=== PATIENT | male | born 1935 | race Hispanic/Latino ===

== ENCOUNTER 2017-10-08 23:04 | Inpatient (IN) | payer MEDICARE ==
[2017-10-08 23:18] VITALS: BMI 33.9
--- NOTE | 2017-10-08 23:47 | C.PDOC ---
"History Of Present Illness 82 year old male is transferred from [facility] for OR admission. As per [facility] records has PMHx of respiratory failure, subdural hematoma, CVA, Afibm craniotomy. Patient is completely unresponsive currently on a propolol drip. Patient unable to provide any history. Chief Complaint (Nursing): Respiratory Distress History Per: EMS History/Exam Limitations: clinical condition Onset/Duration Of Symptoms: Days Current Symptoms Are (Timing): Still Present Initiating Event: Upper Respiratory Illness Current Respiratory Medications: See Home Med List Reports Recently: Seen In ED ([facility]) Recent travel outside of the [place]: No Additional History Per: Prior Records Past Medical History Reviewed: Historical Data, Nursing Documentation, Vital Signs Vital Signs: Last Vital Signs Temp 95.8 F L 10/09/17 02:29 Pulse 111 H 10/09/17 02:29 Resp 20 10/09/17 02:29 BP 146/80 10/09/17 02:29 Pulse Ox 96 10/09/17 02:29 - Medical History PMH: Alzheimer's Disease, Atrial Fibrillation, Cardia Arrhythmia, Dementia, HTN , Hypercholesterolemia, Pneumonia Denies: Diabetes, Hepatitis, HIV, Chronic Kidney Disease, Seizures, Sexually Transmitted Disease Other Surgeries: craniotomy - [facility] Procedures EXTIRPATION OF MATTER FROM SUBDURAL SPACE, OPEN APPROACH (09/20/17) INSERTION OF ENDOTRACHEAL AIRWAY INTO TRACHEA, VIA OPENING (09/20/17) INSERTION OF FEEDING DEVICE INTO STOMACH, VIA OPENING (09/20/17) RESPIRATORY VENTILATION, GREATER THAN 96 CONSECUTIVE HOURS (09/20/17) TRANSFUSE NONAUT FROZEN PLASMA IN PERIPH VEIN, PERC (09/20/17) Family History: States: Unknown Family Hx - Social History Hx Alcohol Use: No Hx Substance Use: No - Immunization History Hx Tetanus Toxoid Vaccination: No Hx Influenza Vaccination: (unknown) Hx Pneumococcal Vaccination: (unknown) Review Of Systems Review Of Systems: ROS cannot be obtained secondary to pt's inabilty to answer questions. Physical Exam - Physical Exam Appears: Other (completely unresponsive ) Skin: Normal Color, Warm, Dry, Other (hypothermic) Head: Atraumatic, Normacephalic Oral Mucosa: Moist Neck: Supple Chest: Symmetrical Cardiovascular: Rhythm Regular Respiratory: Other (assisted ventilation, intubated) Gastrointestinal/Abdominal: Soft, No Tenderness, No Guarding, No Rebound, Other (GT tube in place) Extremity: Bilateral: Atraumatic, Normal Color And Temperature Pulses: Left Dorsalis Pedis: Normal, Right Dorsalis Pedis: Normal Neurological/Psych: No Response To Commands Gait: Unable To Assess ED Course And Treatment - Laboratory Results Result Diagrams: 10/08/17 23:46 10/08/17 23:46 O2 Sat by Pulse Oximetry: 95 (assisted ventilation) Pulse Ox Interpretation: Normal - Radiology CXR: Interpreted by Me, Viewed By Me CXR Interpretation: Yes: Other (bilateral lower lung field density) - CT Scan/US CT chest Other Rad Studies (CT/US): Read By Radiologist, Radiology Report Reviewed CT/US Interpretation: EXAM: CT Chest Without Intravenous Contrast. CLINICAL HISTORY: 82 years old, male; Pain; Chest pain; Additional info: Pneumonia. TECHNIQUE: Axial computed tomography images of the chest without intravenous contrast. All CT scans at this. facility use at least one of these dose optimization techniques: automated exposure control; mA. and/or kV adjustment per patient size (includes targeted exams where dose is matched to clinical. indication); or iterative reconstruction. 597 images are submitted. Coronal and sagittal reformatted images were created and reviewed. COMPARISON: No relevant prior studies available. FINDINGS: Artifacts: Limited due to motion and misregistration artifacts. Lungs: Bibasilar right middle lobe and lingular nonspecific infiltrates and consolidation are present,. consistent with atelectasis or pneumonia. Pleural space: Small bilateral pleural effusions. No pneumothorax. Heart: Cardiomegaly. Small pericardial effusion. Bones/joints: There is mild vertebral body height loss at L1 and L2 and minimal at T12. No acute. fracture. No dislocation. Soft tissues: Unremarkable. Vasculature: Unremarkable. No thoracic aortic aneurysm. Lymph nodes: Unremarkable. No enlarged lymph nodes. Pancreas: Fatty infiltration of the pancreas. Adrenals: Normal adrenal glands. Kidneys and ureters: Bilateral perinephric scarring may be a sequela of infection, inflammation or. aging. Stomach and bowel: Diverticulosis.Large amount of stool in the colon. Correlation with patient's. clinical history of constipation is recommended. Nonspecific gastric thickening with surrounding. nonspecific infiltration Right-sided pleural calcifications. likely due to under distention. Correlation. with clinical data is recommended if gastritis is suspected. LAUREN ELDER | Preliminary Radiology Report. CONFIDENTIALITY STATEMENT. This report is intended only for the use of the referring physician, and only in accordance with law, If you received this in error, call [phone]. Page 2 of 2. Tubes, lines and devices: The endotracheal tube is above the araseli. The feeding tube is in the. gastric fundus. IMPRESSION: 1. Bibasilar right middle lobe and lingular nonspecific infiltrates and consolidation are present, . consistent with atelectasis or pneumonia. 2. Small bilateral pleural effusions. Thank you for allowing us to participate in the care of your patient. Dictated and Authenticated by: Mervin Beckwith MD. 10/09/2017 2:01 AM Eastern Time ([place] & [place]) CT head Other Rad Studies (CT/US): Read By Radiologist, Radiology Report Reviewed CT/US Interpretation: Addendum created by Mervin Beckwith MD on 10/09/2017 2:14 AM Eastern Time ([place] & [place]). There is interval resolution of bilateral postop extra-axial air. The subdural drains have been. discontinued. Initial Report created on 10/09/2017 2:04 AM Eastern Time ([place] & [place]). EXAM: CT Head Without Intravenous Contrast. CLINICAL HISTORY: 82 years old, male; Pain; Headache and other: R/O bleed; Prior surgery; Patient HX: 6-27-18. TECHNIQUE: Axial computed tomography images of the head/brain without intravenous contrast. All CT scans at. this facility use at least one of these dose optimization techniques: automated exposure control; mA. and/or kV adjustment per patient size (includes targeted exams where dose is matched to clinical. indication); or iterative reconstruction. 408 images are submitted. COMPARISON : No relevant prior studies available. FINDINGS: Brain: Bilateral convexity left more than right chronic subdural hematomas versus hygromas. Cerebral and cerebellar volume loss. Patchy hypodensity is seen in the periventricular and. subcortical white matter. There is no evidence of acute intracranial hemorrhage. Right frontal. encephalomalacia. Scattered multifocal hypodensities representing subacute to chronic ischemic. change. Ventricles: Unremarkable. No ventriculomegaly. Bones/joints: Bilateral craniectomy with osseous hardware and overlying scalp skin jose. Sphenoid sinus disease with hyperostosis. Left posterior ethmoid air cell disease. No acute fracture. Soft tissues: Unremarkable. Sinuses: Unremarkable. No acute sinusitis. Mastoid air cells: Unremarkable. No mastoid effusion. IMPRESSION: LAUREN ELDER | Preliminary Radiology Report. CONFIDENTIALITY STATEMENT. This report is intended only for the use of the referring physician , and only in accordance with law, If you received this in error, call . Page 2 of 2. 1. Bilateral convexity left more than right chronic subdural hematomas versus hygromas. 2. There is no evidence of acute intracranial hemorrhage. Thank you for allowing us to participate in the care of your patient. Dictated and Authenticated by: Mervin Beckwith MD. 2017 2:04 AM Eastern Time ([place] & [place]) Medical Decision Making Medical Decision Making: Plan: * VBG * CT head * CT chest * EKG * LAbs * CXR * Blood culture * Ventilator Dr. Carballo made aware of the patient. Dr. Vanegas [facility] electronics technology department chair was also notified and will see the patient for an evaluation. Disposition Discussed With : Danika Carballo Doctor Will See Patient In The: Hospital Counseled Patient/Family Regarding: Diagnosis - Disposition Disposition: HOSPITALIZED Disposition Time: 01:17 Condition: GUARDED - Clinical Impression Clinical Impression: Respiratory failure - Scribe Statement The provider has reviewed the documentation as recorded by the Scribe Matt Quinn All medical record entries made by the Scribe were at my direction and personally dictated by me. I have reviewed the chart and agree that the record accurately reflects my personal performance of the history, physical exam, medical decision making, and the department course for this patient. I have also personally directed, reviewed, and agree with the discharge instructions and disposition."
[2017-10-08 23:57] LABS: INR 1.1; PROTHROMBIN TIME 12.2 SECONDS (9.7-12.2)
[2017-10-09 00:02] LABS: ALB/GLOB RATIO 0.8 (1.0-2.1); ALBUMIN 2.3 g/dL (3.5-5.0); ALT/SGPT 52 U/L (21-72); AST/SGOT 42 U/L (17-59); BLOOD UREA NITROGEN 66 mg/dL (9-20); CALCIUM 8.4 mg/dl (8.6-10.4); GFR AFRICAN-AMERICAN > 60; GFR NON-AFRICAN AMERICAN > 60
[2017-10-09 00:06] LABS: EOS # 0.1 K/uL (0.0-0.7); EOS % 0.5 % (0.0-4.0); HEMOGLOBIN 8.5 g/dL (12.0-18.0); MONO # 0.5 K/uL (0.0-0.8); RBC 2.67 Mil/uL (4.40-5.90); WHITE BLOOD COUNT 11.4 K/uL (4.8-10.8)
[2017-10-09 00:10] LABS: B-TYPE NATRIURETIC PEPTIDE 6600 pg/mL (0-900); BASO % 0.3 % (0.0-2.0); MEAN CORPUSCULAR HGB CONC 33.6 g/dL (33.0-37.0); MEAN PLATELET VOLUME 8.9 fL (7.2-11.7); MONO % 4.6 % (0.0-10.0); NEUT # 9.8 K/uL (1.8-7.0); NEUT % 85.6 % (50.0-75.0); NRBC % 0.2 % (0.0-2.0); PLATELET COUNT 204 K/uL (130-400); RED CELL DISTRIBUTION WIDTH 15.2 % (11.5-14.5)
[2017-10-09 00:14] LABS: VENOUS BLOOD GAS BASE EXCESS -0.7 mmol/L (0.0-2.0); VENOUS BLOOD GAS PCO2 40 mmHg (40-60); VENOUS BLOOD GAS PO2 34 mm/Hg (30-55); VENOUS BLOOD PH 7.39 (7.32-7.43)
[2017-10-09] MEDS ORDERED: Piperacillin/Tazobact 3.375 GM in Sodium Chloride 100 ML IVPB SCH (01:00)
[2017-10-09 01:10] LABS: BANDS 9 % (0-2); LYMPHOCYTE 12 % (20-40); MONOCYTE 7 % (0-10); MYELOCYTE 4 % (0-0); NEUTROPHIL 68 % (50-75); PLATELET ESTIMATE NORMAL (NORMAL); SMUDGE CELLS PRESENT; TOTAL CELLS COUNTED 100
--- NOTE | 2017-10-09 02:44 | CP.PCM.CON ---
History of Present Illness - History of Present Illness History of Present Illness: 82 year old male is transferred from [facility] for OR admission. h/o Atrial fibrillation,HTN,CVA,hyperlipidemia,DM,subdural hematoma s/p craniotomy evacuation,respiratory failure on ventilator recently transferred to [facility] . Patient unresponsive currently on a propolol drip when transferred to ER. Patient unable to provide any history. h/o recent herpes zosterinfection history from chart Review of Systems - Review of Systems Systems not reviewed;Unavailable: Intubated, Other Review of Systems: unable to get history due to mental status Past Patient History - Infectious Disease Hx of Infectious Diseases: None - Tetanus Immunizations Tetanus Immunization: Unknown - Past Social History Smoking Status: Never Smoked - CARDIAC Hx Atrial Fibrillation: Yes Hx Cardia Arrhythmia: Yes Hx Hypercholesterolemia: Yes Hx Hypertension: Yes - PULMONARY Hx Pneumonia: Yes - NEUROLOGICAL Hx Alzheimer's Disease: Yes Hx Dementia: Yes Hx Seizures: No - HEENT Hx HEENT Problems: No - RENAL Hx Chronic Kidney Disease: No - ENDOCRINE/METABOLIC Hx Diabetes Mellitus Type 1: Yes - HEMATOLOGICAL/ONCOLOGICAL Hx Human Immunodeficiency Virus (HIV): No - INTEGUMENTARY Hx Dermatological Problems: No - MUSCULOSKELETAL/RHEUMATOLOGICAL Hx Falls: Yes - GASTROINTESTINAL Hx Gastrointestinal Disorders: No Other/Comment: pt has oral gastric feeding tube on arrival to ed - GENITOURINARY/GYNECOLOGICAL Hx Sexually Transmitted Disorders: No - PSYCHIATRIC Hx Substance Use: No - SURGICAL HISTORY Hx Surgeries: No Other/Comment: august 2017, bilat craniotomy abd surgery - ANESTHESIA Hx Anesthesia: Yes Hx Anesthesia Reactions: No Hx Malignant Hyperthermia: No Meds Allergies/Adverse Reactions: Allergies Allergy/AdvReac Type Severity Reaction Status Date / Time No Known Allergies Allergy Verified 10/08/17 23:18 - Medications Medications: Current Medications Diltiazem HCl (Cardizem) 30 mg PO Q6 CHARLEEN Furosemide (Lasix) 20 mg PO DAILY CHARLEEN Piperacillin Sod/Tazobactam (Sod 3.375 gm/ Sodium Chloride) 100 mls @ 200 mls/ hr IVPB Q8H CHARLEEN PRN Reason: Protocol Pantoprazole Sodium (Protonix Inj) 40 mg IVP DAILY CHARLEEN Rosuvastatin Calcium (Crestor) 5 mg PO QPM CHARLEEN Physical Exam - Constitutional Appears: No Acute Distress - Head Exam Head Exam: NORMOCEPHALIC Additional comments: jose on scalp bilaterally - Eye Exam Eye Exam: PERRL. absent: Scleral icterus - ENT Exam ENT Exam: Mucous Membranes Dry - Neck Exam Additional comments: healing rash left neck - Respiratory Exam Respiratory Exam: NORMAL BREATHING PATTERN. absent: Respiratory Distress Additional comments: decreased breath sounds in bases - Cardiovascular Exam Cardiovascular Exam: Tachycardia, REGULAR RHYTHM. absent: JVD - GI/Abdominal Exam GI & Abdominal Exam: Normal Bowel Sounds, Soft - Extremities Exam Extremities exam: Positive for: pedal edema Additional comments: edema of all extremities PICC line right arm - Neurological Exam Additional comments: unresponsive to painful stimuli(off diprivan) - Skin Skin Exam: Normal Color, Rash Additional comments: healing rash left face/neck Results - Vital Signs Recent Vital Signs: Last Vital Signs Temp 95.8 F L 10/09/17 02:29 Pulse 111 H 10/09/17 02:29 Resp 20 10/09/17 02:29 BP 146/80 10/09/17 02:29 Pulse Ox 95 10/09/17 02:32 - Labs Result Diagrams: 10/08/17 23:46 10/08/17 23:46 Labs: Laboratory Results - last 24 hr 10/08/17 10/08/17 10/08/17 23:20 23:46 23:46 WBC 11.4 H RBC 2.67 L Hgb 8.5 L Hct 25.4 L MCV 95.0 H MCH 32.0 H MCHC 33.6 RDW 15.2 H Plt Count 204 MPV 8.9 Neut % (Auto) 85.6 H Lymph % (Auto) 9.0 L Bond % (Auto) 4.6 Eos % (Auto) 0.5 Baso % (Auto) 0.3 Neut # (Auto) 9.8 H Lymph # (Auto) 1.0 Bond # (Auto) 0.5 Eos # (Auto) 0.1 Baso # (Auto) 0.0 Neutrophils % (Manual) 68 Band Neutrophils % 9 H Lymphocytes % (Manual) 12 L Monocytes % (Manual) 7 Myelocytes % 4 H Smudge Cells Present Platelet Estimate Normal PT 12.2 INR 1.1 APTT 24 pO2 VBG pH VBG pCO2 VBG HCO3 VBG Total CO2 VBG O2 Sat (Calc) VBG Base Excess VBG Potassium Glucose Lactate FiO2 PEEP Sodium Potassium Chloride Carbon Dioxide Anion Gap BUN Creatinine Est GFR ( Amer) Est GFR (Non-Af Amer) POC Glucose (mg/dL) 332 H Random Glucose Calcium Total Bilirubin AST ALT Alkaline Phosphatase NT-Pro-B Natriuret Pep Total Protein Albumin Globulin Albumin/Globulin Ratio Venous Blood Potassium 10/08/17 10/09/17 23:46 00:00 WBC RBC Hgb Hct MCV MCH MCHC RDW Plt Count MPV Neut % (Auto) Lymph % (Auto) Bond % (Auto) Eos % (Auto) Baso % (Auto) Neut # (Auto) Lymph # (Auto) Bond # (Auto) Eos # (Auto) Baso # (Auto) Neutrophils % (Manual) Band Neutrophils % Lymphocytes % (Manual) Monocytes % (Manual) Myelocytes % Smudge Cells Platelet Estimate PT INR APTT pO2 34 VBG pH 7.39 VBG pCO2 40 VBG HCO3 23.5 VBG Total CO2 25.4 VBG O2 Sat (Calc) 70.0 H VBG Base Excess -0.7 L VBG Potassium 4.3 Glucose 316 H Lactate 1.7 FiO2 50.0 PEEP 5 Sodium 135 138.0 Potassium 4.4 Chloride 106 109.0 H Carbon Dioxide 20 L Anion Gap 14 BUN 66 H Creatinine 1.1 Est GFR ( Amer) > 60 Est GFR (Non-Af Amer) > 60 POC Glucose (mg/dL) Random Glucose 298 H Calcium 8.4 L Total Bilirubin 0.7 AST 42 ALT 52 Alkaline Phosphatase 165 H D NT-Pro-B Natriuret Pep 6600 H Total Protein 5.4 L Albumin 2.3 L Globulin 3.1 Albumin/Globulin Ratio 0.8 L Venous Blood Potassium 4.3 - EKG Data EKG Interpreted by: Myself - Imaging and Cardiology Chest x-ray Status: Image reviewed by me CT scan - head Status: Image reviewed by me, Report reviewed by me Assessment & Plan - Assessment and Plan (Free Text) Assessment: 1.Respiratory failure on vent transferred for OR procedure 2.Hypothermia/Pneumonia antibiotics Vent support follow up cultures 3.anemia f/u H/H 4.h/o Atrial fibrillation/CVA/HTN/Hyperlipidemia continue meds 5.DM-accucheck with coverage
[2017-10-09] MEDS: Piperacillin/Tazobact 3.375 GM in Sodium Chloride 100 ML IVPB SCH ×3 (04:00→20:44)
[2017-10-09] MEDS: (Novolin R) Insulin Human Regular 100 units/ml vial SC SCH ×3 (05:13→18:20)
[2017-10-09 06:26] LABS: ABG ALLEN TEST POS; ARTERIAL BLOOD GAS HCO3 23.4 mmol/L (21-28); ARTERIAL BLOOD GAS HEMOGLOBIN 8.8 g/dL (11.7-17.4); ARTERIAL BLOOD GAS O2 SAT 95.6 % (95-98); ARTERIAL BLOOD GAS PCO2 33 mm/Hg (35-45); ARTERIAL BLOOD GAS PH 7.43 (7.35-7.45); ARTERIAL BLOOD GAS PO2 103 mm/Hg (80-100); ARTERIAL BLOOD GAS TCO2 22.9 mmol/L (22-28)
[2017-10-09 06:41] LABS: BASO % 0.1 % (0.0-2.0); EOS % 0.3 % (0.0-4.0); HEMOGLOBIN 8.3 g/dL (12.0-18.0); LYMPH # 0.7 K/uL (1.0-4.3); LYMPH % 6.8 % (20.0-40.0); MEAN CELL VOLUME 94.4 fL (80.0-94.0); MEAN CORPUSCULAR HEMOGLOBIN 31.2 pg (27.0-31.0); MEAN CORPUSCULAR HGB CONC 33.1 g/dL (33.0-37.0); MEAN PLATELET VOLUME 8.5 fL (7.2-11.7); MONO # 0.5 K/uL (0.0-0.8); MONO % 4.7 % (0.0-10.0); NEUT # 9.5 K/uL (1.8-7.0); NEUT % 88.1 % (50.0-75.0); NRBC % 0.4 % (0.0-2.0); PLATELET COUNT 220 K/uL (130-400); RBC 2.67 Mil/uL (4.40-5.90); RED CELL DISTRIBUTION WIDTH 15.3 % (11.5-14.5); WHITE BLOOD COUNT 10.8 K/uL (4.8-10.8)
--- NOTE | 2017-10-09 07:06 | CP.PCM.CON ---
<Be Brooks - Last Filed: 10/09/17 07:18> History of Present Illness - History of Present Illness History of Present Illness: Surgery: Dr. Loya CC: Respiratory failure HPI: 82M w. 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 Pt is intubated GCS 3T, hx gathered from review of medical records. PMH: See above PSH: craniotomy Meds: MAR reviewed NKDA Social: no ETOH/tobacco/drugs Fhx: unknown Review of Systems - Review of Systems Systems not reviewed;Unavailable: Acuity of Condition Past Patient History - Infectious Disease Hx of Infectious Diseases: None - Tetanus Immunizations Tetanus Immunization: Unknown - Past Medical History & Family History Past Medical History?: Yes - Past Social History Smoking Status: Never Smoked - CARDIAC Hx Atrial Fibrillation: Yes Hx Cardia Arrhythmia: Yes Hx Hypercholesterolemia: Yes Hx Hypertension: Yes - PULMONARY Hx Pneumonia: Yes - NEUROLOGICAL Hx Alzheimer's Disease: Yes Hx Dementia: Yes Hx Seizures: No - HEENT Hx HEENT Problems: No - RENAL Hx Chronic Kidney Disease: No - ENDOCRINE/METABOLIC Hx Diabetes Mellitus Type 1: Yes - HEMATOLOGICAL/ONCOLOGICAL Hx Human Immunodeficiency Virus (HIV): No - INTEGUMENTARY Hx Dermatological Problems: No - MUSCULOSKELETAL/RHEUMATOLOGICAL Hx Falls: Yes - GASTROINTESTINAL Hx Gastrointestinal Disorders: No Other/Comment: pt has oral gastric feeding tube on arrival to ed - GENITOURINARY/GYNECOLOGICAL Hx Sexually Transmitted Disorders: No - PSYCHIATRIC Hx Substance Use: No - SURGICAL HISTORY Hx Surgeries: No Other/Comment: august 2017, bilat craniotomy abd surgery - ANESTHESIA Hx Anesthesia: Yes Hx Anesthesia Reactions: No Hx Malignant Hyperthermia: No Meds Allergies/Adverse Reactions: Allergies Allergy/AdvReac Type Severity Reaction Status Date / Time No Known Allergies Allergy Verified 10/08/17 23:18 - Medications Medications: Current Medications Diltiazem HCl (Cardizem) [address] [facility] Last Admin: 10/09/17 05:12 Dose: 30 mg Furosemide (Lasix) 20 mg PO DAILY [facility] Piperacillin Sod/Tazobactam (Sod 3.375 gm/ Sodium Chloride) 100 mls @ 200 mls/ hr IVPB Q8H [facility] PRN Reason: Protocol Last Admin: 10/09/17 04:00 Dose: 200 mls/hr Insulin Human Regular (Novolin R) 0 unit SC Q6 [facility] PRN Reason: Protocol Last Admin: 10/09/17 05:13 Dose: Not Given Pantoprazole Sodium (Protonix Inj) [address] [facility] Rosuvastatin Calcium (Crestor) [address] [facility] Physical Exam - Constitutional Appears: Chronically Ill - Head Exam Head Exam: ATRAUMATIC, NORMOCEPHALIC - ENT Exam ENT Exam: Mucous Membranes Dry - Respiratory Exam Additional comments: intubated - Cardiovascular Exam Cardiovascular Exam: REGULAR RHYTHM - GI/Abdominal Exam GI & Abdominal Exam: Soft. absent: Distended, Firm, Tenderness - Extremities Exam Extremities exam: Negative for: calf tenderness, pedal edema Results - Vital Signs Recent Vital Signs: Last Vital Signs Temp 97.0 F L 10/09/17 03:04 Pulse 100 H 10/09/17 03:04 Resp 14 10/09/17 03:04 BP 143/89 10/09/17 03:04 Pulse Ox 97 10/09/17 03:04 - Labs Result Diagrams: 10/09/17 06:32 10/09/17 06:32 Labs: Laboratory Results - last 24 hr 10/08/17 10/08/17 10/08/17 23:20 23:46 23:46 WBC 11.4 H RBC 2.67 L Hgb 8.5 L Hct 25.4 L MCV 95.0 H MCH 32.0 H MCHC 33.6 RDW 15.2 H Plt Count 204 MPV 8.9 Neut % (Auto) 85.6 H Lymph % (Auto) 9.0 L Williamson % (Auto) 4.6 Eos % (Auto) 0.5 Baso % (Auto) 0.3 Neut # (Auto) 9.8 H Lymph # (Auto) 1.0 Williamson # (Auto) 0.5 Eos # (Auto) 0.1 Baso # (Auto) 0.0 Neutrophils % (Manual) 68 Band Neutrophils % 9 H Lymphocytes % (Manual) 12 L Monocytes % (Manual) 7 Myelocytes % 4 H Smudge Cells Present Platelet Estimate Normal PT 12.2 INR 1.1 APTT 24 Puncture Site pCO2 pO2 HCO3 ABG pH ABG Total CO2 ABG O2 Saturation ABG Base Excess ABG Hemoglobin ABG Carboxyhemoglobin POC ABG HHb (Measured) ABG Methemoglobin Jose Raul Test VBG pH VBG pCO2 VBG HCO3 VBG Total CO2 VBG O2 Sat (Calc) VBG Base Excess VBG Potassium A-a O2 Difference Respiratory Index Hgb O2 Saturation Glucose Lactate Vent Mode Mechanical Rate FiO2 Tidal Volume PEEP Sodium Potassium Chloride Carbon Dioxide Anion Gap BUN Creatinine Est GFR ( Amer) Est GFR (Non-Af Amer) POC Glucose (mg/dL) 332 H Random Glucose Calcium Total Bilirubin AST ALT Alkaline Phosphatase NT-Pro-B Natriuret Pep Total Protein Albumin Globulin Albumin/Globulin Ratio Venous Blood Potassium 10/08/17 10/09/17 10/09/17 23:46 00:00 05:15 WBC RBC Hgb Hct MCV MCH MCHC RDW Plt Count MPV Neut % (Auto) Lymph % (Auto) Williamson % (Auto) Eos % (Auto) Baso % (Auto) Neut # (Auto) Lymph # (Auto) Williamson # (Auto) Eos # (Auto) Baso # (Auto) Neutrophils % (Manual) Band Neutrophils % Lymphocytes % (Manual) Monocytes % (Manual) Myelocytes % Smudge Cells Platelet Estimate PT INR APTT Puncture Site Lr pCO2 33 L pO2 34 103 H HCO3 23.4 ABG pH 7.43 ABG Total CO2 22.9 ABG O2 Saturation 95.6 ABG Base Excess -2.0 ABG Hemoglobin 8.8 L ABG Carboxyhemoglobin 0 L POC ABG HHb (Measured) 4.4 ABG Methemoglobin 0.2 Jose Raul Test Pos VBG pH 7.39 VBG pCO2 40 VBG HCO3 23.5 VBG Total CO2 25.4 VBG O2 Sat (Calc) 70.0 H VBG Base Excess -0.7 L VBG Potassium 4.3 A-a O2 Difference 212.0 Respiratory Index 2.1 Hgb O2 Saturation 95.3 Glucose 316 H Lactate 1.7 Vent Mode Prvc Mechanical Rate 14 FiO2 50.0 50.0 Tidal Volume 500 PEEP 5 5 Sodium 135 138.0 Potassium 4.4 Chloride 106 109.0 H Carbon Dioxide 20 L Anion Gap 14 BUN 66 H Creatinine 1.1 Est GFR ( Amer) > 60 Est GFR (Non-Af Amer) > 60 POC Glucose (mg/dL) Random Glucose 298 H Calcium 8.4 L Total Bilirubin 0.7 AST 42 ALT 52 Alkaline Phosphatase 165 H D NT-Pro-B Natriuret Pep 6600 H Total Protein 5.4 L Albumin 2.3 L Globulin 3.1 Albumin/Globulin Ratio 0.8 L Venous Blood Potassium 4.3 10/09/17 10/09/17 05:43 06:32 WBC 10.8 RBC 2.67 L Hgb 8.3 L Hct 25.2 L MCV 94.4 H MCH 31.2 H MCHC 33.1 RDW 15.3 H Plt Count 220 MPV 8.5 Neut % (Auto) 88.1 H Lymph % (Auto) 6.8 L Williamson % (Auto) 4.7 Eos % (Auto) 0.3 Baso % (Auto) 0.1 Neut # (Auto) 9.5 H Lymph # (Auto) 0.7 L Williamson # (Auto) 0.5 Eos # (Auto) 0.0 Baso # (Auto) 0.0 Neutrophils % (Manual) Band Neutrophils % Lymphocytes % (Manual) Monocytes % (Manual) Myelocytes % Smudge Cells Platelet Estimate PT INR APTT Puncture Site pCO2 pO2 HCO3 ABG pH ABG Total CO2 ABG O2 Saturation ABG Base Excess ABG Hemoglobin ABG Carboxyhemoglobin POC ABG HHb (Measured) ABG Methemoglobin Jose Raul Test VBG pH VBG pCO2 VBG HCO3 VBG Total CO2 VBG O2 Sat (Calc) VBG Base Excess VBG Potassium A-a O2 Difference Respiratory Index Hgb O2 Saturation Glucose Lactate Vent Mode Mechanical Rate FiO2 Tidal Volume PEEP Sodium Potassium Chloride Carbon Dioxide Anion Gap BUN Creatinine Est GFR ( Amer) Est GFR (Non-Af Amer) POC Glucose (mg/dL) 281 H Random Glucose Calcium Total Bilirubin AST ALT Alkaline Phosphatase NT-Pro-B Natriuret Pep Total Protein Albumin Globulin Albumin/Globulin Ratio Venous Blood Potassium Assessment & Plan - Assessment and Plan (Free Text) Assessment: 82M w. respiratory failure -Perc-trach and PEG when medically optimized, likely thursday -d/w attending [facility] PGY4 <Jamshid Loya B - Last Filed: 10/10/17 23:00> Meds - Medications Medications: Current Medications Diltiazem HCl (Cardizem) [address] [facility] Last Admin: 10/10/17 18:23 Dose: 30 mg Furosemide (Lasix) [address] [facility] Last Admin: 10/10/17 09:40 Dose: 20 mg Piperacillin Sod/Tazobactam (Sod 3.375 gm/ Sodium Chloride) 100 mls @ 200 mls/ hr IVPB Q8H [facility] PRN Reason: Protocol Last Admin: 10/10/17 20:00 Dose: 200 mls/hr Insulin Human Regular (Novolin R) 0 unit SC Q6 [facility] PRN Reason: Protocol Last Admin: 10/10/17 18:23 Dose: 3 u Pantoprazole Sodium (Protonix Inj) [address] [facility] Last Admin: 10/10/17 09:39 Dose: 40 mg Rosuvastatin Calcium (Crestor) 5 mg PO QPM [facility] Last Admin: 10/10/17 18:23 Dose: 5 mg Results - Vital Signs Recent Vital Signs: Last Vital Signs Temp 98.7 F 10/10/17 20:00 Pulse 93 H 10/10/17 22:00 Resp 23 10/10/17 21:00 BP 136/79 10/10/17 22:22 Pulse Ox 98 10/10/17 22:00 - Labs Result Diagrams: 10/10/17 06:06 10/10/17 06:07 Labs: Laboratory Results - last 24 hr 10/09/17 10/09/17 10/10/17 17:50 23:37 05:06 WBC RBC Hgb Hct MCV MCH MCHC RDW Plt Count MPV Neut % (Auto) Lymph % (Auto) Williamson % (Auto) Eos % (Auto) Baso % (Auto) Neut # (Auto) Lymph # (Auto) Williamson # (Auto) Eos # (Auto) Baso # (Auto) Puncture Site pCO2 pO2 HCO3 ABG pH ABG Total CO2 ABG O2 Saturation ABG Base Excess ABG Hemoglobin ABG Carboxyhemoglobin POC ABG HHb (Measured) ABG Methemoglobin Jose Raul Test A-a O2 Difference Respiratory Index Hgb O2 Saturation Vent Mode Mechanical Rate FiO2 Tidal Volume PEEP Sodium Potassium Chloride Carbon Dioxide Anion Gap BUN Creatinine Est GFR ( Amer) Est GFR (Non-Af Amer) POC Glucose (mg/dL) 245 H 298 H 209 H Random Glucose Calcium Phosphorus Magnesium Total Bilirubin AST ALT Alkaline Phosphatase Total Protein Albumin Globulin Albumin/Globulin Ratio 10/10/17 10/10/17 10/10/17 05:29 06:06 06:07 WBC 9.3 RBC 2.60 L Hgb 8.0 L Hct 24.6 L MCV 94.6 H MCH 30.9 MCHC 32.6 L RDW 14.8 H Plt Count 248 MPV 8.5 Neut % (Auto) 80.9 H Lymph % (Auto) 12.7 L Williamson % (Auto) 5.9 Eos % (Auto) 0.2 Baso % (Auto) 0.3 Neut # (Auto) 7.5 H Lymph # (Auto) 1.2 Williamson # (Auto) 0.5 Eos # (Auto) 0.0 Baso # (Auto) 0.0 Puncture Site Rr pCO2 31 L pO2 75 L HCO3 23.8 ABG pH 7.46 H ABG Total CO2 23.0 ABG O2 Saturation 94.4 L ABG Base Excess -1.4 ABG Hemoglobin 8.3 L ABG Carboxyhemoglobin 0 L POC ABG HHb (Measured) 5.6 H ABG Methemoglobin 0.4 Jose Raul Test Pos A-a O2 Difference 243.0 Respiratory Index 3.2 Hgb O2 Saturation 94.0 L Vent Mode Prvc Mechanical Rate 14 FiO2 50.0 Tidal Volume 500 PEEP 5 Sodium 144 Potassium 4.1 Chloride 111 H Carbon Dioxide 23 Anion Gap 14 BUN 63 H Creatinine 1.3 Est GFR ( Amer) > 60 Est GFR (Non-Af Amer) 53 POC Glucose (mg/dL) Random Glucose 217 H Calcium 8.4 L Phosphorus 3.7 Magnesium 2.1 Total Bilirubin 0.8 AST 82 H D ALT 58 Alkaline Phosphatase 102 Total Protein 5.4 L Albumin 2.3 L Globulin 3.2 Albumin/Globulin Ratio 0.7 L 10/10/17 10/10/17 11:50 17:31 WBC RBC Hgb Hct MCV MCH MCHC RDW Plt Count MPV Neut % (Auto) Lymph % (Auto) Williamson % (Auto) Eos % (Auto) Baso % (Auto) Neut # (Auto) Lymph # (Auto) Williamson # (Auto) Eos # (Auto) Baso # (Auto) Puncture Site pCO2 pO2 HCO3 ABG pH ABG Total CO2 ABG O2 Saturation ABG Base Excess ABG Hemoglobin ABG Carboxyhemoglobin POC ABG HHb (Measured) ABG Methemoglobin Jose Raul Test A-a O2 Difference Respiratory Index Hgb O2 Saturation Vent Mode Mechanical Rate FiO2 Tidal Volume PEEP Sodium Potassium Chloride Carbon Dioxide Anion Gap BUN Creatinine Est GFR ( Amer) Est GFR (Non-Af Amer) POC Glucose (mg/dL) 285 H 253 H Random Glucose Calcium Phosphorus Magnesium Total Bilirubin AST ALT Alkaline Phosphatase Total Protein Albumin Globulin Albumin/Globulin Ratio Attending/Attestation - Attestation I have personally seen and examined this patient.: Yes I have fully participated in the care of the patient.: Yes I have reviewed all pertinent clinical information: Yes Notes (Text): Pt was seen and examined at bedside Agree with above note and assessment Pt with ICH s/p Fall, VDRF and Dysphagia Labs and radiology reviewed Plan : CT scan of A/P due to previous Exp Lap Eliquis?? Please check with [facility] Consent EKG, CXR NPO, IVF Plan d.w pt's nurse and PMD in detail. Risk and benefit explained in detail.
[2017-10-09 07:09] LABS: ALB/GLOB RATIO 0.8 (1.0-2.1); ALBUMIN 2.3 g/dL (3.5-5.0); ALT/SGPT 41 U/L (21-72); AST/SGOT 38 U/L (17-59); BLOOD UREA NITROGEN 65 mg/dL (9-20); CALCIUM 8.4 mg/dl (8.6-10.4); GFR AFRICAN-AMERICAN > 60; GFR NON-AFRICAN AMERICAN > 60
--- NOTE | 2017-10-09 08:28 | RAD ---
Date of service: 10/08/2017 HISTORY: intubated COMPARISON: No prior. FINDINGS: The endotracheal tube terminates 3.7 cm proximal to the araseli. The nasogastric tube terminates in the stomach. The right PICC line terminates in the SVC. LUNGS: There is opacification in both lower lobes. PLEURA: Bilateral pleural effusions, no pneumothorax apparent. CARDIOVASCULAR: There is mild cardiomegaly. There is unfolding of the aorta. OSSEOUS STRUCTURES: No significant abnormalities. VISUALIZED UPPER ABDOMEN: Normal. OTHER FINDINGS: None. IMPRESSION: Findings may represent pulmonary edema and pleural effusions versus lower lobe consolidation. Endotracheal tube terminates 3.7 cm proximal to the araseli.
[2017-10-09 08:39] LABS: ANISOCYTOSIS SLIGHT; BANDS 9 % (0-2); HYPOCHROMIC SLIGHT; LYMPHOCYTE 10 % (20-40); METAMYELOCYTE 1 % (0-0); MONOCYTE 7 % (0-10); NEUTROPHIL 73 % (50-75); PLATELET ESTIMATE NORMAL (NORMAL); TOTAL CELLS COUNTED 100
--- NOTE | 2017-10-09 08:55 | CT ---
Date of service: 10/09/2017 PROCEDURE: CT HEAD WITHOUT CONTRAST. HISTORY: r/o bleed COMPARISON: None available. TECHNIQUE: Axial computed tomography images were obtained through the head/brain without intravenous contrast. Radiation dose: Total exam DLP = 1024.93 mGy-cm. This CT exam was performed using one or more of the following dose reduction techniques: Automated exposure control, adjustment of the mA and/or kV according to patient size, and/or use of iterative reconstruction technique. FINDINGS: HEMORRHAGE: There is a 9 mm high attenuation area in the right paramedian inferior frontal lobe. BRAIN: There are bilateral convexity chronic subdural hematomas versus hygromas, left larger than right. There are multifocal infarctions in the right frontal lobe, right basal ganglia, left read radiata and left parieto-occipital lobe. There is also a low-attenuation area in the left cerebellar hemisphere. VENTRICLES: There is mild age-related global parenchymal volume loss and proportionate enlargement of the ventricles and cortical sulci. CALVARIUM: Status post right parietal craniotomy PARANASAL SINUSES: Predominantly clear. MASTOID AIR CELLS: Predominantly clear. OTHER FINDINGS: None. IMPRESSION: 1. 9 mm hemorrhage in the right inferior paramedian frontal lobe. 2. 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 Small infarction in the left cerebellar hemisphere. Critical findings were discussed with Dr. Danika Le on the 10/09/2017 at 8:50 a.m.
--- NOTE | 2017-10-09 09:46 | RAD ---
Date of service: 10/09/2017 PROCEDURE: CHEST RADIOGRAPH, 1 VIEW HISTORY: respiratory failure COMPARISON: 10/08/2017. FINDINGS: The endotracheal tube terminates 3 cm proximal to the araseli. The nasogastric tube terminates in the stomach. The right PICC line terminates in the SVC. LUNGS: There is persistent dense airspace disease in the right lower lobe. There is interval improved aeration in the left lower lobe. PLEURA: No pneumothorax. Small pleural effusions. CARDIOVASCULAR: There is persistent mild cardiomegaly. OSSEOUS STRUCTURES: No significant abnormalities. VISUALIZED UPPER ABDOMEN: Normal. OTHER FINDINGS: None. IMPRESSION: Interval improved aeration in the left lower lobe. Persistent airspace disease in the right lower lobe which may represent pulmonary edema/ pneumonia. Small pleural effusions. Stable position of support line and tubes.
--- NOTE | 2017-10-09 10:25 | CT ---
Date of service: 10/09/2017 PROCEDURE: CT Chest without contrast HISTORY: Pneumonia COMPARISON: None. TECHNIQUE: Contiguous axial images were obtained through the chest without intravenous contrast enhancement. Sagittal and coronal reconstructions were performed. Radiation dose (DLP): 928.57 MGy-cm. This CT exam was performed using one or more of the following dose reduction techniques: Automated exposure control, adjustment of the mA and/or kV according to patient size, and/or use of iterative reconstruction technique. Motion artifact fine soft tissue and bone detail. FINDINGS: LUNGS: Bilateral low consolidation changes. There are curvilinear pleural base calcification seen in the right posterior lower lobe. MEDIASTINUM: lung field in situ PICC line with tip in the SVC. In situ tracheostomy tube, tip of which lies approximately 4 cm above araseli. In situ NGT distal aspect of which is located the stomach. Heart size is within range normal. No significant pericardial effusion. PLEURA: As above. No evidence of pneumothorax BONES: Multilevel degenerative spondylosis of the thoracic spine. Chronic superior endplate compression deformities L1, L2 and to a lesser degree T12 segments UPPER ABDOMEN: Grossly unremarkable. OTHER FINDINGS: None. IMPRESSION: Support lines and tubes as above. Bilateral lower lobe consolidation changes and bilateral effusions.
--- NOTE | 2017-10-09 14:21 | CT ---
Date of service: 10/09/2017 PROCEDURE: CT Abdomen and Pelvis without intravenous contrast HISTORY: evaluate position of colon COMPARISON: Row today CT thorax TECHNIQUE: Unenhanced study. Neither oral nor intravenous contrast administered. Radiation dose: Total exam DLP = 1666.19 mGy-cm. This CT exam was performed using one or more of the following dose reduction techniques: Automated exposure control, adjustment of the mA and/or kV according to patient size, and/or use of iterative reconstruction technique. FINDINGS: LOWER THORAX: Stable lower lobe infiltrates and associated small pleural effusions. LIVER: Unremarkable. No gross lesion or ductal dilatation. GALLBLADDER AND BILE DUCTS: Unremarkable. PANCREAS: Atrophic pancreas without focal or diffuse abnormality. SPLEEN: Unremarkable. ADRENALS: Unremarkable. No mass. KIDNEYS AND URETERS: Unremarkable. No hydronephrosis. No solid mass. VASCULATURE: Unremarkable. No aortic aneurysm. BOWEL: Fecal impaction, constipation. Normal anatomy in orientation of the colon. APPENDIX: Unremarkable. Normal appendix. PERITONEUM: Unremarkable. No free fluid. No free air. LYMPH NODES: Unremarkable. No enlarged lymph nodes. BLADDER: Unremarkable. REPRODUCTIVE: Unremarkable. BONES: No acute fracture. Spinal stenosis lower lumbar region. This is identified at L4-5 and L5-S1. OTHER FINDINGS: Nasogastric tube courses through the esophagus into a decompressed stomach. Mild anasarca. IMPRESSION: Constipation, fecal impaction. No mechanical obstruction. Additional benign and/or incidental findings described above.
--- NOTE | 2017-10-09 17:23 | CP.CCUPN ---
<Janeth Clayton - Last Filed: 10/09/17 17:35> CCU Subjective - Physician Review Subjective (Free Text): 10/09/17 17:16 82 yo M w/ PMHx of A fib, HTN, CVA, HLD, DM, SH s/p craniotomy evac, with acute respiratory failure on vent. Admitted to ICU for monitoring pending trach and PEG ROS unobtainable, pt on vent. Herpes Zoster infection noted 10/09/17 17:31 CCU Objective - Vital Signs / Intake & Output Intake and Output (Last 8hrs): Intake & Output 10/09/17 10/09/17 10/09/17 06:59 14:59 22:59 Intake Total 100 175 Balance 100 175 Weight 211 lb 10.3 oz Intake: Intake, IV Amount 100 100 Right PICC 100 100 Oral 0 Other 75 Other: # Voids Urine, Voided 1 0 # Bowel Movements 1 1 - Physical Exam Physical Exam Limitations: Negative for: Altered Mental Status Head: Positive for: Normocephalic Mouth: Positive for: Dry Respiratory/Chest: Positive for: Clear to Auscultation Cardiovascular: Positive for: Regular Rate and Rhythm, Normal S1, S2. Negative for: Murmurs Abdomen: Positive for: Normal Bowel Sounds. Negative for: Distention Upper Extremity: Negative for: Cyanosis, Edema Lower Extremity: Negative for: Edema Neurological: Negative for: GCS=15 Skin: Positive for: Rashes (herpes zoster infection noted, neck, chest) - Medications Active Medications: Active Medications Generic Name Dose Route Start Last Admin Trade Name Freq PRN Reason Stop Dose Admin Diltiazem HCl 30 mg 10/09/17 00:45 10/09/17 11:38 Cardizem PO 30 mg Q6 CHARLEEN Administration Furosemide 20 mg 10/09/17 10:00 10/09/17 10:04 Lasix PO 20 mg DAILY CHARLEEN Administration Piperacillin Sod/Tazobactam 100 mls @ 200 mls/hr 10/09/17 04:00 10/09/17 11: 38 Sod 3.375 gm/ Sodium Chloride IVPB 200 mls/hr Q8H CHARLEEN Administration Protocol Insulin Human Regular 0 unit 10/09/17 06:00 10/09/17 15:34 Novolin R SC Not Given Q6 CHARLEEN Protocol Pantoprazole Sodium 40 mg 10/09/17 10:00 10/09/17 10:04 Protonix Inj IVP 40 mg DAILY CHARLEEN Administration Rosuvastatin Calcium 5 mg 10/09/17 18:00 Crestor PO QPM CHARLEEN - Patient Studies Lab Studies: Lab Studies 10/09/17 10/09/17 10/09/17 Range/Units 13:13 06:32 06:32 WBC 10.8 (4.8-10.8) K/uL RBC 2.67 L (4.40-5.90) Mil/uL Hgb 8.3 L (12.0-18.0) g/dL Hct 25.2 L (35.0-51.0) % MCV 94.4 H (80.0-94.0) fL MCH 31.2 H (27.0-31.0) pg MCHC 33.1 (33.0-37.0) g/dL RDW 15.3 H (11.5-14.5) % Plt Count 220 (130-400) K/uL MPV 8.5 (7.2-11.7) fL Neut % (Auto) 88.1 H (50.0-75.0) % Lymph % (Auto) 6.8 L (20.0-40.0) % [place] % (Auto) 4.7 (0.0-10.0) % Eos % (Auto) 0.3 (0.0-4.0) % Baso % (Auto) 0.1 (0.0-2.0) % Neut # (Auto) 9.5 H (1.8-7.0) K/uL Lymph # (Auto) 0.7 L (1.0-4.3) K/uL [place] # (Auto) 0.5 (0.0-0.8) K/uL Eos # (Auto) 0.0 (0.0-0.7) K/uL Baso # (Auto) 0.0 (0.0-0.2) K/uL Neutrophils % (Manual) 73 (50-75) % Band Neutrophils % 9 H (0-2) % Lymphocytes % (Manual) 10 L (20-40) % Monocytes % (Manual) 7 (0-10) % Metamyelocytes % 1 H (0-0) % Myelocytes % (0-0) % Smudge Cells Platelet Estimate Normal (NORMAL) Hypochromasia (manual) Slight Anisocytosis (manual) Slight PT (9.7-12.2) SECONDS INR APTT (21-34) SECONDS Puncture Site pCO2 (35-45) mm/Hg pO2 (30-55) mm/Hg HCO3 (21-28) mmol/L ABG pH (7.35-7.45) ABG Total CO2 (22-28) mmol/L ABG O2 Saturation (95-98) % ABG Base Excess (-2.0-3.0) mmol/L ABG Hemoglobin (11.7-17.4) g/dL ABG Carboxyhemoglobin (0.5-1.5) % POC ABG HHb (Measured) (0.0-5.0) % ABG Methemoglobin (0.0-3.0) % Jose Raul Test VBG pH (7.32-7.43) VBG pCO2 (40-60) mmHg VBG HCO3 mmol/L VBG Total CO2 (22-28) mmol/L VBG O2 Sat (Calc) (40-65) % VBG Base Excess (0.0-2.0) mmol/L VBG Potassium (3.6-5.2) mmol/L A-a O2 Difference mm/Hg Respiratory Index Hgb O2 Saturation (95.0-98.0) % Glucose (75-110) mg/dl Lactate (0.7-2.1) mmol/L Vent Mode Mechanical Rate FiO2 % Tidal Volume PEEP Sodium 140 (132-148) mmol/L Potassium 4.6 (3.6-5.2) mmol/L Chloride 108 H (98-107) mmol/L Carbon Dioxide 22 (22-30) mmol/L Anion Gap 14 (10-20) BUN 65 H (9-20) mg/dL Creatinine 1.1 (0.8-1.5) mg/dL Est GFR ( Amer) > 60 Est GFR (Non-Af Amer) > 60 POC Glucose (mg/dL) 233 H (65-110) mg/dL Random Glucose 286 H (75-110) mg/dL Calcium 8.4 L (8.6-10.4) mg/dl Phosphorus 4.0 (2.5-4.5) mg/dL Magnesium 2.1 (1.6-2.3) mg/dL Total Bilirubin 0.7 (0.2-1.3) mg/dL AST 38 (17-59) U/L ALT 41 (21-72) U/L Alkaline Phosphatase 141 H (38-126) U/L NT-Pro-B Natriuret Pep (0-900) pg/mL Total Protein 5.3 L (6.3-8.3) g/dL Albumin 2.3 L (3.5-5.0) g/dL Globulin 3.0 (2.2-3.9) gm/dL Albumin/Globulin Ratio 0.8 L (1.0-2.1) Venous Blood Potassium (3.6-5.2) mmol/L 10/09/17 10/09/17 10/09/17 Range/Units 05:43 05:15 00:00 WBC (4.8-10.8) K/uL RBC (4.40-5.90) Mil/uL Hgb (12.0-18.0) g/dL Hct (35.0-51.0) % MCV (80.0-94.0) fL MCH (27.0-31.0) pg MCHC (33.0-37.0) g/dL RDW (11.5-14.5) % Plt Count (130-400) K/uL MPV (7.2-11.7) fL Neut % (Auto) (50.0-75.0) % Lymph % (Auto) (20.0-40.0) % [place] % (Auto) (0.0-10.0) % Eos % (Auto) (0.0-4.0) % Baso % (Auto) (0.0-2.0) % Neut # (Auto) (1.8-7.0) K/uL Lymph # (Auto) (1.0-4.3) K/uL [place] # (Auto) (0.0-0.8) K/uL Eos # (Auto) (0.0-0.7) K/uL Baso # (Auto) (0.0-0.2) K/uL Neutrophils % (Manual) (50-75) % Band Neutrophils % (0-2) % Lymphocytes % (Manual) (20-40) % Monocytes % (Manual) (0-10) % Metamyelocytes % (0-0) % Myelocytes % (0-0) % Smudge Cells Platelet Estimate (NORMAL) Hypochromasia (manual) Anisocytosis (manual) PT (9.7-12.2) SECONDS INR APTT (21-34) SECONDS Puncture Site Lr pCO2 33 L (35-45) mm/Hg pO2 103 H 34 (30-55) mm/Hg HCO3 23.4 (21-28) mmol/L ABG pH 7.43 (7.35-7.45) ABG Total CO2 22.9 (22-28) mmol/L ABG O2 Saturation 95.6 (95-98) % ABG Base Excess -2.0 (-2.0-3.0) mmol/L ABG Hemoglobin 8.8 L (11.7-17.4) g/dL ABG Carboxyhemoglobin 0 L (0.5-1.5) % POC ABG HHb (Measured) 4.4 (0.0-5.0) % ABG Methemoglobin 0.2 (0.0-3.0) % Jose Raul Test Pos VBG pH 7.39 (7.32-7.43) VBG pCO2 40 (40-60) mmHg VBG HCO3 23.5 mmol/L VBG Total CO2 25.4 (22-28) mmol/L VBG O2 Sat (Calc) 70.0 H (40-65) % VBG Base Excess -0.7 L (0.0-2.0) mmol/L VBG Potassium 4.3 (3.6-5.2) mmol/L A-a O2 Difference 212.0 mm/Hg Respiratory Index 2.1 Hgb O2 Saturation 95.3 (95.0-98.0) % Glucose 316 H (75-110) mg/dl Lactate 1.7 (0.7-2.1) mmol/L Vent Mode Prvc Mechanical Rate 14 FiO2 50.0 50.0 % Tidal Volume 500 PEEP 5 5 Sodium 138.0 (132-148) mmol/L Potassium (3.6-5.2) mmol/L Chloride 109.0 H (98-107) mmol/L Carbon Dioxide (22-30) mmol/L Anion Gap (10-20) BUN (9-20) mg/dL Creatinine (0.8-1.5) mg/dL Est GFR ( Amer) Est GFR (Non-Af Amer) POC Glucose (mg/dL) 281 H (65-110) mg/dL Random Glucose (75-110) mg/dL Calcium (8.6-10.4) mg/dl Phosphorus (2.5-4.5) mg/dL Magnesium (1.6-2.3) mg/dL Total Bilirubin (0.2-1.3) mg/dL AST (17-59) U/L ALT (21-72) U/L Alkaline Phosphatase (38-126) U/L NT-Pro-B Natriuret Pep (0-900) pg/mL Total Protein (6.3-8.3) g/dL Albumin (3.5-5.0) g/dL Globulin (2.2-3.9) gm/dL Albumin/Globulin Ratio (1.0-2.1) Venous Blood Potassium 4.3 (3.6-5.2) mmol/L 10/08/17 10/08/17 10/08/17 Range/Units 23:46 23:46 23:46 WBC 11.4 H (4.8-10.8) K/uL RBC 2.67 L (4.40-5.90) Mil/uL Hgb 8.5 L (12.0-18.0) g/dL Hct 25.4 L (35.0-51.0) % MCV 95.0 H (80.0-94.0) fL MCH 32.0 H (27.0-31.0) pg MCHC 33.6 (33.0-37.0) g/dL RDW 15.2 H (11.5-14.5) % Plt Count 204 (130-400) K/uL MPV 8.9 (7.2-11.7) fL Neut % (Auto) 85.6 H (50.0-75.0) % Lymph % (Auto) 9.0 L (20.0-40.0) % [place] % (Auto) 4.6 (0.0-10.0) % Eos % (Auto) 0.5 (0.0-4.0) % Baso % (Auto) 0.3 (0.0-2.0) % Neut # (Auto) 9.8 H (1.8-7.0) K/uL Lymph # (Auto) 1.0 (1.0-4.3) K/uL [place] # (Auto) 0.5 (0.0-0.8) K/uL Eos # (Auto) 0.1 (0.0-0.7) K/uL Baso # (Auto) 0.0 (0.0-0.2) K/uL Neutrophils % (Manual) 68 (50-75) % Band Neutrophils % 9 H (0-2) % Lymphocytes % (Manual) 12 L (20-40) % Monocytes % (Manual) 7 (0-10) % Metamyelocytes % (0-0) % Myelocytes % 4 H (0-0) % Smudge Cells Present Platelet Estimate Normal (NORMAL) Hypochromasia (manual) Anisocytosis (manual) PT 12.2 (9.7-12.2) SECONDS INR 1.1 APTT 24 (21-34) SECONDS Puncture Site pCO2 (35-45) mm/Hg pO2 (30-55) mm/Hg HCO3 (21-28) mmol/L ABG pH (7.35-7.45) ABG Total CO2 (22-28) mmol/L ABG O2 Saturation (95-98) % ABG Base Excess (-2.0-3.0) mmol/L ABG Hemoglobin (11.7-17.4) g/dL ABG Carboxyhemoglobin (0.5-1.5) % POC ABG HHb (Measured) (0.0-5.0) % ABG Methemoglobin (0.0-3.0) % Jose Raul Test VBG pH (7.32-7.43) VBG pCO2 (40-60) mmHg VBG HCO3 mmol/L VBG Total CO2 (22-28) mmol/L VBG O2 Sat (Calc) (40-65) % VBG Base Excess (0.0-2.0) mmol/L VBG Potassium (3.6-5.2) mmol/L A-a O2 Difference mm/Hg Respiratory Index Hgb O2 Saturation (95.0-98.0) % Glucose (75-110) mg/dl Lactate (0.7-2.1) mmol/L Vent Mode Mechanical Rate FiO2 % Tidal Volume PEEP Sodium 135 (132-148) mmol/L Potassium 4.4 (3.6-5.2) mmol/L Chloride 106 (98-107) mmol/L Carbon Dioxide 20 L (22-30) mmol/L Anion Gap 14 (10-20) BUN 66 H (9-20) mg/dL Creatinine 1.1 (0.8-1.5) mg/dL Est GFR ( Amer) > 60 Est GFR (Non-Af Amer) > 60 POC Glucose (mg/dL) (65-110) mg/dL Random Glucose 298 H (75-110) mg/dL Calcium 8.4 L (8.6-10.4) mg/dl Phosphorus (2.5-4.5) mg/dL Magnesium (1.6-2.3) mg/dL Total Bilirubin 0.7 (0.2-1.3) mg/dL AST 42 (17-59) U/L ALT 52 (21-72) U/L Alkaline Phosphatase 165 H D (38-126) U/L NT-Pro-B Natriuret Pep 6600 H (0-900) pg/mL Total Protein 5.4 L (6.3-8.3) g/dL Albumin 2.3 L (3.5-5.0) g/dL Globulin 3.1 (2.2-3.9) gm/dL Albumin/Globulin Ratio 0.8 L (1.0-2.1) Venous Blood Potassium (3.6-5.2) mmol/L 10/08/17 Range/Units 23:20 WBC (4.8-10.8) K/uL RBC (4.40-5.90) Mil/uL Hgb (12.0-18.0) g/dL Hct (35.0-51.0) % MCV (80.0-94.0) fL MCH (27.0-31.0) pg MCHC (33.0-37.0) g/dL RDW (11.5-14.5) % Plt Count (130-400) K/uL MPV (7.2-11.7) fL Neut % (Auto) (50.0-75.0) % Lymph % (Auto) (20.0-40.0) % [place] % (Auto) (0.0-10.0) % Eos % (Auto) (0.0-4.0) % Baso % (Auto) (0.0-2.0) % Neut # (Auto) (1.8-7.0) K/uL Lymph # (Auto) (1.0-4.3) K/uL [place] # (Auto) (0.0-0.8) K/uL Eos # (Auto) (0.0-0.7) K/uL Baso # (Auto) (0.0-0.2) K/uL Neutrophils % (Manual) (50-75) % Band Neutrophils % (0-2) % Lymphocytes % (Manual) (20-40) % Monocytes % (Manual) (0-10) % Metamyelocytes % (0-0) % Myelocytes % (0-0) % Smudge Cells Platelet Estimate (NORMAL) Hypochromasia (manual) Anisocytosis (manual) PT (9.7-12.2) SECONDS INR APTT (21-34) SECONDS Puncture Site pCO2 (35-45) mm/Hg pO2 (30-55) mm/Hg HCO3 (21-28) mmol/L ABG pH (7.35-7.45) ABG Total CO2 (22-28) mmol/L ABG O2 Saturation (95-98) % ABG Base Excess (-2.0-3.0) mmol/L ABG Hemoglobin (11.7-17.4) g/dL ABG Carboxyhemoglobin (0.5-1.5) % POC ABG HHb (Measured) (0.0-5.0) % ABG Methemoglobin (0.0-3.0) % Jose Raul Test VBG pH (7.32-7.43) VBG pCO2 (40-60) mmHg VBG HCO3 mmol/L VBG Total CO2 (22-28) mmol/L VBG O2 Sat (Calc) (40-65) % VBG Base Excess (0.0-2.0) mmol/L VBG Potassium (3.6-5.2) mmol/L A-a O2 Difference mm/Hg Respiratory Index Hgb O2 Saturation (95.0-98.0) % Glucose (75-110) mg/dl Lactate (0.7-2.1) mmol/L Vent Mode Mechanical Rate FiO2 % Tidal Volume PEEP Sodium (132-148) mmol/L Potassium (3.6-5.2) mmol/L Chloride (98-107) mmol/L Carbon Dioxide (22-30) mmol/L Anion Gap (10-20) BUN (9-20) mg/dL Creatinine (0.8-1.5) mg/dL Est GFR ( Amer) Est GFR (Non-Af Amer) POC Glucose (mg/dL) 332 H (65-110) mg/dL Random Glucose (75-110) mg/dL Calcium (8.6-10.4) mg/dl Phosphorus (2.5-4.5) mg/dL Magnesium (1.6-2.3) mg/dL Total Bilirubin (0.2-1.3) mg/dL AST (17-59) U/L ALT (21-72) U/L Alkaline Phosphatase (38-126) U/L NT-Pro-B Natriuret Pep (0-900) pg/mL Total Protein (6.3-8.3) g/dL Albumin (3.5-5.0) g/dL Globulin (2.2-3.9) gm/dL Albumin/Globulin Ratio (1.0-2.1) Venous Blood Potassium (3.6-5.2) mmol/L Laboratory Results - last 24 hr 10/08/17 10/08/17 10/08/17 23:20 23:46 23:46 WBC 11.4 H RBC 2.67 L Hgb 8.5 L Hct 25.4 L MCV 95.0 H MCH 32.0 H MCHC 33.6 RDW 15.2 H Plt Count 204 MPV 8.9 Neut % (Auto) 85.6 H Lymph % (Auto) 9.0 L [place] % (Auto) 4.6 Eos % (Auto) 0.5 Baso % (Auto) 0.3 Neut # (Auto) 9.8 H Lymph # (Auto) 1.0 [place] # (Auto) 0.5 Eos # (Auto) 0.1 Baso # (Auto) 0.0 Neutrophils % (Manual) 68 Band Neutrophils % 9 H Lymphocytes % (Manual) 12 L Monocytes % (Manual) 7 Metamyelocytes % Myelocytes % 4 H Smudge Cells Present Platelet Estimate Normal Hypochromasia (manual) Anisocytosis (manual) PT 12.2 INR 1.1 APTT 24 Puncture Site pCO2 pO2 HCO3 ABG pH ABG Total CO2 ABG O2 Saturation ABG Base Excess ABG Hemoglobin ABG Carboxyhemoglobin POC ABG HHb (Measured) ABG Methemoglobin Jose Raul Test VBG pH VBG pCO2 VBG HCO3 VBG Total CO2 VBG O2 Sat (Calc) VBG Base Excess VBG Potassium A-a O2 Difference Respiratory Index Hgb O2 Saturation Glucose Lactate Vent Mode Mechanical Rate FiO2 Tidal Volume PEEP Sodium Potassium Chloride Carbon Dioxide Anion Gap BUN Creatinine Est GFR ( Amer) Est GFR (Non-Af Amer) POC Glucose (mg/dL) 332 H Random Glucose Calcium Phosphorus Magnesium Total Bilirubin AST ALT Alkaline Phosphatase NT-Pro-B Natriuret Pep Total Protein Albumin Globulin Albumin/Globulin Ratio Venous Blood Potassium 10/08/17 10/09/17 10/09/17 23:46 00:00 05:15 WBC RBC Hgb Hct MCV MCH MCHC RDW Plt Count MPV Neut % (Auto) Lymph % (Auto) [place] % (Auto) Eos % (Auto) Baso % (Auto) Neut # (Auto) Lymph # (Auto) [place] # (Auto) Eos # (Auto) Baso # (Auto) Neutrophils % (Manual) Band Neutrophils % Lymphocytes % (Manual) Monocytes % (Manual) Metamyelocytes % Myelocytes % Smudge Cells Platelet Estimate Hypochromasia (manual) Anisocytosis (manual) PT INR APTT Puncture Site Lr pCO2 33 L pO2 34 103 H HCO3 23.4 ABG pH 7.43 ABG Total CO2 22.9 ABG O2 Saturation 95.6 ABG Base Excess -2.0 ABG Hemoglobin 8.8 L ABG Carboxyhemoglobin 0 L POC ABG HHb (Measured) 4.4 ABG Methemoglobin 0.2 Jose Raul Test Pos VBG pH 7.39 VBG pCO2 40 VBG HCO3 23.5 VBG Total CO2 25.4 VBG O2 Sat (Calc) 70.0 H VBG Base Excess -0.7 L VBG Potassium 4.3 A-a O2 Difference 212.0 Respiratory Index 2.1 Hgb O2 Saturation 95.3 Glucose 316 H Lactate 1.7 Vent Mode Prvc Mechanical Rate 14 FiO2 50.0 50.0 Tidal Volume 500 PEEP 5 5 Sodium 135 138.0 Potassium 4.4 Chloride 106 109.0 H Carbon Dioxide 20 L Anion Gap 14 BUN 66 H Creatinine 1.1 Est GFR ( Amer) > 60 Est GFR (Non-Af Amer) > 60 POC Glucose (mg/dL) Random Glucose 298 H Calcium 8.4 L Phosphorus Magnesium Total Bilirubin 0.7 AST 42 ALT 52 Alkaline Phosphatase 165 H D NT-Pro-B Natriuret Pep 6600 H Total Protein 5.4 L Albumin 2.3 L Globulin 3.1 Albumin/Globulin Ratio 0.8 L Venous Blood Potassium 4.3 10/09/17 10/09/17 10/09/17 05:43 06:32 06:32 WBC 10.8 RBC 2.67 L Hgb 8.3 L Hct 25.2 L MCV 94.4 H MCH 31.2 H MCHC 33.1 RDW 15.3 H Plt Count 220 MPV 8.5 Neut % (Auto) 88.1 H Lymph % (Auto) 6.8 L [place] % (Auto) 4.7 Eos % (Auto) 0.3 Baso % (Auto) 0.1 Neut # (Auto) 9.5 H Lymph # (Auto) 0.7 L [place] # (Auto) 0.5 Eos # (Auto) 0.0 Baso # (Auto) 0.0 Neutrophils % (Manual) 73 Band Neutrophils % 9 H Lymphocytes % (Manual) 10 L Monocytes % (Manual) 7 Metamyelocytes % 1 H Myelocytes % Smudge Cells Platelet Estimate Normal Hypochromasia (manual) Slight Anisocytosis (manual) Slight PT INR APTT Puncture Site pCO2 pO2 HCO3 ABG pH ABG Total CO2 ABG O2 Saturation ABG Base Excess ABG Hemoglobin ABG Carboxyhemoglobin POC ABG HHb (Measured) ABG Methemoglobin Jose Raul Test VBG pH VBG pCO2 VBG HCO3 VBG Total CO2 VBG O2 Sat (Calc) VBG Base Excess VBG Potassium A-a O2 Difference Respiratory Index Hgb O2 Saturation Glucose Lactate Vent Mode Mechanical Rate FiO2 Tidal Volume PEEP Sodium 140 Potassium 4.6 Chloride 108 H Carbon Dioxide 22 Anion Gap 14 BUN 65 H Creatinine 1.1 Est GFR ( Amer) > 60 Est GFR (Non-Af Amer) > 60 POC Glucose (mg/dL) 281 H Random Glucose 286 H Calcium 8.4 L Phosphorus 4.0 Magnesium 2.1 Total Bilirubin 0.7 AST 38 ALT 41 Alkaline Phosphatase 141 H NT-Pro-B Natriuret Pep Total Protein 5.3 L Albumin 2.3 L Globulin 3.0 Albumin/Globulin Ratio 0.8 L Venous Blood Potassium 10/09/17 13:13 WBC RBC Hgb Hct MCV MCH MCHC RDW Plt Count MPV Neut % (Auto) Lymph % (Auto) [place] % (Auto) Eos % (Auto) Baso % (Auto) Neut # (Auto) Lymph # (Auto) [place] # (Auto) Eos # (Auto) Baso # (Auto) Neutrophils % (Manual) Band Neutrophils % Lymphocytes % (Manual) Monocytes % (Manual) Metamyelocytes % Myelocytes % Smudge Cells Platelet Estimate Hypochromasia (manual) Anisocytosis (manual) PT INR APTT Puncture Site pCO2 pO2 HCO3 ABG pH ABG Total CO2 ABG O2 Saturation ABG Base Excess ABG Hemoglobin ABG Carboxyhemoglobin POC ABG HHb (Measured) ABG Methemoglobin Jose Raul Test VBG pH VBG pCO2 VBG HCO3 VBG Total CO2 VBG O2 Sat (Calc) VBG Base Excess VBG Potassium A-a O2 Difference Respiratory Index Hgb O2 Saturation Glucose Lactate Vent Mode Mechanical Rate FiO2 Tidal Volume PEEP Sodium Potassium Chloride Carbon Dioxide Anion Gap BUN Creatinine Est GFR ( Amer) Est GFR (Non-Af Amer) POC Glucose (mg/dL) 233 H Random Glucose Calcium Phosphorus Magnesium Total Bilirubin AST ALT Alkaline Phosphatase NT-Pro-B Natriuret Pep Total Protein Albumin Globulin Albumin/Globulin Ratio Venous Blood Potassium EKG/Cardiology Studies: Cardiology / EKG Studies 10/08/17 23:37 EKG [ELECTROCARDIOGRAM] Stat Comment: Mode Of Transportation: STRETCHER Reason For Exam: atrial fib Isolation: Contact Droplet Fingerstick Blood Sugar Results: 233 Review of Systems - Review of Systems Systems not reviewed;Unavailable: Intubated Critical Care Progress Note - Nutrition Nutrition: Nutrition Category Date Time Status NPO Diet [DIET] Diets 10/09/17 Breakfast Active Assessment/Plan - Assessment and Plan (Free Text) Assessment: 82 yo male admitted for trach and PEG 1. Trach and PEG -medically optimize pt for sx, likely Thursday -resume tube feeds Glucerna, NPO Thursday midnight -Sx consult Dr. Loya 2. A fib -Cardio consult Dr. Dawkins -f/u echo 3. HTN -cardizem 30mg PO -lasix 20mg q6 4. HLD -rosuvastatin 5mg qpm 4. Leukocytosis -WBC 11.4 on admission -Zosyn 3.375 q8 - - Date & Time Date: 10/09/17 Time: 17:43 <Zuleika Arias - Last Filed: 10/09/17 22:11> CCU Objective - Vital Signs / Intake & Output Intake and Output (Last 8hrs): Intake & Output 10/09/17 10/09/17 10/09/17 06:59 14:59 22:59 Intake Total 100 175 160 Output Total 800 Balance 100 175 -640 Weight 211 lb 10.3 oz Intake: Intake, IV Amount 100 100 Right PICC 100 100 Oral 0 Tube Feeding 110 Other 75 50 Output: Urine 800 Urine, Voided 800 Other: # Voids Urine, Voided 1 0 # Bowel Movements 1 1 1 - Medications Active Medications: Active Medications Generic Name Dose Route Start Last Admin Trade Name Freq PRN Reason Stop Dose Admin Diltiazem HCl 30 mg 10/09/17 00:45 10/09/17 17:37 Cardizem PO 30 mg Q6 CHARLEEN Administration Furosemide 20 mg 10/09/17 10:00 10/09/17 10:04 Lasix PO 20 mg DAILY CHARLEEN Administration Piperacillin Sod/Tazobactam 100 mls @ 200 mls/hr 10/09/17 04:00 10/09/17 20: 44 Sod 3.375 gm/ Sodium Chloride IVPB 200 mls/hr Q8H CHARLEEN Administration Protocol Insulin Human Regular 0 unit 10/09/17 06:00 10/09/17 18:20 Novolin R SC 2 u Q6 CHARLEEN Administration Protocol Pantoprazole Sodium 40 mg 10/09/17 10:00 10/09/17 10:04 Protonix Inj IVP 40 mg DAILY CHARLEEN Administration Rosuvastatin Calcium 5 mg 10/09/17 18:00 10/09/17 17:37 Crestor PO 5 mg QPM CHARLEEN Administration - Patient Studies Lab Studies: Lab Studies 10/09/17 10/09/17 10/09/17 Range/Units 13:13 06:32 06:32 WBC 10.8 (4.8-10.8) K/uL RBC 2.67 L (4.40-5.90) Mil/uL Hgb 8.3 L (12.0-18.0) g/dL Hct 25.2 L (35.0-51.0) % MCV 94.4 H (80.0-94.0) fL MCH 31.2 H (27.0-31.0) pg MCHC 33.1 (33.0-37.0) g/dL RDW 15.3 H (11.5-14.5) % Plt Count 220 (130-400) K/uL MPV 8.5 (7.2-11.7) fL Neut % (Auto) 88.1 H (50.0-75.0) % Lymph % (Auto) 6.8 L (20.0-40.0) % [place] % (Auto) 4.7 (0.0-10.0) % Eos % (Auto) 0.3 (0.0-4.0) % Baso % (Auto) 0.1 (0.0-2.0) % Neut # (Auto) 9.5 H (1.8-7.0) K/uL Lymph # (Auto) 0.7 L (1.0-4.3) K/uL [place] # (Auto) 0.5 (0.0-0.8) K/uL Eos # (Auto) 0.0 (0.0-0.7) K/uL Baso # (Auto) 0.0 (0.0-0.2) K/uL Neutrophils % (Manual) 73 (50-75) % Band Neutrophils % 9 H (0-2) % Lymphocytes % (Manual) 10 L (20-40) % Monocytes % (Manual) 7 (0-10) % Metamyelocytes % 1 H (0-0) % Myelocytes % (0-0) % Smudge Cells Platelet Estimate Normal (NORMAL) Hypochromasia (manual) Slight Anisocytosis (manual) Slight PT (9.7-12.2) SECONDS INR APTT (21-34) SECONDS Puncture Site pCO2 (35-45) mm/Hg pO2 (30-55) mm/Hg HCO3 (21-28) mmol/L ABG pH (7.35-7.45) ABG Total CO2 (22-28) mmol/L ABG O2 Saturation (95-98) % ABG Base Excess (-2.0-3.0) mmol/L ABG Hemoglobin (11.7-17.4) g/dL ABG Carboxyhemoglobin (0.5-1.5) % POC ABG HHb (Measured) (0.0-5.0) % ABG Methemoglobin (0.0-3.0) % Jose Raul Test VBG pH (7.32-7.43) VBG pCO2 (40-60) mmHg VBG HCO3 mmol/L VBG Total CO2 (22-28) mmol/L VBG O2 Sat (Calc) (40-65) % VBG Base Excess (0.0-2.0) mmol/L VBG Potassium (3.6-5.2) mmol/L A-a O2 Difference mm/Hg Respiratory Index Hgb O2 Saturation (95.0-98.0) % Glucose (75-110) mg/dl Lactate (0.7-2.1) mmol/L Vent Mode Mechanical Rate FiO2 % Tidal Volume PEEP Sodium 140 (132-148) mmol/L Potassium 4.6 (3.6-5.2) mmol/L Chloride 108 H (98-107) mmol/L Carbon Dioxide 22 (22-30) mmol/L Anion Gap 14 (10-20) BUN 65 H (9-20) mg/dL Creatinine 1.1 (0.8-1.5) mg/dL Est GFR ( Amer) > 60 Est GFR (Non-Af Amer) > 60 POC Glucose (mg/dL) 233 H (65-110) mg/dL Random Glucose 286 H (75-110) mg/dL Calcium 8.4 L (8.6-10.4) mg/dl Phosphorus 4.0 (2.5-4.5) mg/dL Magnesium 2.1 (1.6-2.3) mg/dL Total Bilirubin 0.7 (0.2-1.3) mg/dL AST 38 (17-59) U/L ALT 41 (21-72) U/L Alkaline Phosphatase 141 H (38-126) U/L NT-Pro-B Natriuret Pep (0-900) pg/mL Total Protein 5.3 L (6.3-8.3) g/dL Albumin 2.3 L (3.5-5.0) g/dL Globulin 3.0 (2.2-3.9) gm/dL Albumin/Globulin Ratio 0.8 L (1.0-2.1) Venous Blood Potassium (3.6-5.2) mmol/L 10/09/17 10/09/17 10/09/17 Range/Units 05:43 05:15 00:00 WBC (4.8-10.8) K/uL RBC (4.40-5.90) Mil/uL Hgb (12.0-18.0) g/dL Hct (35.0-51.0) % MCV (80.0-94.0) fL MCH (27.0-31.0) pg MCHC (33.0-37.0) g/dL RDW (11.5-14.5) % Plt Count (130-400) K/uL MPV (7.2-11.7) fL Neut % (Auto) (50.0-75.0) % Lymph % (Auto) (20.0-40.0) % [place] % (Auto) (0.0-10.0) % Eos % (Auto) (0.0-4.0) % Baso % (Auto) (0.0-2.0) % Neut # (Auto) (1.8-7.0) K/uL Lymph # (Auto) (1.0-4.3) K/uL [place] # (Auto) (0.0-0.8) K/uL Eos # (Auto) (0.0-0.7) K/uL Baso # (Auto) (0.0-0.2) K/uL Neutrophils % (Manual) (50-75) % Band Neutrophils % (0-2) % Lymphocytes % (Manual) (20-40) % Monocytes % (Manual) (0-10) % Metamyelocytes % (0-0) % Myelocytes % (0-0) % Smudge Cells Platelet Estimate (NORMAL) Hypochromasia (manual) Anisocytosis (manual) PT (9.7-12.2) SECONDS INR APTT (21-34) SECONDS Puncture Site Lr pCO2 33 L (35-45) mm/Hg pO2 103 H 34 (30-55) mm/Hg HCO3 23.4 (21-28) mmol/L ABG pH 7.43 (7.35-7.45) ABG Total CO2 22.9 (22-28) mmol/L ABG O2 Saturation 95.6 (95-98) % ABG Base Excess -2.0 (-2.0-3.0) mmol/L ABG Hemoglobin 8.8 L (11.7-17.4) g/dL ABG Carboxyhemoglobin 0 L (0.5-1.5) % POC ABG HHb (Measured) 4.4 (0.0-5.0) % ABG Methemoglobin 0.2 (0.0-3.0) % Jose Raul Test Pos VBG pH 7.39 (7.32-7.43) VBG pCO2 40 (40-60) mmHg VBG HCO3 23.5 mmol/L VBG Total CO2 25.4 (22-28) mmol/L VBG O2 Sat (Calc) 70.0 H (40-65) % VBG Base Excess -0.7 L (0.0-2.0) mmol/L VBG Potassium 4.3 (3.6-5.2) mmol/L A-a O2 Difference 212.0 mm/Hg Respiratory Index 2.1 Hgb O2 Saturation 95.3 (95.0-98.0) % Glucose 316 H (75-110) mg/dl Lactate 1.7 (0.7-2.1) mmol/L Vent Mode Prvc Mechanical Rate 14 FiO2 50.0 50.0 % Tidal Volume 500 PEEP 5 5 Sodium 138.0 (132-148) mmol/L Potassium (3.6-5.2) mmol/L Chloride 109.0 H (98-107) mmol/L Carbon Dioxide (22-30) mmol/L Anion Gap (10-20) BUN (9-20) mg/dL Creatinine (0.8-1.5) mg/dL Est GFR ( Amer) Est GFR (Non-Af Amer) POC Glucose (mg/dL) 281 H (65-110) mg/dL Random Glucose (75-110) mg/dL Calcium (8.6-10.4) mg/dl Phosphorus (2.5-4.5) mg/dL Magnesium (1.6-2.3) mg/dL Total Bilirubin (0.2-1.3) mg/dL AST (17-59) U/L ALT (21-72) U/L Alkaline Phosphatase (38-126) U/L NT-Pro-B Natriuret Pep (0-900) pg/mL Total Protein (6.3-8.3) g/dL Albumin (3.5-5.0) g/dL Globulin (2.2-3.9) gm/dL Albumin/Globulin Ratio (1.0-2.1) Venous Blood Potassium 4.3 (3.6-5.2) mmol/L 10/08/17 10/08/17 10/08/17 Range/Units 23:46 23:46 23:46 WBC 11.4 H (4.8-10.8) K/uL RBC 2.67 L (4.40-5.90) Mil/uL Hgb 8.5 L (12.0-18.0) g/dL Hct 25.4 L (35.0-51.0) % MCV 95.0 H (80.0-94.0) fL MCH 32.0 H (27.0-31.0) pg MCHC 33.6 (33.0-37.0) g/dL RDW 15.2 H (11.5-14.5) % Plt Count 204 (130-400) K/uL MPV 8.9 (7.2-11.7) fL Neut % (Auto) 85.6 H (50.0-75.0) % Lymph % (Auto) 9.0 L (20.0-40.0) % [place] % (Auto) 4.6 (0.0-10.0) % Eos % (Auto) 0.5 (0.0-4.0) % Baso % (Auto) 0.3 (0.0-2.0) % Neut # (Auto) 9.8 H (1.8-7.0) K/uL Lymph # (Auto) 1.0 (1.0-4.3) K/uL [place] # (Auto) 0.5 (0.0-0.8) K/uL Eos # (Auto) 0.1 (0.0-0.7) K/uL Baso # (Auto) 0.0 (0.0-0.2) K/uL Neutrophils % (Manual) 68 (50-75) % Band Neutrophils % 9 H (0-2) % Lymphocytes % (Manual) 12 L (20-40) % Monocytes % (Manual) 7 (0-10) % Metamyelocytes % (0-0) % Myelocytes % 4 H (0-0) % Smudge Cells Present Platelet Estimate Normal (NORMAL) Hypochromasia (manual) Anisocytosis (manual) PT 12.2 (9.7-12.2) SECONDS INR 1.1 APTT 24 (21-34) SECONDS Puncture Site pCO2 (35-45) mm/Hg pO2 (30-55) mm/Hg HCO3 (21-28) mmol/L ABG pH (7.35-7.45) ABG Total CO2 (22-28) mmol/L ABG O2 Saturation (95-98) % ABG Base Excess (-2.0-3.0) mmol/L ABG Hemoglobin (11.7-17.4) g/dL ABG Carboxyhemoglobin (0.5-1.5) % POC ABG HHb (Measured) (0.0-5.0) % ABG Methemoglobin (0.0-3.0) % Jose Raul Test VBG pH (7.32-7.43) VBG pCO2 (40-60) mmHg VBG HCO3 mmol/L VBG Total CO2 (22-28) mmol/L VBG O2 Sat (Calc) (40-65) % VBG Base Excess (0.0-2.0) mmol/L VBG Potassium (3.6-5.2) mmol/L A-a O2 Difference mm/Hg Respiratory Index Hgb O2 Saturation (95.0-98.0) % Glucose (75-110) mg/dl Lactate (0.7-2.1) mmol/L Vent Mode Mechanical Rate FiO2 % Tidal Volume PEEP Sodium 135 (132-148) mmol/L Potassium 4.4 (3.6-5.2) mmol/L Chloride 106 (98-107) mmol/L Carbon Dioxide 20 L (22-30) mmol/L Anion Gap 14 (10-20) BUN 66 H (9-20) mg/dL Creatinine 1.1 (0.8-1.5) mg/dL Est GFR ( Amer) > 60 Est GFR (Non-Af Amer) > 60 POC Glucose (mg/dL) (65-110) mg/dL Random Glucose 298 H (75-110) mg/dL Calcium 8.4 L (8.6-10.4) mg/dl Phosphorus (2.5-4.5) mg/dL Magnesium (1.6-2.3) mg/dL Total Bilirubin 0.7 (0.2-1.3) mg/dL AST 42 (17-59) U/L ALT 52 (21-72) U/L Alkaline Phosphatase 165 H D (38-126) U/L NT-Pro-B Natriuret Pep 6600 H (0-900) pg/mL Total Protein 5.4 L (6.3-8.3) g/dL Albumin 2.3 L (3.5-5.0) g/dL Globulin 3.1 (2.2-3.9) gm/dL Albumin/Globulin Ratio 0.8 L (1.0-2.1) Venous Blood Potassium (3.6-5.2) mmol/L 10/08/17 Range/Units 23:20 WBC (4.8-10.8) K/uL RBC (4.40-5.90) Mil/uL Hgb (12.0-18.0) g/dL Hct (35.0-51.0) % MCV (80.0-94.0) fL MCH (27.0-31.0) pg MCHC (33.0-37.0) g/dL RDW (11.5-14.5) % Plt Count (130-400) K/uL MPV (7.2-11.7) fL Neut % (Auto) (50.0-75.0) % Lymph % (Auto) (20.0-40.0) % [place] % (Auto) (0.0-10.0) % Eos % (Auto) (0.0-4.0) % Baso % (Auto) (0.0-2.0) % Neut # (Auto) (1.8-7.0) K/uL Lymph # (Auto) (1.0-4.3) K/uL [place] # (Auto) (0.0-0.8) K/uL Eos # (Auto) (0.0-0.7) K/uL Baso # (Auto) (0.0-0.2) K/uL Neutrophils % (Manual) (50-75) % Band Neutrophils % (0-2) % Lymphocytes % (Manual) (20-40) % Monocytes % (Manual) (0-10) % Metamyelocytes % (0-0) % Myelocytes % (0-0) % Smudge Cells Platelet Estimate (NORMAL) Hypochromasia (manual) Anisocytosis (manual) PT (9.7-12.2) SECONDS INR APTT (21-34) SECONDS Puncture Site pCO2 (35-45) mm/Hg pO2 (30-55) mm/Hg HCO3 (21-28) mmol/L ABG pH (7.35-7.45) ABG Total CO2 (22-28) mmol/L ABG O2 Saturation (95-98) % ABG Base Excess (-2.0-3.0) mmol/L ABG Hemoglobin (11.7-17.4) g/dL ABG Carboxyhemoglobin (0.5-1.5) % POC ABG HHb (Measured) (0.0-5.0) % ABG Methemoglobin (0.0-3.0) % Jose Raul Test VBG pH (7.32-7.43) VBG pCO2 (40-60) mmHg VBG HCO3 mmol/L VBG Total CO2 (22-28) mmol/L VBG O2 Sat (Calc) (40-65) % VBG Base Excess (0.0-2.0) mmol/L VBG Potassium (3.6-5.2) mmol/L A-a O2 Difference mm/Hg Respiratory Index Hgb O2 Saturation (95.0-98.0) % Glucose (75-110) mg/dl Lactate (0.7-2.1) mmol/L Vent Mode Mechanical Rate FiO2 % Tidal Volume PEEP Sodium (132-148) mmol/L Potassium (3.6-5.2) mmol/L Chloride (98-107) mmol/L Carbon Dioxide (22-30) mmol/L Anion Gap (10-20) BUN (9-20) mg/dL Creatinine (0.8-1.5) mg/dL Est GFR ( Amer) Est GFR (Non-Af Amer) POC Glucose (mg/dL) 332 H (65-110) mg/dL Random Glucose (75-110) mg/dL Calcium (8.6-10.4) mg/dl Phosphorus (2.5-4.5) mg/dL Magnesium (1.6-2.3) mg/dL Total Bilirubin (0.2-1.3) mg/dL AST (17-59) U/L ALT (21-72) U/L Alkaline Phosphatase (38-126) U/L NT-Pro-B Natriuret Pep (0-900) pg/mL Total Protein (6.3-8.3) g/dL Albumin (3.5-5.0) g/dL Globulin (2.2-3.9) gm/dL Albumin/Globulin Ratio (1.0-2.1) Venous Blood Potassium (3.6-5.2) mmol/L Laboratory Results - last 24 hr 10/08/17 10/08/17 10/08/17 23:20 23:46 23:46 WBC 11.4 H RBC 2.67 L Hgb 8.5 L Hct 25.4 L MCV 95.0 H MCH 32.0 H MCHC 33.6 RDW 15.2 H Plt Count 204 MPV 8.9 Neut % (Auto) 85.6 H Lymph % (Auto) 9.0 L [place] % (Auto) 4.6 Eos % (Auto) 0.5 Baso % (Auto) 0.3 Neut # (Auto) 9.8 H Lymph # (Auto) 1.0 [place] # (Auto) 0.5 Eos # (Auto) 0.1 Baso # (Auto) 0.0 Neutrophils % (Manual) 68 Band Neutrophils % 9 H Lymphocytes % (Manual) 12 L Monocytes % (Manual) 7 Metamyelocytes % Myelocytes % 4 H Smudge Cells Present Platelet Estimate Normal Hypochromasia (manual) Anisocytosis (manual) PT 12.2 INR 1.1 APTT 24 Puncture Site pCO2 pO2 HCO3 ABG pH ABG Total CO2 ABG O2 Saturation ABG Base Excess ABG Hemoglobin ABG Carboxyhemoglobin POC ABG HHb (Measured) ABG Methemoglobin Jose Raul Test VBG pH VBG pCO2 VBG HCO3 VBG Total CO2 VBG O2 Sat (Calc) VBG Base Excess VBG Potassium A-a O2 Difference Respiratory Index Hgb O2 Saturation Glucose Lactate Vent Mode Mechanical Rate FiO2 Tidal Volume PEEP Sodium Potassium Chloride Carbon Dioxide Anion Gap BUN Creatinine Est GFR ( Amer) Est GFR (Non-Af Amer) POC Glucose (mg/dL) 332 H Random Glucose Calcium Phosphorus Magnesium Total Bilirubin AST ALT Alkaline Phosphatase NT-Pro-B Natriuret Pep Total Protein Albumin Globulin Albumin/Globulin Ratio Venous Blood Potassium 10/08/17 10/09/17 10/09/17 23:46 00:00 05:15 WBC RBC Hgb Hct MCV MCH MCHC RDW Plt Count MPV Neut % (Auto) Lymph % (Auto) [place] % (Auto) Eos % (Auto) Baso % (Auto) Neut # (Auto) Lymph # (Auto) [place] # (Auto) Eos # (Auto) Baso # (Auto) Neutrophils % (Manual) Band Neutrophils % Lymphocytes % (Manual) Monocytes % (Manual) Metamyelocytes % Myelocytes % Smudge Cells Platelet Estimate Hypochromasia (manual) Anisocytosis (manual) PT INR APTT Puncture Site Lr pCO2 33 L pO2 34 103 H HCO3 23.4 ABG pH 7.43 ABG Total CO2 22.9 ABG O2 Saturation 95.6 ABG Base Excess -2.0 ABG Hemoglobin 8.8 L ABG Carboxyhemoglobin 0 L POC ABG HHb (Measured) 4.4 ABG Methemoglobin 0.2 Jose Raul Test Pos VBG pH 7.39 VBG pCO2 40 VBG HCO3 23.5 VBG Total CO2 25.4 VBG O2 Sat (Calc) 70.0 H VBG Base Excess -0.7 L VBG Potassium 4.3 A-a O2 Difference 212.0 Respiratory Index 2.1 Hgb O2 Saturation 95.3 Glucose 316 H Lactate 1.7 Vent Mode Prvc Mechanical Rate 14 FiO2 50.0 50.0 Tidal Volume 500 PEEP 5 5 Sodium 135 138.0 Potassium 4.4 Chloride 106 109.0 H Carbon Dioxide 20 L Anion Gap 14 BUN 66 H Creatinine 1.1 Est GFR ( Amer) > 60 Est GFR (Non-Af Amer) > 60 POC Glucose (mg/dL) Random Glucose 298 H Calcium 8.4 L Phosphorus Magnesium Total Bilirubin 0.7 AST 42 ALT 52 Alkaline Phosphatase 165 H D NT-Pro-B Natriuret Pep 6600 H Total Protein 5.4 L Albumin 2.3 L Globulin 3.1 Albumin/Globulin Ratio 0.8 L Venous Blood Potassium 4.3 10/09/17 10/09/17 10/09/17 05:43 06:32 06:32 WBC 10.8 RBC 2.67 L Hgb 8.3 L Hct 25.2 L MCV 94.4 H MCH 31.2 H MCHC 33.1 RDW 15.3 H Plt Count 220 MPV 8.5 Neut % (Auto) 88.1 H Lymph % (Auto) 6.8 L [place] % (Auto) 4.7 Eos % (Auto) 0.3 Baso % (Auto) 0.1 Neut # (Auto) 9.5 H Lymph # (Auto) 0.7 L [place] # (Auto) 0.5 Eos # (Auto) 0.0 Baso # (Auto) 0.0 Neutrophils % (Manual) 73 Band Neutrophils % 9 H Lymphocytes % (Manual) 10 L Monocytes % (Manual) 7 Metamyelocytes % 1 H Myelocytes % Smudge Cells Platelet Estimate Normal Hypochromasia (manual) Slight Anisocytosis (manual) Slight PT INR APTT Puncture Site pCO2 pO2 HCO3 ABG pH ABG Total CO2 ABG O2 Saturation ABG Base Excess ABG Hemoglobin ABG Carboxyhemoglobin POC ABG HHb (Measured) ABG Methemoglobin Jose Raul Test VBG pH VBG pCO2 VBG HCO3 VBG Total CO2 VBG O2 Sat (Calc) VBG Base Excess VBG Potassium A-a O2 Difference Respiratory Index Hgb O2 Saturation Glucose Lactate Vent Mode Mechanical Rate FiO2 Tidal Volume PEEP Sodium 140 Potassium 4.6 Chloride 108 H Carbon Dioxide 22 Anion Gap 14 BUN 65 H Creatinine 1.1 Est GFR ( Amer) > 60 Est GFR (Non-Af Amer) > 60 POC Glucose (mg/dL) 281 H Random Glucose 286 H Calcium 8.4 L Phosphorus 4.0 Magnesium 2.1 Total Bilirubin 0.7 AST 38 ALT 41 Alkaline Phosphatase 141 H NT-Pro-B Natriuret Pep Total Protein 5.3 L Albumin 2.3 L Globulin 3.0 Albumin/Globulin Ratio 0.8 L Venous Blood Potassium 10/09/17 13:13 WBC RBC Hgb Hct MCV MCH MCHC RDW Plt Count MPV Neut % (Auto) Lymph % (Auto) [place] % (Auto) Eos % (Auto) Baso % (Auto) Neut # (Auto) Lymph # (Auto) [place] # (Auto) Eos # (Auto) Baso # (Auto) Neutrophils % (Manual) Band Neutrophils % Lymphocytes % (Manual) Monocytes % (Manual) Metamyelocytes % Myelocytes % Smudge Cells Platelet Estimate Hypochromasia (manual) Anisocytosis (manual) PT INR APTT Puncture Site pCO2 pO2 HCO3 ABG pH ABG Total CO2 ABG O2 Saturation ABG Base Excess ABG Hemoglobin ABG Carboxyhemoglobin POC ABG HHb (Measured) ABG Methemoglobin Jose Raul Test VBG pH VBG pCO2 VBG HCO3 VBG Total CO2 VBG O2 Sat (Calc) VBG Base Excess VBG Potassium A-a O2 Difference Respiratory Index Hgb O2 Saturation Glucose Lactate Vent Mode Mechanical Rate FiO2 Tidal Volume PEEP Sodium Potassium Chloride Carbon Dioxide Anion Gap BUN Creatinine Est GFR ( Amer) Est GFR (Non-Af Amer) POC Glucose (mg/dL) 233 H Random Glucose Calcium Phosphorus Magnesium Total Bilirubin AST ALT Alkaline Phosphatase NT-Pro-B Natriuret Pep Total Protein Albumin Globulin Albumin/Globulin Ratio Venous Blood Potassium EKG/Cardiology Studies: Cardiology / EKG Studies 10/08/17 23:37 EKG [ELECTROCARDIOGRAM] Stat Comment: Mode Of Transportation: STRETCHER Reason For Exam: atrial fib Isolation: Contact Droplet Critical Care Progress Note - Nutrition Nutrition: Nutrition Category Date Time Status NPO Diet [DIET] Diets 10/09/17 Breakfast Active Assessment/Plan - Assessment and Plan (Free Text) Assessment: Above resident note reveiwed and verified. Patient remains hemodynamically stable Herpex zoster lesions are dry and crusted -Patient will benefit from trach and peg
[2017-10-10] MEDS: (Novolin R) Insulin Human Regular 100 units/ml vial SC SCH ×4 (00:01→18:23)
[2017-10-10] MEDS: Piperacillin/Tazobact 3.375 GM in Sodium Chloride 100 ML IVPB SCH ×3 (04:17→20:00)
--- NOTE | 2017-10-10 04:56 | CON ---
DATE: 10/09/2017 REASON FOR CONSULTATION: Preoperative clearance for gastrostomy and tracheostomy tube placement. HISTORY OF PRESENT ILLNESS: The patient is an 82-year-old male who has history of chronic atrial fibrillation, on anticoagulation therapy, sustained a fall with bilateral subdural hematoma. The patient underwent bilateral craniotomy with evacuation of subdural hematoma according to an operative report dated 09/20/2017, i.e., 3 weeks ago. The patient was transferred to [facility]; however, he was readmitted yesterday to the ICU with a diagnosis of respiratory distress. The patient apparently was sent to [facility] with endotracheal tube, and the patient is being evaluated for possible tracheostomy as well as gastrostomy feeding tube placement. MEDICATIONS: Current medications are Cardizem 30 mg every 6 hours via nasogastric tube, Crestor 5 mg daily, Lasix 20 mg daily via nasogastric tube, Zosyn 3.375 gm intravenously every 8 hours, Protonix 40 mg intravenously daily. PAST MEDICAL HISTORY: Chronic atrial fibrillation, recent fall, and bilateral subdural hematoma, status post bilateral craniotomy 3 weeks ago. PHYSICAL EXAMINATION: GENERAL: The patient is an elderly male who is poorly responsive on ventilator. VITAL SIGNS: Blood pressure 149/67, heart rate 98, respirations 25, temperature 98.8. HEENT: Craniotomy scars were noted. NECK: No JVD. CHEST: Absent breath sounds over the bases. HEART: S1, S2 regular. ABDOMEN: Diminished bowel sounds. EXTREMITIES: 1+ pitting edema. LABORATORY DATA: Today's SMA-7: Sodium 140, potassium 4.6, chloride 108, CO2 of 22, glucose 186, BUN 65, creatinine 1.1. ProBNP is 6600. Magnesium level is within normal limit at 2.1. INR is 1.1, PTT 24. Hemoglobin and hematocrit today 8.3 and 25.2. White count and platelet count are within normal limit. Abdomen and pelvis CT scan without p.o. or IV contrast done today revealed constipation, fecal impaction, no mechanical obstruction. Chest CT scan without contrast, support lines and tubes in place, bilateral lower lobe consolidation and bilateral effusion. Head CT scan without contrast, 9 mm hemorrhage in the right inferior paramedian frontal lobe. Multifocal subacute/chronic infarcts, bilateral mid cerebral artery and left mid cerebral artery, posterior cerebral artery territories. Small infarcts in the left cerebellar hemisphere. Echocardiographic study performed in 06/2017 revealed normal left ventricular size, wall thickness with borderline ejection fraction, moderate aortic insufficiency, and mild to moderate mitral insufficiency with moderate pulmonary hypertension. EKG revealed atrial fibrillation at the rate 101, PVCs versus aberrancy, low voltage QRS. ASSESSMENT: 1. Chronic atrial fibrillation. 2. History of recent fall and bilateral craniotomy for bilateral subdural hematoma. 3. A 9 mm right frontal lobe hemorrhage with multifocal subacute/chronic bilateral mid cerebral artery and posterior cerebral artery territories. A small infarct in the left cerebellar hemisphere. 4. Respiratory failure. 5. Anemia. 6. Prerenal azotemia. RECOMMENDATIONS: Continue Cardizem 30 mg every 6 hours, Crestor 5 mg daily, IV Zosyn at 3.375 gm every 8 hours. Obtain a repeat bedside echocardiographic study. Marquis Dawkins MD
[2017-10-10 05:50] LABS: ABG ALLEN TEST POS; ARTERIAL BLOOD GAS HCO3 23.8 mmol/L (21-28); ARTERIAL BLOOD GAS HEMOGLOBIN 8.3 g/dL (11.7-17.4); ARTERIAL BLOOD GAS O2 SAT 94.4 % (95-98); ARTERIAL BLOOD GAS PCO2 31 mm/Hg (35-45); ARTERIAL BLOOD GAS PH 7.46 (7.35-7.45); ARTERIAL BLOOD GAS PO2 75 mm/Hg (80-100)
[2017-10-10 06:31] LABS: BASO % 0.3 % (0.0-2.0); EOS % 0.2 % (0.0-4.0); LYMPH # 1.2 K/uL (1.0-4.3); LYMPH % 12.7 % (20.0-40.0); MEAN CELL VOLUME 94.6 fL (80.0-94.0); MEAN CORPUSCULAR HEMOGLOBIN 30.9 pg (27.0-31.0); MEAN CORPUSCULAR HGB CONC 32.6 g/dL (33.0-37.0); MEAN PLATELET VOLUME 8.5 fL (7.2-11.7); MONO # 0.5 K/uL (0.0-0.8); MONO % 5.9 % (0.0-10.0); NEUT # 7.5 K/uL (1.8-7.0); NEUT % 80.9 % (50.0-75.0); NRBC % 1.6 % (0.0-2.0); RBC 2.6 Mil/uL (4.40-5.90); RED CELL DISTRIBUTION WIDTH 14.8 % (11.5-14.5); WHITE BLOOD COUNT 9.3 K/uL (4.8-10.8)
[2017-10-10 06:37] LABS: ALB/GLOB RATIO 0.7 (1.0-2.1); ALBUMIN 2.3 g/dL (3.5-5.0); ALT/SGPT 58 U/L (21-72); AST/SGOT 82 U/L (17-59); BLOOD UREA NITROGEN 63 mg/dL (9-20); CALCIUM 8.4 mg/dl (8.6-10.4); GFR AFRICAN-AMERICAN > 60; GFR NON-AFRICAN AMERICAN 53
--- NOTE | 2017-10-10 07:18 | CP.PCM.PN ---
<Conrado Grady - Last Filed: 10/10/17 07:16> Subjective - Date & Time of Evaluation Date of Evaluation: 10/10/17 Time of Evaluation: 07:16 - Subjective Subjective: General Surgery Progress Note for Dr. Loya 82M seen and evaluated this AM. No acute events overnight. Pt is intubated. Vent settings FiO2 55%, RR 14, TV 500. Objective - Vital Signs/Intake and Output Vital Signs (last 24 hours): Temp Pulse Resp BP Pulse Ox 99.9 F H 92 H 20 129/69 98 10/10/17 00:00 10/10/17 06:00 10/10/17 06:00 10/10/17 04:25 10/10/17 06:00 Intake and Output: 10/10/17 10/10/17 06:59 18:59 Intake Total 765 Output Total 900 Balance -135 - Medications Medications: Current Medications Diltiazem HCl (Cardizem) 30 mg PO Q6 [facility] Last Admin: 10/10/17 06:17 Dose: 30 mg Furosemide (Lasix) 20 mg PO DAILY [facility] Last Admin: 10/09/17 10:04 Dose: 20 mg Piperacillin Sod/Tazobactam (Sod 3.375 gm/ Sodium Chloride) 100 mls @ 200 mls/ hr IVPB Q8H [facility] PRN Reason: Protocol Last Admin: 10/10/17 04:17 Dose: 200 mls/hr Insulin Human Regular (Novolin R) 0 unit SC Q6 [facility] PRN Reason: Protocol Last Admin: 10/10/17 06:17 Dose: 2 u Pantoprazole Sodium (Protonix Inj) 40 mg IVP DAILY [facility] Last Admin: 10/09/17 10:04 Dose: 40 mg Rosuvastatin Calcium (Crestor) 5 mg PO QPM [facility] Last Admin: 10/09/17 17:37 Dose: 5 mg - Labs Labs: 10/10/17 06:06 10/10/17 06:07 PT 12.2 SECONDS (9.7-12.2) 10/08/17 23:46 INR 1.1 10/08/17 23:46 APTT 24 SECONDS (21-34) 10/08/17 23:46 - Constitutional Appears: Well, Non-toxic, No Acute Distress - Head Exam Head Exam: ATRAUMATIC, NORMAL INSPECTION, NORMOCEPHALIC - Eye Exam Eye Exam: EOMI, Normal appearance - Respiratory Exam Additional comments: Intubated - Cardiovascular Exam Cardiovascular Exam: REGULAR RHYTHM, +S1, +S2. absent: Murmur - GI/Abdominal Exam GI & Abdominal Exam: Soft, Hypoactive Bowel Sounds. absent: Tenderness Assessment and Plan - Assessment and Plan (Free Text) Assessment: 82M w/ respiratory failure Plan: Trach and PEG when medically optimized, likely thursday further recs per Dr. Vincenzo Grady PGY1 <Jamshid Loya - Last Filed: 10/10/17 23:11> Objective - Vital Signs/Intake and Output Vital Signs (last 24 hours): Temp Pulse Resp BP Pulse Ox 98.7 F 101 H 25 H 143/71 97 10/10/17 20:00 10/10/17 23:00 10/10/17 23:00 10/10/17 22:58 10/10/17 23:00 Intake and Output: 10/10/17 10/11/17 18:59 06:59 Intake Total 880 375 Output Total 800 Balance 80 375 - Medications Medications: Current Medications Diltiazem HCl (Cardizem) 30 mg PO Q6 [facility] Last Admin: 10/10/17 18:23 Dose: 30 mg Furosemide (Lasix) 20 mg PO DAILY [facility] Last Admin: 10/10/17 09:40 Dose: 20 mg Piperacillin Sod/Tazobactam (Sod 3.375 gm/ Sodium Chloride) 100 mls @ 200 mls/ hr IVPB Q8H [facility] PRN Reason: Protocol Last Admin: 10/10/17 20:00 Dose: 200 mls/hr Insulin Human Regular (Novolin R) 0 unit SC Q6 [facility] PRN Reason: Protocol Last Admin: 10/10/17 18:23 Dose: 3 u Pantoprazole Sodium (Protonix Inj) 40 mg IVP DAILY [facility] Last Admin: 10/10/17 09:39 Dose: 40 mg Rosuvastatin Calcium (Crestor) 5 mg PO QPM [facility] Last Admin: 10/10/17 18:23 Dose: 5 mg - Labs Labs: 10/10/17 06:06 10/10/17 06:07 PT 12.2 SECONDS (9.7-12.2) 10/08/17 23:46 INR 1.1 10/08/17 23:46 APTT 24 SECONDS (21-34) 10/08/17 23:46 Attending/Attestation - Attestation I have personally seen and examined this patient.: Yes I have fully participated in the care of the patient.: Yes I have reviewed all pertinent clinical information, including history, physical exam and plan: Yes Notes (Text): Pt was seen and examined at bedside Agree with above note and assessment CT scan of A/P reviewed Spoke to Dr. Carballo, Pt was never on Eliquis OR for Trach and PEG on thursday Consent from family Plan d.w pt in detail. Risk and benefit explained in detail.
--- NOTE | 2017-10-10 09:43 | RAD ---
Chest x-ray single frontal view History: Intubated. Comparison: 10/09/2017 Findings: Lines and tubes in stable position. Moderate right and small to moderate left pleural effusion. Upper lobe granulomatous changes. Moderate venous congestion. Confluent airspace opacities in the mid to lower lung zones bilaterally. Enlarged ectatic aorta. Cardiomegaly. Degenerative changes in the spine and shoulders. Impression: Lines and tubes in stable position. Moderate right and small to moderate left pleural effusion. Upper lobe granulomatous changes. Moderate venous congestion. Confluent airspace opacities in the mid to lower lung zones bilaterally. Enlarged ectatic aorta. Cardiomegaly. Degenerative changes in the spine and shoulders.
--- NOTE | 2017-10-10 22:04 | PN ---
DATE: 10/10/2017 SUBJECTIVE: The patient is unresponsive, on a ventilator. Frequent ventricular ectopy is noted as well as ventricular bigeminy. No reported hypotension. PHYSICAL EXAMINATION: VITAL SIGNS: Blood pressure 140/80, heart rate 101, temperature 99, respirations 22. HEENT: Pale conjunctivae. CHEST: Absent breath sounds over the bases. HEART: S1, S2 irregular. ABDOMEN: Positive bowel sounds. EXTREMITIES: 1+ pitting edema. LABORATORY DATA: SMA-7: Sodium 144, potassium 4.1, chloride 111, CO2 of 23, glucose 117, BUN 63, creatinine 1.3. Today's hemoglobin and hematocrit 8 and 24.6. White count and platelet count are within normal limits. Gram positive bacteremia. ASSESSMENT: 1. Chronic atrial fibrillation. 2. History of recent fall and bilateral craniotomy for bilateral subdural hematoma last month. 3. A 9-mm right frontal lobe hemorrhage with multifocal subacute/chronic bilateral ischemic infarcts. 4. Respiratory failure. 5. Anemia. 6. Prerenal azotemia. 7. Uncontrolled diabetes mellitus. 8. Positive bacteremia. RECOMMENDATIONS: Continue Cardizem 30 mg every 6 hours, Crestor 5 mg once a day, Lasix 20 mg p.o. once a day, Zosyn at 3.375 gm intravenously every 8 hours, Protonix 40 mg intravenously daily. I will review the echocardiographic study performed today. Marquis Dawkins MD
--- NOTE | 2017-10-10 22:25 | CP.CCUPN ---
CCU Subjective - Physician Review Events Since Last Encounter (Free Text): 10/10/17 22:24 Patient on ventilator. No response. Had a CAT scan. Awaiting for tracheostomy. Feeding tube pending. Overall prognosis is poor CCU Objective - Vital Signs / Intake & Output Vital Signs (Last 4 hours): Vital Signs Temp Pulse Resp BP Pulse Ox 10/10/17 21:00 101 H 23 98 10/10/17 20:58 101 H 22 130/77 98 10/10/17 20:00 98.7 F 97 H 21 139/89 98 10/10/17 19:59 94 H 26 H 130/79 98 10/10/17 19:00 104 H 22 99 10/10/17 18:58 102 H 24 139/89 98 Intake and Output (Last 8hrs): Intake & Output 10/10/17 10/10/17 10/10/17 06:59 14:59 22:59 Intake Total 500 560 585 Output Total 900 800 Balance -400 560 -215 Weight 210 lb 12.191 oz Intake: Intake, IV Amount 100 100 Right PICC 100 100 Oral 180 Tube Feeding 220 440 385 Other 120 100 Output: Urine 900 800 Urine, Voided 900 800 Other: # Bowel Movements 1 1 - Physical Exam Head: Positive for: Normocephalic Mouth: Positive for: Dry Respiratory/Chest: Positive for: Clear to Auscultation Cardiovascular: Positive for: Regular Rate and Rhythm, Normal S1, S2. Negative for: Murmurs Abdomen: Positive for: Normal Bowel Sounds. Negative for: Distention Upper Extremity: Negative for: Cyanosis, Edema Lower Extremity: Negative for: Edema Neurological: Negative for: GCS=15 Skin: Positive for: Rashes (herpes zoster infection noted, neck, chest) - Medications Active Medications: Active Medications Generic Name Dose Route Start Last Admin Trade Name Freq PRN Reason Stop Dose Admin Diltiazem HCl 30 mg 10/09/17 00:45 10/10/17 18:23 Cardizem PO 30 mg Q6 CHARELEN Administration Furosemide 20 mg 10/09/17 10:00 10/10/17 09:40 Lasix PO 20 mg DAILY CHARLEEN Administration Piperacillin Sod/Tazobactam 100 mls @ 200 mls/hr 10/09/17 04:00 10/10/17 20: 00 Sod 3.375 gm/ Sodium Chloride IVPB 200 mls/hr Q8H CHARLEEN Administration Protocol Insulin Human Regular 0 unit 10/09/17 06:00 10/10/17 18:23 Novolin R SC 3 u Q6 CHARLEEN Administration Protocol Pantoprazole Sodium 40 mg 10/09/17 10:00 10/10/17 09:39 Protonix Inj IVP 40 mg DAILY CHARLEEN Administration Rosuvastatin Calcium 5 mg 10/09/17 18:00 10/10/17 18:23 Crestor PO 5 mg QPM CHARLEEN Administration - Patient Studies Lab Studies: Microbiology Studies 10/08/17 23:45 S.aureus & Coag-Neg Staph PNA FISH - Final Blood-Thru Central Line Blood Culture - Preliminary Gram Positive Cocci Gram Stain - Final 10/09/17 06:57 MRSA Culture (Admit) - Final Naris MRSA NOT DETECTED 10/08/17 15:40 Blood Culture - Preliminary Blood-Thru Central Line Gram Positive Cocci Gram Stain - Final Lab Studies 10/10/17 10/10/17 10/10/17 Range/Units 17:31 11:50 06:07 WBC (4.8-10.8) K/uL RBC (4.40-5.90) Mil/uL Hgb (12.0-18.0) g/dL Hct (35.0-51.0) % MCV (80.0-94.0) fL MCH (27.0-31.0) pg MCHC (33.0-37.0) g/dL RDW (11.5-14.5) % Plt Count (130-400) K/uL MPV (7.2-11.7) fL Neut % (Auto) (50.0-75.0) % Lymph % (Auto) (20.0-40.0) % [place] % (Auto) (0.0-10.0) % Eos % (Auto) (0.0-4.0) % Baso % (Auto) (0.0-2.0) % Neut # (Auto) (1.8-7.0) K/uL Lymph # (Auto) (1.0-4.3) K/uL [place] # (Auto) (0.0-0.8) K/uL Eos # (Auto) (0.0-0.7) K/uL Baso # (Auto) (0.0-0.2) K/uL Puncture Site pCO2 (35-45) mm/Hg pO2 (80-100) mm/Hg HCO3 (21-28) mmol/L ABG pH (7.35-7.45) ABG Total CO2 (22-28) mmol/L ABG O2 Saturation (95-98) % ABG Base Excess (-2.0-3.0) mmol/L ABG Hemoglobin (11.7-17.4) g/dL ABG Carboxyhemoglobin (0.5-1.5) % POC ABG HHb (Measured) (0.0-5.0) % ABG Methemoglobin (0.0-3.0) % Jose Raul Test A-a O2 Difference mm/Hg Respiratory Index Hgb O2 Saturation (95.0-98.0) % Vent Mode Mechanical Rate FiO2 % Tidal Volume PEEP Sodium 144 (132-148) mmol/L Potassium 4.1 (3.6-5.2) mmol/L Chloride 111 H (98-107) mmol/L Carbon Dioxide 23 (22-30) mmol/L Anion Gap 14 (10-20) BUN 63 H (9-20) mg/dL Creatinine 1.3 (0.8-1.5) mg/dL Est GFR ( Amer) > 60 Est GFR (Non-Af Amer) 53 POC Glucose (mg/dL) 253 H 285 H (65-110) mg/dL Random Glucose 217 H (75-110) mg/dL Calcium 8.4 L (8.6-10.4) mg/dl Phosphorus 3.7 (2.5-4.5) mg/dL Magnesium 2.1 (1.6-2.3) mg/dL Total Bilirubin 0.8 (0.2-1.3) mg/dL AST 82 H D (17-59) U/L ALT 58 (21-72) U/L Alkaline Phosphatase 102 (38-126) U/L Total Protein 5.4 L (6.3-8.3) g/dL Albumin 2.3 L (3.5-5.0) g/dL Globulin 3.2 (2.2-3.9) gm/dL Albumin/Globulin Ratio 0.7 L (1.0-2.1) 10/10/17 10/10/17 10/10/17 Range/Units 06:06 05:29 05:06 WBC 9.3 (4.8-10.8) K/uL RBC 2.60 L (4.40-5.90) Mil/uL Hgb 8.0 L (12.0-18.0) g/dL Hct 24.6 L (35.0-51.0) % MCV 94.6 H (80.0-94.0) fL MCH 30.9 (27.0-31.0) pg MCHC 32.6 L (33.0-37.0) g/dL RDW 14.8 H (11.5-14.5) % Plt Count 248 (130-400) K/uL MPV 8.5 (7.2-11.7) fL Neut % (Auto) 80.9 H (50.0-75.0) % Lymph % (Auto) 12.7 L (20.0-40.0) % [place] % (Auto) 5.9 (0.0-10.0) % Eos % (Auto) 0.2 (0.0-4.0) % Baso % (Auto) 0.3 (0.0-2.0) % Neut # (Auto) 7.5 H (1.8-7.0) K/uL Lymph # (Auto) 1.2 (1.0-4.3) K/uL [place] # (Auto) 0.5 (0.0-0.8) K/uL Eos # (Auto) 0.0 (0.0-0.7) K/uL Baso # (Auto) 0.0 (0.0-0.2) K/uL Puncture Site Rr pCO2 31 L (35-45) mm/Hg pO2 75 L (80-100) mm/Hg HCO3 23.8 (21-28) mmol/L ABG pH 7.46 H (7.35-7.45) ABG Total CO2 23.0 (22-28) mmol/L ABG O2 Saturation 94.4 L (95-98) % ABG Base Excess -1.4 (-2.0-3.0) mmol/L ABG Hemoglobin 8.3 L (11.7-17.4) g/dL ABG Carboxyhemoglobin 0 L (0.5-1.5) % POC ABG HHb (Measured) 5.6 H (0.0-5.0) % ABG Methemoglobin 0.4 (0.0-3.0) % Jose Raul Test Pos A-a O2 Difference 243.0 mm/Hg Respiratory Index 3.2 Hgb O2 Saturation 94.0 L (95.0-98.0) % Vent Mode Prvc Mechanical Rate 14 FiO2 50.0 % Tidal Volume 500 PEEP 5 Sodium (132-148) mmol/L Potassium (3.6-5.2) mmol/L Chloride (98-107) mmol/L Carbon Dioxide (22-30) mmol/L Anion Gap (10-20) BUN (9-20) mg/dL Creatinine (0.8-1.5) mg/dL Est GFR ( Amer) Est GFR (Non-Af Amer) POC Glucose (mg/dL) 209 H (65-110) mg/dL Random Glucose (75-110) mg/dL Calcium (8.6-10.4) mg/dl Phosphorus (2.5-4.5) mg/dL Magnesium (1.6-2.3) mg/dL Total Bilirubin (0.2-1.3) mg/dL AST (17-59) U/L ALT (21-72) U/L Alkaline Phosphatase (38-126) U/L Total Protein (6.3-8.3) g/dL Albumin (3.5-5.0) g/dL Globulin (2.2-3.9) gm/dL Albumin/Globulin Ratio (1.0-2.1) 10/09/17 10/09/17 Range/Units 23:37 17:50 WBC (4.8-10.8) K/uL RBC (4.40-5.90) Mil/uL Hgb (12.0-18.0) g/dL Hct (35.0-51.0) % MCV (80.0-94.0) fL MCH (27.0-31.0) pg MCHC (33.0-37.0) g/dL RDW (11.5-14.5) % Plt Count (130-400) K/uL MPV (7.2-11.7) fL Neut % (Auto) (50.0-75.0) % Lymph % (Auto) (20.0-40.0) % [place] % (Auto) (0.0-10.0) % Eos % (Auto) (0.0-4.0) % Baso % (Auto) (0.0-2.0) % Neut # (Auto) (1.8-7.0) K/uL Lymph # (Auto) (1.0-4.3) K/uL [place] # (Auto) (0.0-0.8) K/uL Eos # (Auto) (0.0-0.7) K/uL Baso # (Auto) (0.0-0.2) K/uL Puncture Site pCO2 (35-45) mm/Hg pO2 (80-100) mm/Hg HCO3 (21-28) mmol/L ABG pH (7.35-7.45) ABG Total CO2 (22-28) mmol/L ABG O2 Saturation (95-98) % ABG Base Excess (-2.0-3.0) mmol/L ABG Hemoglobin (11.7-17.4) g/dL ABG Carboxyhemoglobin (0.5-1.5) % POC ABG HHb (Measured) (0.0-5.0) % ABG Methemoglobin (0.0-3.0) % Jose Raul Test A-a O2 Difference mm/Hg Respiratory Index Hgb O2 Saturation (95.0-98.0) % Vent Mode Mechanical Rate FiO2 % Tidal Volume PEEP Sodium (132-148) mmol/L Potassium (3.6-5.2) mmol/L Chloride (98-107) mmol/L Carbon Dioxide (22-30) mmol/L Anion Gap (10-20) BUN (9-20) mg/dL Creatinine (0.8-1.5) mg/dL Est GFR ( Amer) Est GFR (Non-Af Amer) POC Glucose (mg/dL) 298 H 245 H (65-110) mg/dL Random Glucose (75-110) mg/dL Calcium (8.6-10.4) mg/dl Phosphorus (2.5-4.5) mg/dL Magnesium (1.6-2.3) mg/dL Total Bilirubin (0.2-1.3) mg/dL AST (17-59) U/L ALT (21-72) U/L Alkaline Phosphatase (38-126) U/L Total Protein (6.3-8.3) g/dL Albumin (3.5-5.0) g/dL Globulin (2.2-3.9) gm/dL Albumin/Globulin Ratio (1.0-2.1) Laboratory Results - last 24 hr 10/09/17 10/09/17 10/10/17 17:50 23:37 05:06 WBC RBC Hgb Hct MCV MCH MCHC RDW Plt Count MPV Neut % (Auto) Lymph % (Auto) [place] % (Auto) Eos % (Auto) Baso % (Auto) Neut # (Auto) Lymph # (Auto) [place] # (Auto) Eos # (Auto) Baso # (Auto) Puncture Site pCO2 pO2 HCO3 ABG pH ABG Total CO2 ABG O2 Saturation ABG Base Excess ABG Hemoglobin ABG Carboxyhemoglobin POC ABG HHb (Measured) ABG Methemoglobin Jose Raul Test A-a O2 Difference Respiratory Index Hgb O2 Saturation Vent Mode Mechanical Rate FiO2 Tidal Volume PEEP Sodium Potassium Chloride Carbon Dioxide Anion Gap BUN Creatinine Est GFR ( Amer) Est GFR (Non-Af Amer) POC Glucose (mg/dL) 245 H 298 H 209 H Random Glucose Calcium Phosphorus Magnesium Total Bilirubin AST ALT Alkaline Phosphatase Total Protein Albumin Globulin Albumin/Globulin Ratio 10/10/17 10/10/17 10/10/17 05:29 06:06 06:07 WBC 9.3 RBC 2.60 L Hgb 8.0 L Hct 24.6 L MCV 94.6 H MCH 30.9 MCHC 32.6 L RDW 14.8 H Plt Count 248 MPV 8.5 Neut % (Auto) 80.9 H Lymph % (Auto) 12.7 L [place] % (Auto) 5.9 Eos % (Auto) 0.2 Baso % (Auto) 0.3 Neut # (Auto) 7.5 H Lymph # (Auto) 1.2 [place] # (Auto) 0.5 Eos # (Auto) 0.0 Baso # (Auto) 0.0 Puncture Site Rr pCO2 31 L pO2 75 L HCO3 23.8 ABG pH 7.46 H ABG Total CO2 23.0 ABG O2 Saturation 94.4 L ABG Base Excess -1.4 ABG Hemoglobin 8.3 L ABG Carboxyhemoglobin 0 L POC ABG HHb (Measured) 5.6 H ABG Methemoglobin 0.4 Jose Raul Test Pos A-a O2 Difference 243.0 Respiratory Index 3.2 Hgb O2 Saturation 94.0 L Vent Mode Prvc Mechanical Rate 14 FiO2 50.0 Tidal Volume 500 PEEP 5 Sodium 144 Potassium 4.1 Chloride 111 H Carbon Dioxide 23 Anion Gap 14 BUN 63 H Creatinine 1.3 Est GFR ( Amer) > 60 Est GFR (Non-Af Amer) 53 POC Glucose (mg/dL) Random Glucose 217 H Calcium 8.4 L Phosphorus 3.7 Magnesium 2.1 Total Bilirubin 0.8 AST 82 H D ALT 58 Alkaline Phosphatase 102 Total Protein 5.4 L Albumin 2.3 L Globulin 3.2 Albumin/Globulin Ratio 0.7 L 10/10/17 10/10/17 11:50 17:31 WBC RBC Hgb Hct MCV MCH MCHC RDW Plt Count MPV Neut % (Auto) Lymph % (Auto) [place] % (Auto) Eos % (Auto) Baso % (Auto) Neut # (Auto) Lymph # (Auto) [place] # (Auto) Eos # (Auto) Baso # (Auto) Puncture Site pCO2 pO2 HCO3 ABG pH ABG Total CO2 ABG O2 Saturation ABG Base Excess ABG Hemoglobin ABG Carboxyhemoglobin POC ABG HHb (Measured) ABG Methemoglobin Jose Raul Test A-a O2 Difference Respiratory Index Hgb O2 Saturation Vent Mode Mechanical Rate FiO2 Tidal Volume PEEP Sodium Potassium Chloride Carbon Dioxide Anion Gap BUN Creatinine Est GFR ( Amer) Est GFR (Non-Af Amer) POC Glucose (mg/dL) 285 H 253 H Random Glucose Calcium Phosphorus Magnesium Total Bilirubin AST ALT Alkaline Phosphatase Total Protein Albumin Globulin Albumin/Globulin Ratio Fingerstick Blood Sugar Results: 253 Critical Care Progress Note - Nutrition Nutrition: Nutrition Category Date Time Status NPO Diet [DIET] Diets 10/09/17 Breakfast Active
[2017-10-11] MEDS: (Novolin R) Insulin Human Regular 100 units/ml vial SC SCH ×4 (00:02→17:27)
[2017-10-11] MEDS: Piperacillin/Tazobact 3.375 GM in Sodium Chloride 100 ML IVPB SCH ×3 (04:00→19:35)
[2017-10-11 05:59] LABS: HEMOGLOBIN 8.3 g/dL (12.0-18.0); MEAN CELL VOLUME 96.3 fL (80.0-94.0); MEAN CORPUSCULAR HEMOGLOBIN 31.9 pg (27.0-31.0); MEAN CORPUSCULAR HGB CONC 33.2 g/dL (33.0-37.0); MEAN PLATELET VOLUME 8.4 fL (7.2-11.7); RBC 2.59 Mil/uL (4.40-5.90); RED CELL DISTRIBUTION WIDTH 15.1 % (11.5-14.5); WHITE BLOOD COUNT 9.3 K/uL (4.8-10.8)
[2017-10-11 06:24] LABS: ALB/GLOB RATIO 0.7 (1.0-2.1); ALBUMIN 2.3 g/dL (3.5-5.0); ALT/SGPT 75 U/L (21-72); AST/SGOT 78 U/L (17-59); BLOOD UREA NITROGEN 61 mg/dL (9-20); GFR AFRICAN-AMERICAN > 60; GFR NON-AFRICAN AMERICAN 53
--- NOTE | 2017-10-11 08:23 | RAD ---
Chest x-ray single frontal view History: Intubated. Comparison: 10/10/2017 Findings: Lines and tubes in stable position. Persistent prominent consolidative opacification in the mid to lower lung zones bilaterally. Biapical pleural thickening with upper lobe granulomatous changes. Enlarged ectatic aorta. Cardiomegaly. Degenerative changes in the spine and shoulders. Suggestion of inferior subluxation of the left humeral head. Impression: Lines and tubes in stable position. Persistent prominent consolidative opacification in the mid to lower lung zones bilaterally. Biapical pleural thickening with upper lobe granulomatous changes. Enlarged ectatic aorta. Cardiomegaly. Degenerative changes in the spine and shoulders. Suggestion of inferior subluxation of the left humeral head.
--- NOTE | 2017-10-11 09:39 | CP.PCM.PN ---
Subjective - Date & Time of Evaluation Date of Evaluation: 10/11/17 Time of Evaluation: 06:30 - Subjective Subjective: General Surgery Progress Note for Dr. Loya 82M seen and evaluated this AM. Remains intubated. Vent settings FiO2 50%, RR 14, TV 500. On tube feeds. Objective - Vital Signs/Intake and Output Vital Signs (last 24 hours): Temp Pulse Resp BP Pulse Ox 99.1 F 100 H 19 144/84 99 10/11/17 04:00 10/11/17 08:01 10/11/17 08:01 10/11/17 09:28 10/11/17 08:01 Intake and Output: 10/11/17 10/11/17 06:59 18:59 Intake Total 1020 110 Output Total 900 Balance 120 110 - Medications Medications: Current Medications Diltiazem HCl (Cardizem) 30 mg PO Q6 [facility] Last Admin: 10/11/17 05:30 Dose: 30 mg Furosemide (Lasix) 20 mg PO DAILY [facility] Last Admin: 10/11/17 09:28 Dose: 20 mg Piperacillin Sod/Tazobactam (Sod 3.375 gm/ Sodium Chloride) 100 mls @ 200 mls/ hr IVPB Q8H CHARLEEN PRN Reason: Protocol Last Admin: 10/11/17 04:00 Dose: 200 mls/hr Levetiracetam 500 mg/ Dextrose 105 mls @ 420 mls/hr IVPB Q12H CHARLEEN Last Admin: 10/11/17 00:01 Dose: 420 mls/hr Insulin Human Regular (Novolin R) 0 unit SC Q6 CHARLEEN PRN Reason: Protocol Last Admin: 10/11/17 06:00 Dose: 4 u Pantoprazole Sodium (Protonix Inj) 40 mg IVP DAILY [facility] Last Admin: 10/11/17 09:27 Dose: 40 mg Rosuvastatin Calcium (Crestor) 5 mg PO QPM CHARLEEN Last Admin: 10/10/17 18:23 Dose: 5 mg - Labs Labs: 10/11/17 05:53 10/11/17 05:54 PT 12.2 SECONDS (9.7-12.2) 10/08/17 23:46 INR 1.1 10/08/17 23:46 APTT 24 SECONDS (21-34) 10/08/17 23:46 - Constitutional Appears: No Acute Distress, Chronically Ill - Eye Exam Eye Exam: Normal appearance - ENT Exam ENT Exam: Mucous Membranes Moist - Respiratory Exam Respiratory Exam: NORMAL BREATHING PATTERN - GI/Abdominal Exam GI & Abdominal Exam: Soft - Skin Skin Exam: Dry, Intact, Warm Assessment and Plan - Assessment and Plan (Free Text) Assessment: 82M with resp failure Plan: Plan for OR Thursday AM for trach/peg Hold tube feeds past midnight Further recs per Dr. Vincenzo Diaz PGY3
--- NOTE | 2017-10-11 18:54 | CP.CCUPN ---
CCU Objective - Vital Signs / Intake & Output Vital Signs (Last 4 hours): Vital Signs Temp Pulse Resp BP Pulse Ox 10/11/17 18:01 98 H 26 H 124/68 97 10/11/17 18:00 112 H 26 H 97 10/11/17 17:01 105 H 25 H 131/72 10/11/17 17:00 110 H 27 H 10/11/17 16:01 107 H 25 H 132/82 99 10/11/17 16:00 99.6 F 100 H 15 98 10/11/17 15:19 103 H 25 H 121/69 100 10/11/17 15:18 102 H 25 H 99 10/11/17 15:00 97 H 44 H 99 Intake and Output (Last 8hrs): Intake & Output 10/11/17 10/11/17 10/11/17 06:59 14:59 22:59 Intake Total 700 540 320 Output Total 900 1400 Balance -200 540 -1080 Weight 209 lb 0.09 oz Intake: Intake, IV Amount 200 Right PICC 200 Tube Feeding 440 440 220 Other 60 100 100 Output: Urine 900 1400 Urine, Voided 900 1400 Other: # Bowel Movements 1 1 1 - Physical Exam Head: Positive for: Normocephalic Mouth: Positive for: Dry Respiratory/Chest: Positive for: Clear to Auscultation Cardiovascular: Positive for: Regular Rate and Rhythm, Normal S1, S2. Negative for: Murmurs Abdomen: Positive for: Normal Bowel Sounds. Negative for: Distention Upper Extremity: Negative for: Cyanosis, Edema Lower Extremity: Negative for: Edema Neurological: Negative for: GCS=15 Skin: Positive for: Rashes (herpes zoster infection noted, neck, chest) - Medications Active Medications: Active Medications Generic Name Dose Route Start Last Admin Trade Name Freq PRN Reason Stop Dose Admin Diltiazem HCl 30 mg 10/09/17 00:45 10/11/17 17:27 Cardizem PO 30 mg Q6 CHARLEEN Administration Furosemide 20 mg 10/09/17 10:00 10/11/17 09:28 Lasix PO 20 mg DAILY CHARLEEN Administration Piperacillin Sod/Tazobactam 100 mls @ 200 mls/hr 10/09/17 04:00 10/11/17 11: 44 Sod 3.375 gm/ Sodium Chloride IVPB 200 mls/hr Q8H CHARLEEN Administration Protocol Levetiracetam 500 mg/ Dextrose 105 mls @ 420 mls/hr 10/10/17 23:30 10/11/17 11:43 IVPB 420 mls/hr Q12H CHARLEEN Administration Insulin Human Regular 0 unit 10/09/17 06:00 10/11/17 17:27 Novolin R SC 3 u Q6 CHARLEEN Administration Protocol Pantoprazole Sodium 40 mg 10/09/17 10:00 10/11/17 09:27 Protonix Inj IVP 40 mg DAILY CHARLEEN Administration Rosuvastatin Calcium 5 mg 10/09/17 18:00 10/11/17 17:27 Crestor PO 5 mg QPM CHARLEEN Administration - Patient Studies Lab Studies: Microbiology Studies 10/08/17 23:45 S.aureus & Coag-Neg Staph PNA FISH - Final Blood-Thru Central Line Blood Culture - Preliminary Staphylococcus Aureus Gram Stain - Final 10/08/17 15:40 Blood Culture - Preliminary Blood-Thru Central Line Staphylococcus Aureus Gram Stain - Final Lab Studies 10/11/17 10/11/17 10/11/17 Range/Units 17:19 11:34 05:54 WBC (4.8-10.8) K/uL RBC (4.40-5.90) Mil/uL Hgb (12.0-18.0) g/dL Hct (35.0-51.0) % MCV (80.0-94.0) fL MCH (27.0-31.0) pg MCHC (33.0-37.0) g/dL RDW (11.5-14.5) % Plt Count (130-400) K/uL MPV (7.2-11.7) fL Sodium 147 (132-148) mmol/L Potassium 4.2 (3.6-5.2) mmol/L Chloride 113 H (98-107) mmol/L Carbon Dioxide 23 (22-30) mmol/L Anion Gap 15 (10-20) BUN 61 H (9-20) mg/dL Creatinine 1.3 (0.8-1.5) mg/dL Est GFR ( Amer) > 60 Est GFR (Non-Af Amer) 53 POC Glucose (mg/dL) 289 H 291 H (65-110) mg/dL Random Glucose 284 H (75-110) mg/dL Calcium 8.0 L (8.6-10.4) mg/dl Phosphorus 4.0 (2.5-4.5) mg/dL Magnesium 2.0 (1.6-2.3) mg/dL Total Bilirubin 0.8 (0.2-1.3) mg/dL AST 78 H (17-59) U/L ALT 75 H D (21-72) U/L Alkaline Phosphatase 132 H D (38-126) U/L Total Protein 5.5 L (6.3-8.3) g/dL Albumin 2.3 L (3.5-5.0) g/dL Globulin 3.2 (2.2-3.9) gm/dL Albumin/Globulin Ratio 0.7 L (1.0-2.1) 10/11/17 10/11/17 10/10/17 Range/Units 05:53 05:39 23:47 WBC 9.3 (4.8-10.8) K/uL RBC 2.59 L (4.40-5.90) Mil/uL Hgb 8.3 L (12.0-18.0) g/dL Hct 25.0 L (35.0-51.0) % MCV 96.3 H (80.0-94.0) fL MCH 31.9 H (27.0-31.0) pg MCHC 33.2 (33.0-37.0) g/dL RDW 15.1 H (11.5-14.5) % Plt Count 230 (130-400) K/uL MPV 8.4 (7.2-11.7) fL Sodium (132-148) mmol/L Potassium (3.6-5.2) mmol/L Chloride (98-107) mmol/L Carbon Dioxide (22-30) mmol/L Anion Gap (10-20) BUN (9-20) mg/dL Creatinine (0.8-1.5) mg/dL Est GFR ( Amer) Est GFR (Non-Af Amer) POC Glucose (mg/dL) 300 H 292 H (65-110) mg/dL Random Glucose (75-110) mg/dL Calcium (8.6-10.4) mg/dl Phosphorus (2.5-4.5) mg/dL Magnesium (1.6-2.3) mg/dL Total Bilirubin (0.2-1.3) mg/dL AST (17-59) U/L ALT (21-72) U/L Alkaline Phosphatase (38-126) U/L Total Protein (6.3-8.3) g/dL Albumin (3.5-5.0) g/dL Globulin (2.2-3.9) gm/dL Albumin/Globulin Ratio (1.0-2.1) Laboratory Results - last 24 hr 10/10/17 10/11/17 10/11/17 23:47 05:39 05:53 WBC 9.3 RBC 2.59 L Hgb 8.3 L Hct 25.0 L MCV 96.3 H MCH 31.9 H MCHC 33.2 RDW 15.1 H Plt Count 230 MPV 8.4 Sodium Potassium Chloride Carbon Dioxide Anion Gap BUN Creatinine Est GFR ( Amer) Est GFR (Non-Af Amer) POC Glucose (mg/dL) 292 H 300 H Random Glucose Calcium Phosphorus Magnesium Total Bilirubin AST ALT Alkaline Phosphatase Total Protein Albumin Globulin Albumin/Globulin Ratio 10/11/17 10/11/17 10/11/17 05:54 11:34 17:19 WBC RBC Hgb Hct MCV MCH MCHC RDW Plt Count MPV Sodium 147 Potassium 4.2 Chloride 113 H Carbon Dioxide 23 Anion Gap 15 BUN 61 H Creatinine 1.3 Est GFR ( Amer) > 60 Est GFR (Non-Af Amer) 53 POC Glucose (mg/dL) 291 H 289 H Random Glucose 284 H Calcium 8.0 L Phosphorus 4.0 Magnesium 2.0 Total Bilirubin 0.8 AST 78 H ALT 75 H D Alkaline Phosphatase 132 H D Total Protein 5.5 L Albumin 2.3 L Globulin 3.2 Albumin/Globulin Ratio 0.7 L Fingerstick Blood Sugar Results: 289 Critical Care Progress Note - Nutrition Nutrition: Nutrition Category Date Time Status NPO Diet [DIET] Diets 10/09/17 Breakfast Active NPO Diet [DIET] Diets 10/12/17 Breakfast Active
--- NOTE | 2017-10-11 20:51 | CARD ---
APPROVED REPORT Date of service: 10/10/2017 EXAM: Two-dimensional and M-mode echocardiogram with Doppler and color Doppler. Other Information Quality : FairRhythm : NSR INDICATION CVA/TIA Atrial Fibrillation Pre-Op limited study,PT ON VENT RISK FACTORS Hypertension Hyperlipidemia Mitral Valve MV E [id number]/sMV A Vpmzbzem26.4cm/sE/A ratio2.5 TDI E/Lateral E'0.0E/Medial E'0.0 Tricuspid Valve TR Peak [id number] Peak [id number] LEFT VENTRICLE The left ventricle is normal size. There is normal left ventricular wall thickness. Left ventricle systolic function is normal. The Ejection Fraction is 65-70%. There is normal LV segmental wall motion. The left ventricular diastolic function is normal. No left ventricle thrombus noted on this study. RIGHT VENTRICLE The right ventricle is mildly dilated. There is normal right ventricular wall thickness. The right ventricular systolic function is normal. ATRIA The left atrium is mildly dilated. The right atrium is mildly dilated. The interatrial septum is intact with no evidence for an atrial septal defect. AORTIC VALVE The aortic valve is calcified but opens well. There is mild to moderate aortic regurgitation. There is no aortic valvular stenosis. There is no aortic valvular vegetation. MITRAL VALVE The mitral valve is normal in structure. There is no evidence of mitral valve prolapse. There is no mitral valve stenosis. Mitral regurgitation is mild to moderate. TRICUSPID VALVE The tricuspid valve is normal in structure. There is mild tricuspid regurgitation. Right ventricular systolic pressure is estimated at 40-50 mmHg. There is mild-moderate pulmonary hypertension. PULMONIC VALVE The pulmonic valve is not well visualized. GREAT VESSELS The aortic root is normal in size. PERICARDIAL EFFUSION There is no significant pericardial effusion. <Conclusion> Left ventricle systolic function is normal. The Ejection Fraction is 65-70%. There is mild to moderate aortic regurgitation. Mitral regurgitation is mild to moderate. There is mild tricuspid regurgitation. There is mild-moderate pulmonary hypertension. The pulmonic valve is not well visualized.
--- NOTE | 2017-10-11 21:27 | PN ---
DATE: 10/11/2017 SUBJECTIVE: The patient is not responsive on the ventilator. PHYSICAL EXAMINATION: VITAL SIGNS: Blood pressure 121/69, heart rate 102, respirations 25, temperature 99. HEENT: Bilateral craniotomy scars are noted. CHEST: Minimal rhonchi. HEART: S1, S2 regular. ABDOMEN: Soft. EXTREMITIES: 1+ pitting edema. LABORATORY DATA: SMA-7: Sodium 146, potassium 4.2, chloride 115, CO2 of 23, glucose 284, BUN 61, creatinine 1.3. Hemoglobin and hematocrit 8.3 and 25, white count and platelet count are within normal limit. ASSESSMENT: 1. Bilateral subdural hematoma, status bilateral craniotomy. 2. Chronic atrial fibrillation. 3. A 9-mm right frontal lobe hemorrhage with multiple subacute chronic bilateral ischemic infarcts. 4. Respiratory failure. 5. Prerenal azotemia. 6. Staphylococcus aureus bacteremia. RECOMMENDATIONS: Continue Cardizem 30 mg every 6 hours, Crestor 5 mg once daily, Lasix 20 mg once a day via nasogastric tube, IV Zosyn 3.375 every 8 hours. Awaiting official echo report; however, the patient is a very poor candidate for any intervention even if this is minor. Marquis Dawkins MD
[2017-10-12] MEDS: Lactated Ringer's 1,000 ML IV SCH ×2 (00:20→11:10)
[2017-10-12] MEDS: (Novolin R) Insulin Human Regular 100 units/ml vial SC SCH ×4 (00:20→18:10)
[2017-10-12] MEDS: Piperacillin/Tazobact 3.375 GM in Sodium Chloride 100 ML IVPB SCH (04:00)
[2017-10-12 04:39] LABS: ABG ALLEN TEST POS; ARTERIAL BLOOD GAS HCO3 24.4 mmol/L (21-28); ARTERIAL BLOOD GAS O2 SAT 95.6 % (95-98); ARTERIAL BLOOD GAS PCO2 35 mm/Hg (35-45); ARTERIAL BLOOD GAS PH 7.43 (7.35-7.45); ARTERIAL BLOOD GAS PO2 92 mm/Hg (80-100); ARTERIAL BLOOD GAS TCO2 24.3 mmol/L (22-28)
[2017-10-12 06:38] LABS: BASO % 0.2 % (0.0-2.0); EOS % 0.3 % (0.0-4.0); HEMOGLOBIN 8.4 g/dL (12.0-18.0); LYMPH # 0.7 K/uL (1.0-4.3); LYMPH % 6.8 % (20.0-40.0); MEAN CELL VOLUME 97.1 fL (80.0-94.0); MEAN PLATELET VOLUME 8.3 fL (7.2-11.7); MONO # 0.4 K/uL (0.0-0.8); MONO % 3.7 % (0.0-10.0); NRBC % 0.6 % (0.0-2.0); PLATELET COUNT 231 K/uL (130-400); RBC 2.62 Mil/uL (4.40-5.90); RED CELL DISTRIBUTION WIDTH 15.2 % (11.5-14.5); WHITE BLOOD COUNT 10.1 K/uL (4.8-10.8)
[2017-10-12 06:45] LABS: ALB/GLOB RATIO 0.7 (1.0-2.1); ALBUMIN 2.4 g/dL (3.5-5.0); ALT/SGPT 78 U/L (21-72); AST/SGOT 65 U/L (17-59); BLOOD UREA NITROGEN 59 mg/dL (9-20); GFR AFRICAN-AMERICAN > 60; GFR NON-AFRICAN AMERICAN 53
[2017-10-12 07:05] LABS: INR 1.3; PROTHROMBIN TIME 14.6 SECONDS (9.7-12.2)
[2017-10-12] MEDS ORDERED: Bupivacaine 0.25% 20 ML INJ IJ ONE (07:35)
[2017-10-12] MEDS ORDERED: Lidocaine/Epinephrine 1% 1:100000 10 ML IJ ONE (07:36)
[2017-10-12] MEDS ORDERED: ceFAZolin IV 2 gm in Dextrose 2 GM/50 ML BAG IVPB ONE (07:52)
[2017-10-12 08:30] LABS: BANDS 4 % (0-2); LYMPHOCYTE 8 % (20-40); METAMYELOCYTE 1 % (0-0); MONOCYTE 2 % (0-10); MYELOCYTE 1 % (0-0); NEUTROPHIL 84 % (50-75); PLATELET ESTIMATE NORMAL (NORMAL); TOTAL CELLS COUNTED 100
[2017-10-12 08:31] LABS: ANISOCYTOSIS SLIGHT
--- NOTE | 2017-10-12 09:25 | PCM.SURG1 ---
Surgeon's Initial Post Op Note - Surgeon's Notes Surgeon: Vincenzo Autoclave Operator: Cecilia PGY4, Katie PGY2, Charisse RIZVI Type of Anesthesia: General Endo, Local Pre-Operative Diagnosis: Respiratory failure Operative Findings: Normal neck and Upper GI anatomy Post-Operative Diagnosis: same Operation Performed: Percutaneous tracheostomy and PEG Specimen/Specimens Removed: none Estimated Blood Loss: EBL {In ML}: 10 Blood Products Given: N/A Drains Used: Ostomy Device (PEG) Post-Op Condition: Poor Date of Surgery/Procedure: 10/12/17 Time of Surgery/Procedure: 09:25
[2017-10-12] MEDS ORDERED: Vancomycin 1 gm/NS 200 ml 1 GM/200 ML BAG IVPB ONE (11:30)
--- NOTE | 2017-10-12 12:52 | RAD ---
Date of service: 10/12/2017 PROCEDURE: CHEST RADIOGRAPH, 1 VIEW HISTORY: vent COMPARISON: Chest radiograph dated 10/11/2017. FINDINGS: LUNGS: Pulmonary vascular congestion. Bibasilar atelectasis. PLEURA: Right larger than left small bilateral pleural effusions. No appreciable pneumothorax. CARDIOVASCULAR: Atherosclerotic aortic calcifications. Cardiomediastinal silhouette stably enlarged. OSSEOUS STRUCTURES: Stable inferior subluxation of the left humeral head. Unchanged. VISUALIZED UPPER ABDOMEN: Normal. OTHER FINDINGS: Endotracheal and enteric tubes, unchanged. Right upper extremity PICC, unchanged. IMPRESSION: Stable tubes and lines. No significant change in pulmonary vascular congestion, small bilateral pleural effusions and bibasilar atelectasis/ consolidative changes.
--- NOTE | 2017-10-12 12:58 | RAD ---
Date of service: 10/12/2017 HISTORY: s/p trach COMPARISON: 10/12/2017 at 7:06 a.m. FINDINGS: LUNGS: No definite infiltrate. PLEURA: Small bilateral pleural effusion, unchanged. No pneumothorax. CARDIOVASCULAR: Normal heart size. Tracheostomy replaces and endotracheal tube. Nasogastric tube removed. Right PICC catheter unchanged. OSSEOUS STRUCTURES: No significant abnormalities. VISUALIZED UPPER ABDOMEN: Normal. OTHER FINDINGS: None. IMPRESSION: Small bilateral pleural effusion. Endotracheal tube replaced by tracheostomy. Nasogastric tube removed.
--- NOTE | 2017-10-12 16:02 | PCM.PROC ---
Procedures Attestation:: I certify that I have explained the specified Operation(s) or Procedure(s), risks, benefits and reasonable alternatives to the Patient and/or other person responsible. The opportunity was given to ask questions and all questions answered - Central Line Placement Right Internal Jugular Triple Lumen Catheter Aseptic technique was employed throughout the procedure: Hand Hygiene done prior to procedure, Full sterile barriers (mask, hair cover, sterile gown, sterile gloves), Full body sterile drape, Chloraprep Antiseptic: 30 second prep for IJ or SC sites Pt. Placed on Pulse Ox Monitor: Yes Central Line Prep: Chlorhexidine-Alcohol Combination Local Anesthesia Used: Lidocaine 1% Ultrasound Used for Placement: Yes Central Line Lumen Inserted: triple Central Line Length: 16 cm Post Procedure: Sutured in Place, Good Blood Return, All Ports Aspirated, Flushed, Capped, Sterile Dressing Applied Secured by: Suture Post procedure dressing: Chlorhexidine disc (Biopatch) Post Procedure X-Ray: Yes Patient Tolerated Procedure: Well, No Complications Immediate Complications: None
--- NOTE | 2017-10-12 16:54 | RAD ---
Date of service: 10/12/2017 HISTORY: central line COMPARISON: Chest radiograph performed approximately 5 hours prior. FINDINGS: LUNGS: Pulmonary vascular congestion. Bibasilar atelectasis. PLEURA: Bilateral pleural effusions, not significantly changed. No pneumothorax apparent. CARDIOVASCULAR: Atherosclerotic aortic calcifications. Cardiomediastinal silhouette unchanged. OSSEOUS STRUCTURES: Unchanged. VISUALIZED UPPER ABDOMEN: Normal. OTHER FINDINGS: Tracheostomy, unchanged. Right upper extremity PICC removed. New right-sided catheter with catheter tip in unclear location IMPRESSION: Removal of right upper extremity PICC. New right-sided catheter with tip in an unclear location. The tip appears to traverse more medially than the expected region of the superior vena cava. No appreciable pneumothorax. No significant change in pulmonary vascular congestion or bilateral pleural effusions.
--- NOTE | 2017-10-12 18:35 | CP.CCUPN ---
CCU Subjective - Physician Review Subjective (Free Text): 10/09/17 17:16 82 yo M w/ PMHx of A fib, HTN, CVA, HLD, DM, SH s/p craniotomy evac, with acute respiratory failure on vent. Admitted to ICU for monitoring pending trach and PEG. Pt trached and Peg(10/12), R IJ(10/12) ROS unobtainable, pt on vent. Herpes Zoster infection noted 10/12/17 18:33 CCU Objective - Vital Signs / Intake & Output Vital Signs (Last 4 hours): Vital Signs Temp Pulse Resp BP Pulse Ox 10/12/17 17:01 120 H 25 H 140/89 98 10/12/17 17:00 110 H 25 H 98 10/12/17 16:32 102 H 16 156/91 H 97 10/12/17 16:01 108 H 25 H 99 10/12/17 16:00 98.7 F 119 H 24 10/12/17 15:01 106 H 18 143/85 10/12/17 15:00 111 H 24 Intake and Output (Last 8hrs): Intake & Output 10/12/17 10/12/17 10/12/17 06:59 14:59 22:59 Intake Total 705 175 0 Output Total 600 Balance 105 175 0 Weight 196 lb 3.382 oz Intake: IV 100 Intake, IV Amount 550 75 Right Distal Port PICC 550 75 Oral 100 0 0 Tube Feeding 55 Output: Urine 600 Condom 600 Other: # Bowel Movements 1 - Physical Exam Physical Exam Limitations: Positive for: Altered Mental Status Head: Positive for: Normocephalic, Other (jose noted on right) Mouth: Positive for: Dry Neck: Positive for: Other (vesicles left) Respiratory/Chest: Positive for: Clear to Auscultation, Other (vent). Negative for: Respiratory Distress, Tachypneic Cardiovascular: Positive for: Regular Rate and Rhythm, Normal S1, S2. Negative for: Murmurs Abdomen: Positive for: Normal Bowel Sounds, Other (PEG). Negative for: Distention Upper Extremity: Negative for: Cyanosis, Edema Lower Extremity: Negative for: Edema Neurological: Negative for: GCS=15 Skin: Positive for: Rashes (herpes zoster infection noted, neck, chest) - Medications Active Medications: Active Medications Generic Name Dose Route Start Last Admin Trade Name Freq PRN Reason Stop Dose Admin Diltiazem HCl 30 mg 10/09/17 00:45 10/12/17 18:09 Cardizem PO 30 mg Q6 CHALREEN Administration Furosemide 20 mg 10/09/17 10:00 10/12/17 10:00 Lasix PO Not Given DAILY CHARLEEN Levetiracetam 500 mg/ Dextrose 105 mls @ 420 mls/hr 10/10/17 23:30 10/12/17 10:35 IVPB 420 mls/hr Q12H CHARLEEN Administration Lactated Ringer's 1,000 mls @ 75 mls/hr 10/11/17 23:45 10/12/17 11:10 Lactated Ringer's IV 75 mls/hr .[id number] CHARLEEN Administration Insulin Human Regular 0 unit 10/09/17 06:00 10/12/17 18:10 Novolin R SC 3 u Q6 CHARLEEN Administration Protocol Pantoprazole Sodium 40 mg 10/09/17 10:00 10/12/17 10:00 Protonix Inj IVP 40 mg DAILY CHARLEEN Administration Rosuvastatin Calcium 5 mg 10/09/17 18:00 10/12/17 18:09 Crestor PO 5 mg QPM CHARLEEN Administration - Patient Studies Lab Studies: Microbiology Studies 10/08/17 23:45 S.aureus & Coag-Neg Staph PNA FISH - Final Blood-Thru Central Line Blood Culture - Final Staphylococcus Aureus Gram Stain - Final 10/08/17 15:40 Blood Culture - Final Blood-Thru Central Line Staphylococcus Aureus Gram Stain - Final Lab Studies 10/12/17 10/12/17 10/12/17 Range/Units 11:46 06:24 06:24 WBC (4.8-10.8) K/uL RBC (4.40-5.90) Mil/uL Hgb (12.0-18.0) g/dL Hct (35.0-51.0) % MCV (80.0-94.0) fL MCH (27.0-31.0) pg MCHC (33.0-37.0) g/dL RDW (11.5-14.5) % Plt Count (130-400) K/uL MPV (7.2-11.7) fL Neut % (Auto) (50.0-75.0) % Lymph % (Auto) (20.0-40.0) % Cecil % (Auto) (0.0-10.0) % Eos % (Auto) (0.0-4.0) % Baso % (Auto) (0.0-2.0) % Neut # (Auto) (1.8-7.0) K/uL Lymph # (Auto) (1.0-4.3) K/uL Cecil # (Auto) (0.0-0.8) K/uL Eos # (Auto) (0.0-0.7) K/uL Baso # (Auto) (0.0-0.2) K/uL Neutrophils % (Manual) (50-75) % Band Neutrophils % (0-2) % Lymphocytes % (Manual) (20-40) % Monocytes % (Manual) (0-10) % Metamyelocytes % (0-0) % Myelocytes % (0-0) % Platelet Estimate (NORMAL) Basophilic Stippling Anisocytosis (manual) PT 14.6 H (9.7-12.2) SECONDS INR 1.3 APTT 31 (21-34) SECONDS Puncture Site pCO2 (35-45) mm/Hg pO2 (80-100) mm/Hg HCO3 (21-28) mmol/L ABG pH (7.35-7.45) ABG Total CO2 (22-28) mmol/L ABG O2 Saturation (95-98) % ABG Base Excess (-2.0-3.0) mmol/L ABG Hemoglobin (11.7-17.4) g/dL ABG Carboxyhemoglobin (0.5-1.5) % POC ABG HHb (Measured) (0.0-5.0) % ABG Methemoglobin (0.0-3.0) % Jose Raul Test A-a O2 Difference mm/Hg Respiratory Index Hgb O2 Saturation (95.0-98.0) % Vent Mode Mechanical Rate FiO2 % Tidal Volume PEEP Sodium 148 (132-148) mmol/L Potassium 4.1 (3.6-5.2) mmol/L Chloride 113 H (98-107) mmol/L Carbon Dioxide 27 (22-30) mmol/L Anion Gap 13 (10-20) BUN 59 H (9-20) mg/dL Creatinine 1.3 (0.8-1.5) mg/dL Est GFR ( Amer) > 60 Est GFR (Non-Af Amer) 53 POC Glucose (mg/dL) 274 H (65-110) mg/dL Random Glucose 266 H (75-110) mg/dL Calcium 8.0 L (8.6-10.4) mg/dl Phosphorus 4.1 (2.5-4.5) mg/dL Magnesium 2.0 (1.6-2.3) mg/dL Total Bilirubin 0.9 (0.2-1.3) mg/dL AST 65 H (17-59) U/L ALT 78 H (21-72) U/L Alkaline Phosphatase 113 (38-126) U/L Total Protein 5.7 L (6.3-8.3) g/dL Albumin 2.4 L (3.5-5.0) g/dL Globulin 3.3 (2.2-3.9) gm/dL Albumin/Globulin Ratio 0.7 L (1.0-2.1) 10/12/17 10/12/17 10/12/17 Range/Units 06:24 05:16 04:25 WBC 10.1 (4.8-10.8) K/uL RBC 2.62 L (4.40-5.90) Mil/uL Hgb 8.4 L (12.0-18.0) g/dL Hct 25.4 L (35.0-51.0) % MCV 97.1 H (80.0-94.0) fL MCH 32.0 H (27.0-31.0) pg MCHC 33.0 (33.0-37.0) g/dL RDW 15.2 H (11.5-14.5) % Plt Count 231 (130-400) K/uL MPV 8.3 (7.2-11.7) fL Neut % (Auto) 89.0 H (50.0-75.0) % Lymph % (Auto) 6.8 L (20.0-40.0) % Cecil % (Auto) 3.7 (0.0-10.0) % Eos % (Auto) 0.3 (0.0-4.0) % Baso % (Auto) 0.2 (0.0-2.0) % Neut # (Auto) 9.0 H (1.8-7.0) K/uL Lymph # (Auto) 0.7 L (1.0-4.3) K/uL Cecil # (Auto) 0.4 (0.0-0.8) K/uL Eos # (Auto) 0.0 (0.0-0.7) K/uL Baso # (Auto) 0.0 (0.0-0.2) K/uL Neutrophils % (Manual) 84 H (50-75) % Band Neutrophils % 4 H (0-2) % Lymphocytes % (Manual) 8 L (20-40) % Monocytes % (Manual) 2 (0-10) % Metamyelocytes % 1 H (0-0) % Myelocytes % 1 H (0-0) % Platelet Estimate Normal (NORMAL) Basophilic Stippling Slight Anisocytosis (manual) Slight PT (9.7-12.2) SECONDS INR APTT (21-34) SECONDS Puncture Site Rr pCO2 35 (35-45) mm/Hg pO2 92 (80-100) mm/Hg HCO3 24.4 (21-28) mmol/L ABG pH 7.43 (7.35-7.45) ABG Total CO2 24.3 (22-28) mmol/L ABG O2 Saturation 95.6 (95-98) % ABG Base Excess -0.6 (-2.0-3.0) mmol/L ABG Hemoglobin 14.0 (11.7-17.4) g/dL ABG Carboxyhemoglobin 0 L (0.5-1.5) % POC ABG HHb (Measured) 4.4 (0.0-5.0) % ABG Methemoglobin 0.2 (0.0-3.0) % Jose Raul Test Pos A-a O2 Difference 221.0 mm/Hg Respiratory Index 2.4 Hgb O2 Saturation 95.4 (95.0-98.0) % Vent Mode Prvc Mechanical Rate 14 FiO2 50.0 % Tidal Volume 500 PEEP 5 Sodium (132-148) mmol/L Potassium (3.6-5.2) mmol/L Chloride (98-107) mmol/L Carbon Dioxide (22-30) mmol/L Anion Gap (10-20) BUN (9-20) mg/dL Creatinine (0.8-1.5) mg/dL Est GFR ( Amer) Est GFR (Non-Af Amer) POC Glucose (mg/dL) 297 H (65-110) mg/dL Random Glucose (75-110) mg/dL Calcium (8.6-10.4) mg/dl Phosphorus (2.5-4.5) mg/dL Magnesium (1.6-2.3) mg/dL Total Bilirubin (0.2-1.3) mg/dL AST (17-59) U/L ALT (21-72) U/L Alkaline Phosphatase (38-126) U/L Total Protein (6.3-8.3) g/dL Albumin (3.5-5.0) g/dL Globulin (2.2-3.9) gm/dL Albumin/Globulin Ratio (1.0-2.1) 10/11/17 Range/Units 23:54 WBC (4.8-10.8) K/uL RBC (4.40-5.90) Mil/uL Hgb (12.0-18.0) g/dL Hct (35.0-51.0) % MCV (80.0-94.0) fL MCH (27.0-31.0) pg MCHC (33.0-37.0) g/dL RDW (11.5-14.5) % Plt Count (130-400) K/uL MPV (7.2-11.7) fL Neut % (Auto) (50.0-75.0) % Lymph % (Auto) (20.0-40.0) % Cecil % (Auto) (0.0-10.0) % Eos % (Auto) (0.0-4.0) % Baso % (Auto) (0.0-2.0) % Neut # (Auto) (1.8-7.0) K/uL Lymph # (Auto) (1.0-4.3) K/uL Cecil # (Auto) (0.0-0.8) K/uL Eos # (Auto) (0.0-0.7) K/uL Baso # (Auto) (0.0-0.2) K/uL Neutrophils % (Manual) (50-75) % Band Neutrophils % (0-2) % Lymphocytes % (Manual) (20-40) % Monocytes % (Manual) (0-10) % Metamyelocytes % (0-0) % Myelocytes % (0-0) % Platelet Estimate (NORMAL) Basophilic Stippling Anisocytosis (manual) PT (9.7-12.2) SECONDS INR APTT (21-34) SECONDS Puncture Site pCO2 (35-45) mm/Hg pO2 (80-100) mm/Hg HCO3 (21-28) mmol/L ABG pH (7.35-7.45) ABG Total CO2 (22-28) mmol/L ABG O2 Saturation (95-98) % ABG Base Excess (-2.0-3.0) mmol/L ABG Hemoglobin (11.7-17.4) g/dL ABG Carboxyhemoglobin (0.5-1.5) % POC ABG HHb (Measured) (0.0-5.0) % ABG Methemoglobin (0.0-3.0) % Jose Raul Test A-a O2 Difference mm/Hg Respiratory Index Hgb O2 Saturation (95.0-98.0) % Vent Mode Mechanical Rate FiO2 % Tidal Volume PEEP Sodium (132-148) mmol/L Potassium (3.6-5.2) mmol/L Chloride (98-107) mmol/L Carbon Dioxide (22-30) mmol/L Anion Gap (10-20) BUN (9-20) mg/dL Creatinine (0.8-1.5) mg/dL Est GFR ( Amer) Est GFR (Non-Af Amer) POC Glucose (mg/dL) 330 H (65-110) mg/dL Random Glucose (75-110) mg/dL Calcium (8.6-10.4) mg/dl Phosphorus (2.5-4.5) mg/dL Magnesium (1.6-2.3) mg/dL Total Bilirubin (0.2-1.3) mg/dL AST (17-59) U/L ALT (21-72) U/L Alkaline Phosphatase (38-126) U/L Total Protein (6.3-8.3) g/dL Albumin (3.5-5.0) g/dL Globulin (2.2-3.9) gm/dL Albumin/Globulin Ratio (1.0-2.1) Laboratory Results - last 24 hr 10/11/17 10/12/17 10/12/17 23:54 04:25 05:16 WBC RBC Hgb Hct MCV MCH MCHC RDW Plt Count MPV Neut % (Auto) Lymph % (Auto) Cecil % (Auto) Eos % (Auto) Baso % (Auto) Neut # (Auto) Lymph # (Auto) Cecil # (Auto) Eos # (Auto) Baso # (Auto) Neutrophils % (Manual) Band Neutrophils % Lymphocytes % (Manual) Monocytes % (Manual) Metamyelocytes % Myelocytes % Platelet Estimate Basophilic Stippling Anisocytosis (manual) PT INR APTT Puncture Site Rr pCO2 35 pO2 92 HCO3 24.4 ABG pH 7.43 ABG Total CO2 24.3 ABG O2 Saturation 95.6 ABG Base Excess -0.6 ABG Hemoglobin 14.0 ABG Carboxyhemoglobin 0 L POC ABG HHb (Measured) 4.4 ABG Methemoglobin 0.2 Jose Raul Test Pos A-a O2 Difference 221.0 Respiratory Index 2.4 Hgb O2 Saturation 95.4 Vent Mode Prvc Mechanical Rate 14 FiO2 50.0 Tidal Volume 500 PEEP 5 Sodium Potassium Chloride Carbon Dioxide Anion Gap BUN Creatinine Est GFR ( Amer) Est GFR (Non-Af Amer) POC Glucose (mg/dL) 330 H 297 H Random Glucose Calcium Phosphorus Magnesium Total Bilirubin AST ALT Alkaline Phosphatase Total Protein Albumin Globulin Albumin/Globulin Ratio 10/12/17 10/12/17 10/12/17 06:24 06:24 06:24 WBC 10.1 RBC 2.62 L Hgb 8.4 L Hct 25.4 L MCV 97.1 H MCH 32.0 H MCHC 33.0 RDW 15.2 H Plt Count 231 MPV 8.3 Neut % (Auto) 89.0 H Lymph % (Auto) 6.8 L Cecil % (Auto) 3.7 Eos % (Auto) 0.3 Baso % (Auto) 0.2 Neut # (Auto) 9.0 H Lymph # (Auto) 0.7 L Cecil # (Auto) 0.4 Eos # (Auto) 0.0 Baso # (Auto) 0.0 Neutrophils % (Manual) 84 H Band Neutrophils % 4 H Lymphocytes % (Manual) 8 L Monocytes % (Manual) 2 Metamyelocytes % 1 H Myelocytes % 1 H Platelet Estimate Normal Basophilic Stippling Slight Anisocytosis (manual) Slight PT 14.6 H INR 1.3 APTT 31 Puncture Site pCO2 pO2 HCO3 ABG pH ABG Total CO2 ABG O2 Saturation ABG Base Excess ABG Hemoglobin ABG Carboxyhemoglobin POC ABG HHb (Measured) ABG Methemoglobin Jose Raul Test A-a O2 Difference Respiratory Index Hgb O2 Saturation Vent Mode Mechanical Rate FiO2 Tidal Volume PEEP Sodium 148 Potassium 4.1 Chloride 113 H Carbon Dioxide 27 Anion Gap 13 BUN 59 H Creatinine 1.3 Est GFR ( Amer) > 60 Est GFR (Non-Af Amer) 53 POC Glucose (mg/dL) Random Glucose 266 H Calcium 8.0 L Phosphorus 4.1 Magnesium 2.0 Total Bilirubin 0.9 AST 65 H ALT 78 H Alkaline Phosphatase 113 Total Protein 5.7 L Albumin 2.4 L Globulin 3.3 Albumin/Globulin Ratio 0.7 L 10/12/17 11:46 WBC RBC Hgb Hct MCV MCH MCHC RDW Plt Count MPV Neut % (Auto) Lymph % (Auto) Cecil % (Auto) Eos % (Auto) Baso % (Auto) Neut # (Auto) Lymph # (Auto) Cecil # (Auto) Eos # (Auto) Baso # (Auto) Neutrophils % (Manual) Band Neutrophils % Lymphocytes % (Manual) Monocytes % (Manual) Metamyelocytes % Myelocytes % Platelet Estimate Basophilic Stippling Anisocytosis (manual) PT INR APTT Puncture Site pCO2 pO2 HCO3 ABG pH ABG Total CO2 ABG O2 Saturation ABG Base Excess ABG Hemoglobin ABG Carboxyhemoglobin POC ABG HHb (Measured) ABG Methemoglobin Jose Raul Test A-a O2 Difference Respiratory Index Hgb O2 Saturation Vent Mode Mechanical Rate FiO2 Tidal Volume PEEP Sodium Potassium Chloride Carbon Dioxide Anion Gap BUN Creatinine Est GFR ( Amer) Est GFR (Non-Af Amer) POC Glucose (mg/dL) 274 H Random Glucose Calcium Phosphorus Magnesium Total Bilirubin AST ALT Alkaline Phosphatase Total Protein Albumin Globulin Albumin/Globulin Ratio Fingerstick Blood Sugar Results: 279 Review of Systems - Review of Systems Systems not reviewed;Unavailable: Altered Mental Status Critical Care Progress Note - Nutrition Nutrition: Nutrition Category Date Time Status NPO Diet [DIET] Diets 10/12/17 Breakfast Active Assessment/Plan - Assessment and Plan (Free Text) Assessment: 82 yo male admitted for trach and PEG 1. Trach and PEG(10/12) -Sx consult Dr. Vincenzo -resume feeds, glucerna goal 55/hr 2. A fib -Cardio consult Dr. Dawkins -echo WNL 3. HTN -cardizem 30mg PO q6 -lasix 20mg 4. HLD -rosuvastatin 5mg qpm 4. Leukocytosis -WBC 11.4 on admission -ID consult Dr. Wells Ppx -Protonix 40 -no AC due to SH - Date & Time Date: 10/12/17 Time: 18:44
[2017-10-12] MEDS ORDERED: Acetaminophen 650mg/20.3ml solution UD PO PRN (21:18)
--- NOTE | 2017-10-12 21:20 | OP ---
PROCEDURE DATE: 10/12/2017 PREOPERATIVE DIAGNOSES: 1. Ventilator dependent respiratory failure. 2. Intracranial hemorrhage, status post fall. 3. Dysphagia. 4. Unable to wean from the ventilator. POSTOPERATIVE DIAGNOSES: 1. Ventilator dependent respiratory failure. 2. Intracranial hemorrhage, status post fall. 3. Dysphagia. 4. Unable to wean from the ventilator. PROCEDURES DONE: 1. Percutaneous tracheostomy. 2. Bronchoscopy with suctioning. 3. Esophagogastroduodenoscopy. 4. Percutaneous gastrostomy tube placement. SURGEON: Jamshid Loya MD ASSISTANTS: Be Brooks DO; HAYLEY Keys; and Humberto Wilson DO, PGY-1 resident. ANESTHESIA: General endotracheal tube anesthesia. ESTIMATED BLOOD LOSS: Around 10 mL. DRAIN: None. PATHOLOGY: None. COMPLICATIONS: None. INTRAOPERATIVE FINDINGS: 1. The patient had moderate amount of secretion that was suctioned out from the upper respiratory tract as well as from the right mainstem bronchus, and left side appeared to be cleared without any secretions. 2. EGD was done and there was very good transillumination test as well as dimpling test during the procedure. DESCRIPTION OF PROCEDURE: On intraoperative steps, this is an 82-year-old male who was diagnosed with ventilator dependent respiratory failure and dysphagia due to intracranial hemorrhage and status post craniotomy. The patient's family was consented for the percutaneous tracheostomy and PEG placement. The patient was brought to the OR, placed supine on the operating room table. After induction of the anesthesia, the neck and the upper abdomen were prepped and draped in the usual sterile fashion. The first bronchoscopy was done by me, and suctioning of the mainstem bronchus as well as the right bronchus was done. In the left side, there was not much secretion. After that under bronchoscopy guideline, the anterior wall of the trachea was punctured. The dilator was placed and with the peritoneal dilatation technique using the Blue Rhino kit, the #8 tracheostomy tube was placed, and it was connected to the ventilator machine. There was good end tidal CO2. After that, the balloon was inflated, and the tracheostomy tube was secured to the skin. It was to the neck. Now, the EGD was done by me. After entering the stomach, the air was inflated, and the transillumination test was done. There was a really nice transillumination as well as dimpling test in the left upper quadrant just below the costal margin. Needle was placed. The guidewire was snared from the stomach up to the mouth, and the tube was connected to the guidewire. The tube was pulled back into the stomach. The guidewire was taken out through the left upper quadrant incision site. Again, the EGD was done to reconfirm. There was good transillumination test through the bowel. The tube was at 2 cm from the skin level. Now, the tube was secured to the skin with stitches. Dry sterile dressing was applied. The stomach was suctioned out. There was no apparent complication. The patient was extubated in the OR. The count of instruments and gauze was correct. There was no apparent complication. The patient was sent to the ICU for further care. Jamshid Loya MD
--- NOTE | 2017-10-12 21:41 | PN ---
DATE: 10/12/2017 FOLLOWUP SUBJECTIVE: The patient underwent tracheostomy and gastrostomy feeding tube insertion. No reported ventricular arrhythmia. He is hemodynamically stable and atrial fibrillation on the monitor. PHYSICAL EXAMINATION: VITAL SIGNS: Blood pressure 146/92, heart rate 102, temperature 98.5, respirations 24. HEENT: Bilateral craniotomy scars. CHEST: Diminished breath sounds bilaterally. HEART: S1 and S2 regular. ABDOMEN: Positive bowel sounds. EXTREMITIES: 1+ pitting edema. LABORATORY DATA: SMA-7: Sodium 148, potassium 4.1, chloride 115, CO2 of 27, glucose 266, BUN 59, creatinine 1.3. Hemoglobin and hematocrit 8.4 and 25.4, white count and platelet count are within normal limit. Echocardiogram study report revealed ejection fraction in the range of 65% to 70%. [id number] aortic insufficiency. ASSESSMENT: 1. Chronic atrial fibrillation. 2. Status post bilateral craniotomy for bilateral subdural hematoma. 3. Staphylococcus aureus bacteremia. RECOMMENDATIONS: Continue current Crestor and IV Protonix as well as IV levetiracetam 5 mg every 12 hours. Marquis Dawkins MD
[2017-10-13] MEDS: (Novolin R) Insulin Human Regular 100 units/ml vial SC SCH ×4 (00:20→18:49)
[2017-10-13] MEDS: Lactated Ringer's 1,000 ML IV SCH ×2 (02:08→18:50)
[2017-10-13 05:26] LABS: ABG ALLEN TEST POS; ARTERIAL BLOOD GAS HCO3 25.9 mmol/L (21-28); ARTERIAL BLOOD GAS HEMOGLOBIN 8.9 g/dL (11.7-17.4); ARTERIAL BLOOD GAS O2 SAT 95.6 % (95-98); ARTERIAL BLOOD GAS PCO2 33 mm/Hg (35-45); ARTERIAL BLOOD GAS PH 7.48 (7.35-7.45); ARTERIAL BLOOD GAS PO2 83 mm/Hg (80-100); ARTERIAL BLOOD GAS TCO2 25.6 mmol/L (22-28)
[2017-10-13 06:41] LABS: ALB/GLOB RATIO 0.7 (1.0-2.1); ALBUMIN 2.3 g/dL (3.5-5.0); ALT/SGPT 55 U/L (21-72); AST/SGOT 48 U/L (17-59); BLOOD UREA NITROGEN 51 mg/dL (9-20); CALCIUM 7.9 mg/dl (8.6-10.4); GFR AFRICAN-AMERICAN > 60; GFR NON-AFRICAN AMERICAN > 60
--- NOTE | 2017-10-13 06:46 | CP.PCM.PN ---
Subjective - Date & Time of Evaluation Date of Evaluation: 10/13/17 Time of Evaluation: 06:30 - Subjective Subjective: General Surgery Note for Dr. Loya Patient seen and examined at bedside. No acute event overnight. Patient is s/p Percutaneous tracheostomy and PEG placement POD#1. He is intubated and on mechanical ventillation PRVC (500, 5, 14, 40%). Patient does not respond to verbal, tactile or noxious stimuli. ROS unobtainable. ICU started tube feeds yesterday. Objective - Vital Signs/Intake and Output Vital Signs (last 24 hours): Temp Pulse Resp BP Pulse Ox 98.8 F 100 H 18 146/85 97 10/13/17 04:00 10/13/17 05:00 10/13/17 05:00 10/13/17 05:17 10/13/17 05:00 Intake and Output: 10/12/17 10/13/17 18:59 06:59 Intake Total 175 1540 Output Total 600 Balance 175 940 - Medications Medications: Current Medications Acetaminophen (Tylenol 650mg/20.3ml Solution Ud) 650 mg PO Q6 PRN PRN Reason: fever 100.4F and above Last Admin: 10/12/17 21:54 Dose: 650 mg Diltiazem HCl (Cardizem) 30 mg PO Q6 CHARLEEN Last Admin: 10/13/17 05:33 Dose: 30 mg Furosemide (Lasix) 20 mg PO DAILY CHARLEEN Last Admin: 10/12/17 10:00 Dose: Not Given Levetiracetam 500 mg/ Dextrose 105 mls @ 420 mls/hr IVPB Q12H CHARLEEN Last Admin: 10/12/17 22:48 Dose: 420 mls/hr Lactated Ringer's (Lactated Ringer's) 1,000 mls @ 75 mls/hr IV .[id number] CHARLEEN Last Admin: 10/13/17 02:08 Dose: 75 mls/hr Nafcillin Sodium 2 gm/ Sodium (Chloride) 250 mls @ 250 mls/hr IVPB Q6H CHARLEEN PRN Reason: Protocol Last Admin: 10/13/17 03:20 Dose: 250 mls/hr Insulin Human Regular (Novolin R) 0 unit SC Q6 CHARLEEN PRN Reason: Protocol Last Admin: 10/13/17 06:10 Dose: 3 u Pantoprazole Sodium (Protonix Inj) 40 mg IVP DAILY [facility] Last Admin: 10/12/17 10:00 Dose: 40 mg Rosuvastatin Calcium (Crestor) 5 mg PO QPM CHARLEEN Last Admin: 10/12/17 18:09 Dose: 5 mg - Labs Labs: 10/12/17 06:24 10/13/17 06:16 PT 14.6 SECONDS (9.7-12.2) H 10/12/17 06:24 INR 1.3 10/12/17 06:24 APTT 31 SECONDS (21-34) 10/12/17 06:24 - Constitutional Appears: No Acute Distress - Head Exam Head Exam: NORMOCEPHALIC Additional comments: laceration with Gering bilaterally - Eye Exam Pupil Exam: PERRL - ENT Exam ENT Exam: Mucous Membranes Moist Additional comments: ET tube in place - Neck Exam Additional comments: s/p tracheostomy right IJ TLC - Respiratory Exam Additional comments: intubeated and on mechanical ventilation - Cardiovascular Exam Cardiovascular Exam: Tachycardia, REGULAR RHYTHM - GI/Abdominal Exam GI & Abdominal Exam: Soft, Normal Bowel Sounds. absent: Distended, Firm, Guarding, Rebound Additional comments: PEG tube with tube feeds - Exam Additional comments: ren catheter - Extremities Exam Extremities Exam: Normal Capillary Refill - Neurological Exam Neurological Exam: Altered Additional comments: GCS 3T - Psychiatric Exam Psychiatric exam: Flat Affect - Skin Skin Exam: Dry, Warm Assessment and Plan - Assessment and Plan (Free Text) Assessment: 82M s/p Percutaneous tracheostomy and PEG placement POD#1 Plan: -May start tube feeds today -Tracheostomy suture removal POD#14 -Wean off vent -Check Residuals -Further recommendations as per Vincenzo Newman PGY2
[2017-10-13 07:07] LABS: BASO % 0.3 % (0.0-2.0); EOS % 0.3 % (0.0-4.0); HEMOGLOBIN 8.3 g/dL (12.0-18.0); LYMPH # 0.8 K/uL (1.0-4.3); LYMPH % 7.7 % (20.0-40.0); MEAN CELL VOLUME 96.3 fL (80.0-94.0); MEAN CORPUSCULAR HEMOGLOBIN 31.3 pg (27.0-31.0); MEAN CORPUSCULAR HGB CONC 32.5 g/dL (33.0-37.0); MEAN PLATELET VOLUME 8.6 fL (7.2-11.7); MONO # 0.4 K/uL (0.0-0.8); MONO % 3.9 % (0.0-10.0); NEUT # 9.3 K/uL (1.8-7.0); NEUT % 87.8 % (50.0-75.0); NRBC % 0.2 % (0.0-2.0); PLATELET COUNT 208 K/uL (130-400); RBC 2.64 Mil/uL (4.40-5.90); RED CELL DISTRIBUTION WIDTH 15.2 % (11.5-14.5); WHITE BLOOD COUNT 10.6 K/uL (4.8-10.8)
--- NOTE | 2017-10-13 07:13 | CARD ---
APPROVED REPORT Date of service: 10/09/2017 EKG Measurement Heart [id number] <Conclusion> Atrial fibrillation with rapid ventricular response with premature ventricular or aberrantly conducted complexes Low voltage QRS Nonspecific T wave abnormality Abnormal ECG
[2017-10-13 08:27] LABS: BANDS 1 % (0-2); LYMPHOCYTE 9 % (20-40); MONOCYTE 7 % (0-10); NEUTROPHIL 83 % (50-75); TOTAL CELLS COUNTED 100
[2017-10-13 08:28] LABS: ANISOCYTOSIS SLIGHT; PLATELET ESTIMATE NORMAL (NORMAL)
--- NOTE | 2017-10-13 10:44 | RAD ---
Date of service: 10/13/2017 HISTORY: trach COMPARISON: Outside 10/12/2017 FINDINGS: LUNGS: Shallow lung volumes as before. Bilateral pleural effusions with inferred compressive atelectatic changes. Concomitant infiltrates at both lung bases are also compatible with this appearance. Tracheostomy tube in place. PLEURA: Lateral pleural effusions that on the right appears to be layering more than before. Otherwise bilateral pleural effusions are believe similar. CARDIOVASCULAR: Mild cardiomegaly-similar. Central pulmonary venous congestion- possibly slightly decreased in the left lung. No change in the right Right internal jugular vein catheter tip in superior vena cava- as before. OSSEOUS STRUCTURES: Thoracic spondylosis. Bilateral shoulder arthrosis. VISUALIZED UPPER ABDOMEN: Normal. OTHER FINDINGS: None. IMPRESSION: Pulmonary venous congestion with bilateral pleural effusions. Pulmonary venous congestion the left lung appears less than before. Other changes/finding as above.
--- NOTE | 2017-10-13 12:54 | CP.PCM.CON ---
History of Present Illness - History of Present Illness History of Present Illness: dictated Past Patient History - Infectious Disease Hx of Infectious Diseases: None - Tetanus Immunizations Tetanus Immunization: Unknown - Past Medical History & Family History Past Medical History?: Yes - Past Social History Smoking Status: Never Smoked - CARDIAC Hx Atrial Fibrillation: Yes Hx Cardia Arrhythmia: Yes Hx Hypercholesterolemia: Yes Hx Hypertension: Yes - PULMONARY Hx Pneumonia: Yes - NEUROLOGICAL Hx Alzheimer's Disease: Yes Hx Dementia: Yes Hx Seizures: No - HEENT Hx HEENT Problems: No - RENAL Hx Chronic Kidney Disease: No - ENDOCRINE/METABOLIC Hx Diabetes Mellitus Type 1: Yes - HEMATOLOGICAL/ONCOLOGICAL Hx Human Immunodeficiency Virus (HIV): No - INTEGUMENTARY Hx Dermatological Problems: No - MUSCULOSKELETAL/RHEUMATOLOGICAL Hx Falls: Yes - GASTROINTESTINAL Hx Gastrointestinal Disorders: No Other/Comment: pt has oral gastric feeding tube on arrival to [place] - GENITOURINARY/GYNECOLOGICAL Hx Sexually Transmitted Disorders: No - PSYCHIATRIC Hx Substance Use: No - SURGICAL HISTORY Hx Surgeries: No Other/Comment: august 2017, bilat craniotomy abd surgery - ANESTHESIA Hx Anesthesia: Yes Hx Anesthesia Reactions: No Hx Malignant Hyperthermia: No Meds Allergies/Adverse Reactions: Allergies Allergy/AdvReac Type Severity Reaction Status Date / Time No Known Allergies Allergy Verified 10/08/17 23:18 - Medications Medications: Current Medications Acetaminophen (Tylenol 650mg/20.3ml Solution Ud) 650 mg PO Q6 PRN PRN Reason: fever 100.4F and above Last Admin: 10/12/17 21:54 Dose: 650 mg Diltiazem HCl (Cardizem) 30 mg PO Q6 [facility] Last Admin: 10/13/17 11:50 Dose: 30 mg Furosemide (Lasix) 20 mg PO DAILY [facility] Last Admin: 10/13/17 09:29 Dose: 20 mg Levetiracetam 500 mg/ Dextrose 105 mls @ 420 mls/hr IVPB Q12H [facility]LEEN Last Admin: 10/13/17 11:51 Dose: 420 mls/hr Lactated Ringer's (Lactated Ringer's) 1,000 mls @ 75 mls/hr IV .[id number] [facility] Last Admin: 10/13/17 02:08 Dose: 75 mls/hr Nafcillin Sodium 2 gm/ Sodium (Chloride) 250 mls @ 250 mls/hr IVPB Q6H CHARLEEN PRN Reason: Protocol Last Admin: 10/13/17 09:28 Dose: 250 mls/hr Insulin Human Regular (Novolin R) 0 unit SC Q6 CHARLEEN PRN Reason: Protocol Last Admin: 10/13/17 12:00 Dose: Not Given Pantoprazole Sodium (Protonix Inj) 40 mg IVP DAILY [facility] Last Admin: 10/13/17 09:29 Dose: 40 mg Rosuvastatin Calcium (Crestor) 5 mg PO QPM [facility] Last Admin: 10/12/17 18:09 Dose: 5 mg Results - Vital Signs Recent Vital Signs: Last Vital Signs Temp 98.8 F 10/13/17 04:00 Pulse 100 H 10/13/17 11:01 Resp 22 10/13/17 11:01 BP 124/80 10/13/17 11:01 Pulse Ox 95 10/13/17 11:01 - Labs Result Diagrams: 10/13/17 06:17 10/13/17 06:16 Labs: Laboratory Results - last 24 hr 10/12/17 10/12/17 10/13/17 17:47 23:40 05:15 WBC RBC Hgb Hct MCV MCH MCHC RDW Plt Count MPV Neut % (Auto) Lymph % (Auto) [place] % (Auto) Eos % (Auto) Baso % (Auto) Neut # (Auto) Lymph # (Auto) [place] # (Auto) Eos # (Auto) Baso # (Auto) Neutrophils % (Manual) Band Neutrophils % Lymphocytes % (Manual) Monocytes % (Manual) Platelet Estimate Anisocytosis (manual) Puncture Site Rr pCO2 33 L pO2 83 HCO3 25.9 ABG pH 7.48 H ABG Total CO2 25.6 ABG O2 Saturation 95.6 ABG Base Excess 1.3 ABG Hemoglobin 8.9 L ABG Carboxyhemoglobin 0.7 POC ABG HHb (Measured) 4.4 ABG Methemoglobin 0.1 Jose Raul Test Pos A-a O2 Difference 161.0 Respiratory Index 1.9 Hgb O2 Saturation 94.8 L Vent Mode Prvc Mechanical Rate 14 FiO2 40.0 Tidal Volume 500 PEEP 5 Sodium Potassium Chloride Carbon Dioxide Anion Gap BUN Creatinine Est GFR ( Amer) Est GFR (Non-Af Amer) POC Glucose (mg/dL) 279 H 262 H Random Glucose Calcium Phosphorus Magnesium Total Bilirubin AST ALT Alkaline Phosphatase Total Protein Albumin Globulin Albumin/Globulin Ratio 07/10/13/17 10/13/17 05:30 06:16 06:17 WBC 10.6 RBC 2.64 L Hgb 8.3 L Hct 25.5 L MCV 96.3 H MCH 31.3 H MCHC 32.5 L RDW 15.2 H Plt Count 208 MPV 8.6 Neut % (Auto) 87.8 H Lymph % (Auto) 7.7 L [place] % (Auto) 3.9 Eos % (Auto) 0.3 Baso % (Auto) 0.3 Neut # (Auto) 9.3 H Lymph # (Auto) 0.8 L [place] # (Auto) 0.4 Eos # (Auto) 0.0 Baso # (Auto) 0.0 Neutrophils % (Manual) 83 H Band Neutrophils % 1 Lymphocytes % (Manual) 9 L Monocytes % (Manual) 7 Platelet Estimate Normal Anisocytosis (manual) Slight Puncture Site pCO2 pO2 HCO3 ABG pH ABG Total CO2 ABG O2 Saturation ABG Base Excess ABG Hemoglobin ABG Carboxyhemoglobin POC ABG HHb (Measured) ABG Methemoglobin Jose Raul Test A-a O2 Difference Respiratory Index Hgb O2 Saturation Vent Mode Mechanical Rate FiO2 Tidal Volume PEEP Sodium 149 H Potassium 3.8 Chloride 114 H Carbon Dioxide 24 Anion Gap 14 BUN 51 H Creatinine 1.1 Est GFR ( Amer) > 60 Est GFR (Non-Af Amer) > 60 POC Glucose (mg/dL) 280 H Random Glucose 244 H Calcium 7.9 L Phosphorus 3.7 Magnesium 2.0 Total Bilirubin 1.9 H AST 48 ALT 55 Alkaline Phosphatase 95 Total Protein 5.6 L Albumin 2.3 L Globulin 3.4 Albumin/Globulin Ratio 0.7 L 10/13/17 11:36 WBC RBC Hgb Hct MCV MCH MCHC RDW Plt Count MPV Neut % (Auto) Lymph % (Auto) [place] % (Auto) Eos % (Auto) Baso % (Auto) Neut # (Auto) Lymph # (Auto) [place] # (Auto) Eos # (Auto) Baso # (Auto) Neutrophils % (Manual) Band Neutrophils % Lymphocytes % (Manual) Monocytes % (Manual) Platelet Estimate Anisocytosis (manual) Puncture Site pCO2 pO2 HCO3 ABG pH ABG Total CO2 ABG O2 Saturation ABG Base Excess ABG Hemoglobin ABG Carboxyhemoglobin POC ABG HHb (Measured) ABG Methemoglobin [place] Raul Test A-a O2 Difference Respiratory Index Hgb O2 Saturation Vent Mode Mechanical Rate FiO2 Tidal Volume PEEP Sodium Potassium Chloride Carbon Dioxide Anion Gap BUN Creatinine Est GFR ( Amer) Est GFR (Non-Af Amer) POC Glucose (mg/dL) 281 H Random Glucose Calcium Phosphorus Magnesium Total Bilirubin AST ALT Alkaline Phosphatase Total Protein Albumin Globulin Albumin/Globulin Ratio
--- NOTE | 2017-10-13 15:48 | CP.CCUPN ---
<Janeth Clayton - Last Filed: 10/13/17 15:45> CCU Subjective - Physician Review Subjective (Free Text): 82 yo M w/ PMHx of A fib, HTN, CVA, HLD, DM, SH s/p craniotomy evac, with acute respiratory failure on vent. Admitted to ICU for monitoring pending trach and PEG. Pt trached and Peg(10/12), R IJ(10/12) ROS unobtainable, pt on vent. Herpes Zoster infection noted. No acute events overnight. Craniotomystaples removed at bedside, no drainage/erythema noted, well healing. 10/13/17 15:45 CCU Objective - Vital Signs / Intake & Output Vital Signs (Last 4 hours): Vital Signs Temp Pulse Resp BP Pulse Ox 10/13/17 14:00 106 H 23 95 10/13/17 12:04 101 H 23 137/85 96 10/13/17 12:00 98.8 F 113 H 27 H 82 L Intake and Output (Last 8hrs): Intake & Output 10/13/17 10/13/17 10/13/17 06:59 14:59 22:59 Intake Total 1110 880 220 Output Total 450 0 0 Balance 660 880 220 Weight 202 lb 13.204 oz Intake: Intake, IV Amount 800 600 150 Right Distal Port PICC 800 600 150 Tube Feeding 250 280 70 Other 60 Output: Urine 450 0 0 Condom 450 0 0 Other: # Bowel Movements 0 0 0 - Physical Exam Head: Positive for: Normocephalic, Other (jose noted on right) Mouth: Positive for: Dry Neck: Positive for: Other (vesicles left) Respiratory/Chest: Positive for: Clear to Auscultation, Other (vent). Negative for: Respiratory Distress, Tachypneic Cardiovascular: Positive for: Regular Rate and Rhythm, Normal S1, S2. Negative for: Murmurs Abdomen: Positive for: Normal Bowel Sounds, Other (PEG). Negative for: Distention Upper Extremity: Negative for: Cyanosis, Edema Lower Extremity: Negative for: Edema Neurological: Negative for: GCS=15 Skin: Positive for: Rashes (herpes zoster infection noted, neck, chest) - Medications Active Medications: Active Medications Generic Name Dose Route Start Last Admin Trade Name Freq PRN Reason Stop Dose Admin Acetaminophen 650 mg 10/12/17 21:18 10/12/17 21:54 Tylenol 650mg/20.3ml Solution Ud PO 650 mg Q6 PRN Administration fever 100.4F and above Diltiazem HCl 30 mg 10/09/17 00:45 10/13/17 11:50 Cardizem PO 30 mg Q6 CHARLEEN Administration Furosemide 20 mg 10/09/17 10:00 10/13/17 09:29 Lasix PO 20 mg DAILY CHARLEEN Administration Levetiracetam 500 mg/ Dextrose 105 mls @ 420 mls/hr 10/10/17 23:30 10/13/17 11:51 IVPB 420 mls/hr Q12H CHARLEEN Administration Lactated Ringer's 1,000 mls @ 75 mls/hr 10/11/17 23:45 10/13/17 02:08 Lactated Ringer's IV 75 mls/hr .[id number] CHARLEEN Administration Nafcillin Sodium 2 gm/ Sodium 250 mls @ 250 mls/hr 10/12/17 22:00 10/13/17 09 :28 Chloride IVPB 250 mls/hr Q6H CHARLEEN Administration Protocol Insulin Human Regular 0 unit 10/09/17 06:00 10/13/17 12:00 Novolin R SC Not Given Q6 CHARLEEN Protocol Pantoprazole Sodium 40 mg 10/09/17 10:00 10/13/17 09:29 Protonix Inj IVP 40 mg DAILY CHARLEEN Administration Rosuvastatin Calcium 5 mg 10/09/17 18:00 10/12/17 18:09 Crestor PO 5 mg QPM CHARLEEN Administration - Patient Studies Lab Studies: Microbiology Studies 10/08/17 23:45 S.aureus & Coag-Neg Staph PNA FISH - Final Blood-Thru Central Line Blood Culture - Final Staphylococcus Aureus Gram Stain - Final 10/08/17 15:40 Blood Culture - Final Blood-Thru Central Line Staphylococcus Aureus Gram Stain - Final Lab Studies 10/13/17 10/13/17 10/13/17 Range/Units 11:36 06:17 06:16 WBC 10.6 (4.8-10.8) K/uL RBC 2.64 L (4.40-5.90) Mil/uL Hgb 8.3 L (12.0-18.0) g/dL Hct 25.5 L (35.0-51.0) % MCV 96.3 H (80.0-94.0) fL MCH 31.3 H (27.0-31.0) pg MCHC 32.5 L (33.0-37.0) g/dL RDW 15.2 H (11.5-14.5) % Plt Count 208 (130-400) K/uL MPV 8.6 (7.2-11.7) fL Neut % (Auto) 87.8 H (50.0-75.0) % Lymph % (Auto) 7.7 L (20.0-40.0) % Mcduffie % (Auto) 3.9 (0.0-10.0) % Eos % (Auto) 0.3 (0.0-4.0) % Baso % (Auto) 0.3 (0.0-2.0) % Neut # (Auto) 9.3 H (1.8-7.0) K/uL Lymph # (Auto) 0.8 L (1.0-4.3) K/uL [place]duffie # (Auto) 0.4 (0.0-0.8) K/uL Eos # (Auto) 0.0 (0.0-0.7) K/uL Baso # (Auto) 0.0 (0.0-0.2) K/uL Neutrophils % (Manual) 83 H (50-75) % Band Neutrophils % 1 (0-2) % Lymphocytes % (Manual) 9 L (20-40) % Monocytes % (Manual) 7 (0-10) % Platelet Estimate Normal (NORMAL) Anisocytosis (manual) Slight Puncture Site pCO2 (35-45) mm/Hg pO2 (80-100) mm/Hg HCO3 (21-28) mmol/L ABG pH (7.35-7.45) ABG Total CO2 (22-28) mmol/L ABG O2 Saturation (95-98) % ABG Base Excess (-2.0-3.0) mmol/L ABG Hemoglobin (11.7-17.4) g/dL ABG Carboxyhemoglobin (0.5-1.5) % POC ABG HHb (Measured) (0.0-5.0) % ABG Methemoglobin (0.0-3.0) % Jose Raul Test A-a O2 Difference mm/Hg Respiratory Index Hgb O2 Saturation (95.0-98.0) % Vent Mode Mechanical Rate FiO2 % Tidal Volume PEEP Sodium 149 H (132-148) mmol/L Potassium 3.8 (3.6-5.2) mmol/L Chloride 114 H (98-107) mmol/L Carbon Dioxide 24 (22-30) mmol/L Anion Gap 14 (10-20) BUN 51 H (9-20) mg/dL Creatinine 1.1 (0.8-1.5) mg/dL Est GFR ( Amer) > 60 Est GFR (Non-Af Amer) > 60 POC Glucose (mg/dL) 281 H (65-110) mg/dL Random Glucose 244 H (75-110) mg/dL Calcium 7.9 L (8.6-10.4) mg/dl Phosphorus 3.7 (2.5-4.5) mg/dL Magnesium 2.0 (1.6-2.3) mg/dL Total Bilirubin 1.9 H (0.2-1.3) mg/dL AST 48 (17-59) U/L ALT 55 (21-72) U/L Alkaline Phosphatase 95 (38-126) U/L Total Protein 5.6 L (6.3-8.3) g/dL Albumin 2.3 L (3.5-5.0) g/dL Globulin 3.4 (2.2-3.9) gm/dL Albumin/Globulin Ratio 0.7 L (1.0-2.1) 10/13/17 10/13/17 10/12/17 Range/Units 05:30 05:15 23:40 WBC (4.8-10.8) K/uL RBC (4.40-5.90) Mil/uL Hgb (12.0-18.0) g/dL Hct (35.0-51.0) % MCV (80.0-94.0) fL MCH (27.0-31.0) pg MCHC (33.0-37.0) g/dL RDW (11.5-14.5) % Plt Count (130-400) K/uL MPV (7.2-11.7) fL Neut % (Auto) (50.0-75.0) % Lymph % (Auto) (20.0-40.0) % [place]duffie % (Auto) (0.0-10.0) % Eos % (Auto) (0.0-4.0) % Baso % (Auto) (0.0-2.0) % Neut # (Auto) (1.8-7.0) K/uL Lymph # (Auto) (1.0-4.3) K/uL [place]duffie # (Auto) (0.0-0.8) K/uL Eos # (Auto) (0.0-0.7) K/uL Baso # (Auto) (0.0-0.2) K/uL Neutrophils % (Manual) (50-75) % Band Neutrophils % (0-2) % Lymphocytes % (Manual) (20-40) % Monocytes % (Manual) (0-10) % Platelet Estimate (NORMAL) Anisocytosis (manual) Puncture Site Rr pCO2 33 L (35-45) mm/Hg pO2 83 (80-100) mm/Hg HCO3 25.9 (21-28) mmol/L ABG pH 7.48 H (7.35-7.45) ABG Total CO2 25.6 (22-28) mmol/L ABG O2 Saturation 95.6 (95-98) % ABG Base Excess 1.3 (-2.0-3.0) mmol/L ABG Hemoglobin 8.9 L (11.7-17.4) g/dL ABG Carboxyhemoglobin 0.7 (0.5-1.5) % POC ABG HHb (Measured) 4.4 (0.0-5.0) % ABG Methemoglobin 0.1 (0.0-3.0) % Jose Raul Test Pos A-a O2 Difference 161.0 mm/Hg Respiratory Index 1.9 Hgb O2 Saturation 94.8 L (95.0-98.0) % Vent Mode Prvc Mechanical Rate 14 FiO2 40.0 % Tidal Volume 500 PEEP 5 Sodium (132-148) mmol/L Potassium (3.6-5.2) mmol/L Chloride (98-107) mmol/L Carbon Dioxide (22-30) mmol/L Anion Gap (10-20) BUN (9-20) mg/dL Creatinine (0.8-1.5) mg/dL Est GFR ( Amer) Est GFR (Non-Af Amer) POC Glucose (mg/dL) 280 H 262 H (65-110) mg/dL Random Glucose (75-110) mg/dL Calcium (8.6-10.4) mg/dl Phosphorus (2.5-4.5) mg/dL Magnesium (1.6-2.3) mg/dL Total Bilirubin (0.2-1.3) mg/dL AST (17-59) U/L ALT (21-72) U/L Alkaline Phosphatase (38-126) U/L Total Protein (6.3-8.3) g/dL Albumin (3.5-5.0) g/dL Globulin (2.2-3.9) gm/dL Albumin/Globulin Ratio (1.0-2.1) / Range/Units 17:47 WBC (4.8-10.8) K/uL RBC (4.40-5.90) Mil/uL Hgb (12.0-18.0) g/dL Hct (35.0-51.0) % MCV (80.0-94.0) fL MCH (27.0-31.0) pg MCHC (33.0-37.0) g/dL RDW (11.5-14.5) % Plt Count (130-400) K/uL MPV (7.2-11.7) fL Neut % (Auto) (50.0-75.0) % Lymph % (Auto) (20.0-40.0) % [place]duffie % (Auto) (0.0-10.0) % Eos % (Auto) (0.0-4.0) % Baso % (Auto) (0.0-2.0) % Neut # (Auto) (1.8-7.0) K/uL Lymph # (Auto) (1.0-4.3) K/uL [place]duffie # (Auto) (0.0-0.8) K/uL Eos # (Auto) (0.0-0.7) K/uL Baso # (Auto) (0.0-0.2) K/uL Neutrophils % (Manual) (50-75) % Band Neutrophils % (0-2) % Lymphocytes % (Manual) (20-40) % Monocytes % (Manual) (0-10) % Platelet Estimate (NORMAL) Anisocytosis (manual) Puncture Site pCO2 (35-45) mm/Hg pO2 (80-100) mm/Hg HCO3 (21-28) mmol/L ABG pH (7.35-7.45) ABG Total CO2 (22-28) mmol/L ABG O2 Saturation (95-98) % ABG Base Excess (-2.0-3.0) mmol/L ABG Hemoglobin (11.7-17.4) g/dL ABG Carboxyhemoglobin (0.5-1.5) % POC ABG HHb (Measured) (0.0-5.0) % ABG Methemoglobin (0.0-3.0) % Jose Raul Test A-a O2 Difference mm/Hg Respiratory Index Hgb O2 Saturation (95.0-98.0) % Vent Mode Mechanical Rate FiO2 % Tidal Volume PEEP Sodium (132-148) mmol/L Potassium (3.6-5.2) mmol/L Chloride (98-107) mmol/L Carbon Dioxide (22-30) mmol/L Anion Gap (10-20) BUN (9-20) mg/dL Creatinine (0.8-1.5) mg/dL Est GFR ( Amer) Est GFR (Non-Af Amer) POC Glucose (mg/dL) 279 H (65-110) mg/dL Random Glucose (75-110) mg/dL Calcium (8.6-10.4) mg/dl Phosphorus (2.5-4.5) mg/dL Magnesium (1.6-2.3) mg/dL Total Bilirubin (0.2-1.3) mg/dL AST (17-59) U/L ALT (21-72) U/L Alkaline Phosphatase (38-126) U/L Total Protein (6.3-8.3) g/dL Albumin (3.5-5.0) g/dL Globulin (2.2-3.9) gm/dL Albumin/Globulin Ratio (1.0-2.1) Laboratory Results - last 24 hr 10/12/17 10/12/17 10/13/17 17:47 23:40 05:15 WBC RBC Hgb Hct MCV MCH MCHC RDW Plt Count MPV Neut % (Auto) Lymph % (Auto) Mcduffie % (Auto) Eos % (Auto) Baso % (Auto) Neut # (Auto) Lymph # (Auto) [place]duffie # (Auto) Eos # (Auto) Baso # (Auto) Neutrophils % (Manual) Band Neutrophils % Lymphocytes % (Manual) Monocytes % (Manual) Platelet Estimate Anisocytosis (manual) Puncture Site Rr pCO2 33 L pO2 83 HCO3 25.9 ABG pH 7.48 H ABG Total CO2 25.6 ABG O2 Saturation 95.6 ABG Base Excess 1.3 ABG Hemoglobin 8.9 L ABG Carboxyhemoglobin 0.7 POC ABG HHb (Measured) 4.4 ABG Methemoglobin 0.1 Jose Raul Test Pos A-a O2 Difference 161.0 Respiratory Index 1.9 Hgb O2 Saturation 94.8 L Vent Mode Prvc Mechanical Rate 14 FiO2 40.0 Tidal Volume 500 PEEP 5 Sodium Potassium Chloride Carbon Dioxide Anion Gap BUN Creatinine Est GFR ( Amer) Est GFR (Non-Af Amer) POC Glucose (mg/dL) 279 H 262 H Random Glucose Calcium Phosphorus Magnesium Total Bilirubin AST ALT Alkaline Phosphatase Total Protein Albumin Globulin Albumin/Globulin Ratio 10/13/17 10/13/17 10/13/17 05:30 06:16 06:17 WBC 10.6 RBC 2.64 L Hgb 8.3 L Hct 25.5 L MCV 96.3 H MCH 31.3 H MCHC 32.5 L RDW 15.2 H Plt Count 208 MPV 8.6 Neut % (Auto) 87.8 H Lymph % (Auto) 7.7 L Mcduffie % (Auto) 3.9 Eos % (Auto) 0.3 Baso % (Auto) 0.3 Neut # (Auto) 9.3 H Lymph # (Auto) 0.8 L [place]duffie # (Auto) 0.4 Eos # (Auto) 0.0 Baso # (Auto) 0.0 Neutrophils % (Manual) 83 H Band Neutrophils % 1 Lymphocytes % (Manual) 9 L Monocytes % (Manual) 7 Platelet Estimate Normal Anisocytosis (manual) Slight Puncture Site pCO2 pO2 HCO3 ABG pH ABG Total CO2 ABG O2 Saturation ABG Base Excess ABG Hemoglobin ABG Carboxyhemoglobin POC ABG HHb (Measured) ABG Methemoglobin Jose Raul Test A-a O2 Difference Respiratory Index Hgb O2 Saturation Vent Mode Mechanical Rate FiO2 Tidal Volume PEEP Sodium 149 H Potassium 3.8 Chloride 114 H Carbon Dioxide 24 Anion Gap 14 BUN 51 H Creatinine 1.1 Est GFR ( Amer) > 60 Est GFR (Non-Af Amer) > 60 POC Glucose (mg/dL) 280 H Random Glucose 244 H Calcium 7.9 L Phosphorus 3.7 Magnesium 2.0 Total Bilirubin 1.9 H AST 48 ALT 55 Alkaline Phosphatase 95 Total Protein 5.6 L Albumin 2.3 L Globulin 3.4 Albumin/Globulin Ratio 0.7 L 10/13/17 11:36 WBC RBC Hgb Hct MCV MCH MCHC RDW Plt Count MPV Neut % (Auto) Lymph % (Auto) [place]duffie % (Auto) Eos % (Auto) Baso % (Auto) Neut # (Auto) Lymph # (Auto) Mcduffie # (Auto) Eos # (Auto) Baso # (Auto) Neutrophils % (Manual) Band Neutrophils % Lymphocytes % (Manual) Monocytes % (Manual) Platelet Estimate Anisocytosis (manual) Puncture Site pCO2 pO2 HCO3 ABG pH ABG Total CO2 ABG O2 Saturation ABG Base Excess ABG Hemoglobin ABG Carboxyhemoglobin POC ABG HHb (Measured) ABG Methemoglobin Jose Raul Test A-a O2 Difference Respiratory Index Hgb O2 Saturation Vent Mode Mechanical Rate FiO2 Tidal Volume PEEP Sodium Potassium Chloride Carbon Dioxide Anion Gap BUN Creatinine Est GFR ( Amer) Est GFR (Non-Af Amer) POC Glucose (mg/dL) 281 H Random Glucose Calcium Phosphorus Magnesium Total Bilirubin AST ALT Alkaline Phosphatase Total Protein Albumin Globulin Albumin/Globulin Ratio Fingerstick Blood Sugar Results: 262 Review of Systems - Review of Systems Systems not reviewed;Unavailable: Altered Mental Status Assessment/Plan - Assessment and Plan (Free Text) Assessment: 82 yo male admitted for trach and PEG 1. Trach and PEG(10/12) -Sx consult Dr. Loya -resume feeds, glucerna goal 55/hr 2. A fib -Cardio consult Dr. Dawkins -echo WNL 3. HTN -cardizem 30mg PO q6 -lasix 20mg 4. HLD -rosuvastatin 5mg qpm 4. Leukocytosis -WBC 11.4 on admission -ID consult Dr. Wells Ppx -Protonix 40 -no AC due to SDH Pt stable, doing well. Plan to transfer; no longer in need of critical care - Date & Time Date: 10/13/17 Time: 15:50 <Saul Dela Cruz - Last Filed: 10/13/17 17:38> CCU Objective - Vital Signs / Intake & Output Vital Signs (Last 4 hours): Vital Signs Temp Pulse Resp BP Pulse Ox 10/13/17 16:08 105 H 22 137/85 97 10/13/17 16:00 98.8 F 100 H 23 137/85 96 10/13/17 14:00 106 H 23 95 Intake and Output (Last 8hrs): Intake & Output 10/13/17 10/13/17 10/13/17 06:59 14:59 22:59 Intake Total 1110 880 220 Output Total 450 0 0 Balance 660 880 220 Weight 202 lb 13.204 oz Intake: Intake, IV Amount 800 600 150 Right Distal Port PICC 800 600 150 Tube Feeding 250 280 70 Other 60 Output: Urine 450 0 0 Condom 450 0 0 Other: # Bowel Movements 0 0 0 - Medications Active Medications: Active Medications Generic Name Dose Route Start Last Admin Trade Name Freq PRN Reason Stop Dose Admin Acetaminophen 650 mg 10/12/17 21:18 10/12/17 21:54 Tylenol 650mg/20.3ml Solution Ud PO 650 mg Q6 PRN Administration fever 100.4F and above Diltiazem HCl 30 mg 10/09/17 00:45 10/13/17 17:10 Cardizem PO 30 mg Q6 CHARLEEN Administration Furosemide 20 mg 10/09/17 10:00 10/13/17 09:29 Lasix PO 20 mg DAILY CHARLEEN Administration Levetiracetam 500 mg/ Dextrose 105 mls @ 420 mls/hr 10/10/17 23:30 10/13/17 11:51 IVPB 420 mls/hr Q12H CHARLEEN Administration Lactated Ringer's 1,000 mls @ 75 mls/hr 10/11/17 23:45 10/13/17 02:08 Lactated Ringer's IV 75 mls/hr .[id number] CHARLEEN Administration Nafcillin Sodium 2 gm/ Sodium 250 mls @ 250 mls/hr 10/12/17 22:00 10/13/17 15 :53 Chloride IVPB 250 mls/hr Q6H CHARLEEN Administration Protocol Insulin Human Regular 0 unit 10/09/17 06:00 10/13/17 12:00 Novolin R SC Not Given Q6 CHARLEEN Protocol Pantoprazole Sodium 40 mg 10/09/17 10:00 10/13/17 09:29 Protonix Inj IVP 40 mg DAILY CHARLEEN Administration Rosuvastatin Calcium 5 mg 10/09/17 18:00 10/13/17 17:10 Crestor PO 5 mg QPM CHARLEEN Administration - Patient Studies Lab Studies: Lab Studies 10/13/17 10/13/17 10/13/17 Range/Units 11:36 06:17 06:16 WBC 10.6 (4.8-10.8) K/uL RBC 2.64 L (4.40-5.90) Mil/uL Hgb 8.3 L (12.0-18.0) g/dL Hct 25.5 L (35.0-51.0) % MCV 96.3 H (80.0-94.0) fL MCH 31.3 H (27.0-31.0) pg MCHC 32.5 L (33.0-37.0) g/dL RDW 15.2 H (11.5-14.5) % Plt Count 208 (130-400) K/uL MPV 8.6 (7.2-11.7) fL Neut % (Auto) 87.8 H (50.0-75.0) % Lymph % (Auto) 7.7 L (20.0-40.0) % [place]duffie % (Auto) 3.9 (0.0-10.0) % Eos % (Auto) 0.3 (0.0-4.0) % Baso % (Auto) 0.3 (0.0-2.0) % Neut # (Auto) 9.3 H (1.8-7.0) K/uL Lymph # (Auto) 0.8 L (1.0-4.3) K/uL [place]duffie # (Auto) 0.4 (0.0-0.8) K/uL Eos # (Auto) 0.0 (0.0-0.7) K/uL Baso # (Auto) 0.0 (0.0-0.2) K/uL Neutrophils % (Manual) 83 H (50-75) % Band Neutrophils % 1 (0-2) % Lymphocytes % (Manual) 9 L (20-40) % Monocytes % (Manual) 7 (0-10) % Platelet Estimate Normal (NORMAL) Anisocytosis (manual) Slight Puncture Site pCO2 (35-45) mm/Hg pO2 (80-100) mm/Hg HCO3 (21-28) mmol/L ABG pH (7.35-7.45) ABG Total CO2 (22-28) mmol/L ABG O2 Saturation (95-98) % ABG Base Excess (-2.0-3.0) mmol/L ABG Hemoglobin (11.7-17.4) g/dL ABG Carboxyhemoglobin (0.5-1.5) % POC ABG HHb (Measured) (0.0-5.0) % ABG Methemoglobin (0.0-3.0) % Jose Raul Test A-a O2 Difference mm/Hg Respiratory Index Hgb O2 Saturation (95.0-98.0) % Vent Mode Mechanical Rate FiO2 % Tidal Volume PEEP Sodium 149 H (132-148) mmol/L Potassium 3.8 (3.6-5.2) mmol/L Chloride 114 H (98-107) mmol/L Carbon Dioxide 24 (22-30) mmol/L Anion Gap 14 (10-20) BUN 51 H (9-20) mg/dL Creatinine 1.1 (0.8-1.5) mg/dL Est GFR ( Amer) > 60 Est GFR (Non-Af Amer) > 60 POC Glucose (mg/dL) 281 H (65-110) mg/dL Random Glucose 244 H (75-110) mg/dL Calcium 7.9 L (8.6-10.4) mg/dl Phosphorus 3.7 (2.5-4.5) mg/dL Magnesium 2.0 (1.6-2.3) mg/dL Total Bilirubin 1.9 H (0.2-1.3) mg/dL AST 48 (17-59) U/L ALT 55 (21-72) U/L Alkaline Phosphatase 95 (38-126) U/L Total Protein 5.6 L (6.3-8.3) g/dL Albumin 2.3 L (3.5-5.0) g/dL Globulin 3.4 (2.2-3.9) gm/dL Albumin/Globulin Ratio 0.7 L (1.0-2.1) 10/13/17 10/13/17 10/12/17 Range/Units 05:30 05:15 23:40 WBC (4.8-10.8) K/uL RBC (4.40-5.90) Mil/uL Hgb (12.0-18.0) g/dL Hct (35.0-51.0) % MCV (80.0-94.0) fL MCH (27.0-31.0) pg MCHC (33.0-37.0) g/dL RDW (11.5-14.5) % Plt Count (130-400) K/uL MPV (7.2-11.7) fL Neut % (Auto) (50.0-75.0) % Lymph % (Auto) (20.0-40.0) % [place]ffie % (Auto) (0.0-10.0) % Eos % (Auto) (0.0-4.0) % Baso % (Auto) (0.0-2.0) % Neut # (Auto) (1.8-7.0) K/uL Lymph # (Auto) (1.0-4.3) K/uL [place]duffie # (Auto) (0.0-0.8) K/uL Eos # (Auto) (0.0-0.7) K/uL Baso # (Auto) (0.0-0.2) K/uL Neutrophils % (Manual) (50-75) % Band Neutrophils % (0-2) % Lymphocytes % (Manual) (20-40) % Monocytes % (Manual) (0-10) % Platelet Estimate (NORMAL) Anisocytosis (manual) Puncture Site Rr pCO2 33 L (35-45) mm/Hg pO2 83 (80-100) mm/Hg HCO3 25.9 (21-28) mmol/L ABG pH 7.48 H (7.35-7.45) ABG Total CO2 25.6 (22-28) mmol/L ABG O2 Saturation 95.6 (95-98) % ABG Base Excess 1.3 (-2.0-3.0) mmol/L ABG Hemoglobin 8.9 L (11.7-17.4) g/dL ABG Carboxyhemoglobin 0.7 (0.5-1.5) % POC ABG HHb (Measured) 4.4 (0.0-5.0) % ABG Methemoglobin 0.1 (0.0-3.0) % Jose Raul Test Pos A-a O2 Difference 161.0 mm/Hg Respiratory Index 1.9 Hgb O2 Saturation 94.8 L (95.0-98.0) % Vent Mode Prvc Mechanical Rate 14 FiO2 40.0 % Tidal Volume 500 PEEP 5 Sodium (132-148) mmol/L Potassium (3.6-5.2) mmol/L Chloride (98-107) mmol/L Carbon Dioxide (22-30) mmol/L Anion Gap (10-20) BUN (9-20) mg/dL Creatinine (0.8-1.5) mg/dL Est GFR ( Amer) Est GFR (Non-Af Amer) POC Glucose (mg/dL) 280 H 262 H (65-110) mg/dL Random Glucose (75-110) mg/dL Calcium (8.6-10.4) mg/dl Phosphorus (2.5-4.5) mg/dL Magnesium (1.6-2.3) mg/dL Total Bilirubin (0.2-1.3) mg/dL AST (17-59) U/L ALT (21-72) U/L Alkaline Phosphatase (38-126) U/L Total Protein (6.3-8.3) g/dL Albumin (3.5-5.0) g/dL Globulin (2.2-3.9) gm/dL Albumin/Globulin Ratio (1.0-2.1) / Range/Units 17:47 WBC (4.8-10.8) K/uL RBC (4.40-5.90) Mil/uL Hgb (12.0-18.0) g/dL Hct (35.0-51.0) % MCV (80.0-94.0) fL MCH (27.0-31.0) pg MCHC (33.0-37.0) g/dL RDW (11.5-14.5) % Plt Count (130-400) K/uL MPV (7.2-11.7) fL Neut % (Auto) (50.0-75.0) % Lymph % (Auto) (20.0-40.0) % [place]ffie % (Auto) (0.0-10.0) % Eos % (Auto) (0.0-4.0) % Baso % (Auto) (0.0-2.0) % Neut # (Auto) (1.8-7.0) K/uL Lymph # (Auto) (1.0-4.3) K/uL [place]ffie # (Auto) (0.0-0.8) K/uL Eos # (Auto) (0.0-0.7) K/uL Baso # (Auto) (0.0-0.2) K/uL Neutrophils % (Manual) (50-75) % Band Neutrophils % (0-2) % Lymphocytes % (Manual) (20-40) % Monocytes % (Manual) (0-10) % Platelet Estimate (NORMAL) Anisocytosis (manual) Puncture Site pCO2 (35-45) mm/Hg pO2 (80-100) mm/Hg HCO3 (21-28) mmol/L ABG pH (7.35-7.45) ABG Total CO2 (22-28) mmol/L ABG O2 Saturation (95-98) % ABG Base Excess (-2.0-3.0) mmol/L ABG Hemoglobin (11.7-17.4) g/dL ABG Carboxyhemoglobin (0.5-1.5) % POC ABG HHb (Measured) (0.0-5.0) % ABG Methemoglobin (0.0-3.0) % Jose Raul Test A-a O2 Difference mm/Hg Respiratory Index Hgb O2 Saturation (95.0-98.0) % Vent Mode Mechanical Rate FiO2 % Tidal Volume PEEP Sodium (132-148) mmol/L Potassium (3.6-5.2) mmol/L Chloride (98-107) mmol/L Carbon Dioxide (22-30) mmol/L Anion Gap (10-20) BUN (9-20) mg/dL Creatinine (0.8-1.5) mg/dL Est GFR ( Amer) Est GFR (Non-Af Amer) POC Glucose (mg/dL) 279 H (65-110) mg/dL Random Glucose (75-110) mg/dL Calcium (8.6-10.4) mg/dl Phosphorus (2.5-4.5) mg/dL Magnesium (1.6-2.3) mg/dL Total Bilirubin (0.2-1.3) mg/dL AST (17-59) U/L ALT (21-72) U/L Alkaline Phosphatase (38-126) U/L Total Protein (6.3-8.3) g/dL Albumin (3.5-5.0) g/dL Globulin (2.2-3.9) gm/dL Albumin/Globulin Ratio (1.0-2.1) Laboratory Results - last 24 hr 10/12/17 10/12/17 10/13/17 17:47 23:40 05:15 WBC RBC Hgb Hct MCV MCH MCHC RDW Plt Count MPV Neut % (Auto) Lymph % (Auto) [place] % (Auto) Eos % (Auto) Baso % (Auto) Neut # (Auto) Lymph # (Auto) [place]ff[place] # (Auto) Eos # (Auto) Baso # (Auto) Neutrophils % (Manual) Band Neutrophils % Lymphocytes % (Manual) Monocytes % (Manual) Platelet Estimate Anisocytosis (manual) Puncture Site Rr pCO2 33 L pO2 83 HCO3 25.9 ABG pH 7.48 H ABG Total CO2 25.6 ABG O2 Saturation 95.6 ABG Base Excess 1.3 ABG Hemoglobin 8.9 L ABG Carboxyhemoglobin 0.7 POC ABG HHb (Measured) 4.4 ABG Methemoglobin 0.1 Jose Raul Test Pos A-a O2 Difference 161.0 Respiratory Index 1.9 Hgb O2 Saturation 94.8 L Vent Mode Prvc Mechanical Rate 14 FiO2 40.0 Tidal Volume 500 PEEP 5 Sodium Potassium Chloride Carbon Dioxide Anion Gap BUN Creatinine Est GFR ( Amer) Est GFR (Non-Af Amer) POC Glucose (mg/dL) 279 H 262 H Random Glucose Calcium Phosphorus Magnesium Total Bilirubin AST ALT Alkaline Phosphatase Total Protein Albumin Globulin Albumin/Globulin Ratio 10/13/17 10/13/17 10/13/17 05:30 06:16 06:17 WBC 10.6 RBC 2.64 L Hgb 8.3 L Hct 25.5 L MCV 96.3 H MCH 31.3 H MCHC 32.5 L RDW 15.2 H Plt Count 208 MPV 8.6 Neut % (Auto) 87.8 H Lymph % (Auto) 7.7 L [place] % (Auto) 3.9 Eos % (Auto) 0.3 Baso % (Auto) 0.3 Neut # (Auto) 9.3 H Lymph # (Auto) 0.8 L [place] # (Auto) 0.4 Eos # (Auto) 0.0 Baso # (Auto) 0.0 Neutrophils % (Manual) 83 H Band Neutrophils % 1 Lymphocytes % (Manual) 9 L Monocytes % (Manual) 7 Platelet Estimate Normal Anisocytosis (manual) Slight Puncture Site pCO2 pO2 HCO3 ABG pH ABG Total CO2 ABG O2 Saturation ABG Base Excess ABG Hemoglobin ABG Carboxyhemoglobin POC ABG HHb (Measured) ABG Methemoglobin Jose Raul Test A-a O2 Difference Respiratory Index Hgb O2 Saturation Vent Mode Mechanical Rate FiO2 Tidal Volume PEEP Sodium 149 H Potassium 3.8 Chloride 114 H Carbon Dioxide 24 Anion Gap 14 BUN 51 H Creatinine 1.1 Est GFR ( Amer) > 60 Est GFR (Non-Af Amer) > 60 POC Glucose (mg/dL) 280 H Random Glucose 244 H Calcium 7.9 L Phosphorus 3.7 Magnesium 2.0 Total Bilirubin 1.9 H AST 48 ALT 55 Alkaline Phosphatase 95 Total Protein 5.6 L Albumin 2.3 L Globulin 3.4 Albumin/Globulin Ratio 0.7 L 10/13/17 11:36 WBC RBC Hgb Hct MCV MCH MCHC RDW Plt Count MPV Neut % (Auto) Lymph % (Auto) [place] % (Auto) Eos % (Auto) Baso % (Auto) Neut # (Auto) Lymph # (Auto) [place] # (Auto) Eos # (Auto) Baso # (Auto) Neutrophils % (Manual) Band Neutrophils % Lymphocytes % (Manual) Monocytes % (Manual) Platelet Estimate Anisocytosis (manual) Puncture Site pCO2 pO2 HCO3 ABG pH ABG Total CO2 ABG O2 Saturation ABG Base Excess ABG Hemoglobin ABG Carboxyhemoglobin POC ABG HHb (Measured) ABG Methemoglobin Jose Raul Test A-a O2 Difference Respiratory Index Hgb O2 Saturation Vent Mode Mechanical Rate FiO2 Tidal Volume PEEP Sodium Potassium Chloride Carbon Dioxide Anion Gap BUN Creatinine Est GFR ( Amer) Est GFR (Non-Af Amer) POC Glucose (mg/dL) 281 H Random Glucose Calcium Phosphorus Magnesium Total Bilirubin AST ALT Alkaline Phosphatase Total Protein Albumin Globulin Albumin/Globulin Ratio Attending/Attestation - Attestation I have personally seen and examined this patient.: Yes I have fully participated in the care of the patient.: Yes I have reviewed all pertinent clinical information: Yes Notes (Text): 10/13/17 17:38 patient seen and examined in the intensive care unit. Status post tracheostomy and PEG insertion Stable for transfer to floor
--- NOTE | 2017-10-13 21:20 | CP.PCM.PN ---
Subjective - Date & Time of Evaluation Date of Evaluation: 10/13/17 Time of Evaluation: 21:20 - Subjective Subjective: Patient is unresponsive. Vague reflux noted. Cough reflex noted. Had a tracheostomy and feeding tube yesterday. TLC was changed On examination: Vital signs otherwise stable. Chest good air entry Secretions noted. Edema present generalized Assessment and recommendation: 82-year-old male admitted with the atrial fibrillation, bilateral subdural hemorrhages status post craniectomy. Also frontal hemorrhage noted. Multiple stroke in the past. Overall prognosis very poor. Spoke to the patient's son yesterday. Objective - Vital Signs/Intake and Output Vital Signs (last 24 hours): Temp Pulse Resp BP Pulse Ox 98.8 F 107 H 24 137/85 94 L 10/13/17 16:00 10/13/17 18:00 10/13/17 18:00 10/13/17 16:08 10/13/17 18:00 Intake and Output: 10/13/17 10/14/17 18:59 06:59 Intake Total 1100 Output Total 0 Balance 1100 - Medications Medications: Current Medications Acetaminophen (Tylenol 650mg/20.3ml Solution Ud) 650 mg PO Q6 PRN PRN Reason: fever 100.4F and above Last Admin: 10/12/17 21:54 Dose: 650 mg Diltiazem HCl (Cardizem) 30 mg PO Q6 CHARLEEN Last Admin: 10/13/17 17:10 Dose: 30 mg Furosemide (Lasix) 20 mg PO DAILY [facility] Last Admin: 10/13/17 09:29 Dose: 20 mg Levetiracetam 500 mg/ Dextrose 105 mls @ 420 mls/hr IVPB Q12H CHARLEEN Last Admin: 10/13/17 11:51 Dose: 420 mls/hr Lactated Ringer's (Lactated Ringer's) 1,000 mls @ 75 mls/hr IV .[id number] CHARLEEN Last Admin: 10/13/17 18:50 Dose: 75 mls/hr Nafcillin Sodium 2 gm/ Sodium (Chloride) 250 mls @ 250 mls/hr IVPB Q6H CHARLEEN PRN Reason: Protocol Last Admin: 10/13/17 15:53 Dose: 250 mls/hr Insulin Human Regular (Novolin R) 0 unit SC Q6 CHARLEEN PRN Reason: Protocol Last Admin: 10/13/17 18:49 Dose: 4 u Pantoprazole Sodium (Protonix Inj) 40 mg IVP DAILY CHARLEEN Last Admin: 10/13/17 09:29 Dose: 40 mg Rosuvastatin Calcium (Crestor) 5 mg PO QPM CHARLEEN Last Admin: 10/13/17 17:10 Dose: 5 mg - Labs Labs: 10/13/17 06:17 10/13/17 06:16 PT 14.6 SECONDS (9.7-12.2) H 10/12/17 06:24 INR 1.3 10/12/17 06:24 APTT 31 SECONDS (21-34) 10/12/17 06:24
--- NOTE | 2017-10-13 21:20 | CP.PCM.HP ---
Past Patient History - Infectious Disease Hx of Infectious Diseases: None - Tetanus Immunizations Tetanus Immunization: Unknown - Past Medical History & Family History Past Medical History?: Yes - Past Social History Smoking Status: Never Smoked - CARDIAC Hx Atrial Fibrillation: Yes Hx Cardia Arrhythmia: Yes Hx Hypercholesterolemia: Yes Hx Hypertension: Yes - PULMONARY Hx Pneumonia: Yes - NEUROLOGICAL Hx Alzheimer's Disease: Yes Hx Dementia: Yes Hx Seizures: No - HEENT Hx HEENT Problems: No - RENAL Hx Chronic Kidney Disease: No - ENDOCRINE/METABOLIC Hx Diabetes Mellitus Type 1: Yes - HEMATOLOGICAL/ONCOLOGICAL Hx Human Immunodeficiency Virus (HIV): No - INTEGUMENTARY Hx Dermatological Problems: No - MUSCULOSKELETAL/RHEUMATOLOGICAL Hx Falls: Yes - GASTROINTESTINAL Hx Gastrointestinal Disorders: No Other/Comment: pt has oral gastric feeding tube on arrival to ed - GENITOURINARY/GYNECOLOGICAL Hx Sexually Transmitted Disorders: No - PSYCHIATRIC Hx Substance Use: No - SURGICAL HISTORY Hx Surgeries: No Other/Comment: august 2017, bilat craniotomy abd surgery - ANESTHESIA Hx Anesthesia: Yes Hx Anesthesia Reactions: No Hx Malignant Hyperthermia: No Meds Allergies/Adverse Reactions: Allergies Allergy/AdvReac Type Severity Reaction Status Date / Time No Known Allergies Allergy Verified 10/08/17 23:18 Results - Vital Signs Recent Vital Signs: Last Vital Signs Temp 98.8 F 10/13/17 16:00 Pulse 107 H 10/13/17 18:00 Resp 24 10/13/17 18:00 BP 137/85 10/13/17 16:08 Pulse Ox 94 L 10/13/17 18:00 - Labs Result Diagrams: 10/13/17 06:17 10/13/17 06:16 Labs: Laboratory Results - last 24 hr 10/12/17 10/13/17 10/13/17 23:40 05:15 05:30 WBC RBC Hgb Hct MCV MCH MCHC RDW Plt Count MPV Neut % (Auto) Lymph % (Auto) [place] % (Auto) Eos % (Auto) Baso % (Auto) Neut # (Auto) Lymph # (Auto) [place] # (Auto) Eos # (Auto) Baso # (Auto) Neutrophils % (Manual) Band Neutrophils % Lymphocytes % (Manual) Monocytes % (Manual) Platelet Estimate Anisocytosis (manual) Puncture Site Rr pCO2 33 L pO2 83 HCO3 25.9 ABG pH 7.48 H ABG Total CO2 25.6 ABG O2 Saturation 95.6 ABG Base Excess 1.3 ABG Hemoglobin 8.9 L ABG Carboxyhemoglobin 0.7 POC ABG HHb (Measured) 4.4 ABG Methemoglobin 0.1 Jose Raul Test Pos A-a O2 Difference 161.0 Respiratory Index 1.9 Hgb O2 Saturation 94.8 L Vent Mode Prvc Mechanical Rate 14 FiO2 40.0 Tidal Volume 500 PEEP 5 Sodium Potassium Chloride Carbon Dioxide Anion Gap BUN Creatinine Est GFR ( Amer) Est GFR (Non-Af Amer) POC Glucose (mg/dL) 262 H 280 H Random Glucose Calcium Phosphorus Magnesium Total Bilirubin AST ALT Alkaline Phosphatase Total Protein Albumin Globulin Albumin/Globulin Ratio 10/13/17 10/13/17 10/13/17 06:16 06:17 11:36 WBC 10.6 RBC 2.64 L Hgb 8.3 L Hct 25.5 L MCV 96.3 H MCH 31.3 H MCHC 32.5 L RDW 15.2 H Plt Count 208 MPV 8.6 Neut % (Auto) 87.8 H Lymph % (Auto) 7.7 L [place] % (Auto) 3.9 Eos % (Auto) 0.3 Baso % (Auto) 0.3 Neut # (Auto) 9.3 H Lymph # (Auto) 0.8 L [place] # (Auto) 0.4 Eos # (Auto) 0.0 Baso # (Auto) 0.0 Neutrophils % (Manual) 83 H Band Neutrophils % 1 Lymphocytes % (Manual) 9 L Monocytes % (Manual) 7 Platelet Estimate Normal Anisocytosis (manual) Slight Puncture Site pCO2 pO2 HCO3 ABG pH ABG Total CO2 ABG O2 Saturation ABG Base Excess ABG Hemoglobin ABG Carboxyhemoglobin POC ABG HHb (Measured) ABG Methemoglobin Jose Raul Test A-a O2 Difference Respiratory Index Hgb O2 Saturation Vent Mode Mechanical Rate FiO2 Tidal Volume PEEP Sodium 149 H Potassium 3.8 Chloride 114 H Carbon Dioxide 24 Anion Gap 14 BUN 51 H Creatinine 1.1 Est GFR ( Amer) > 60 Est GFR (Non-Af Amer) > 60 POC Glucose (mg/dL) 281 H Random Glucose 244 H Calcium 7.9 L Phosphorus 3.7 Magnesium 2.0 Total Bilirubin 1.9 H AST 48 ALT 55 Alkaline Phosphatase 95 Total Protein 5.6 L Albumin 2.3 L Globulin 3.4 Albumin/Globulin Ratio 0.7 L
--- NOTE | 2017-10-13 22:31 | PN ---
DATE: 10/13/2017 FOLLOWUP SUBJECTIVE: The patient is responsive to ventilator. No reported hypotension or ventricular tachycardia. He is in chronic atrial fibrillation. PHYSICAL EXAMINATION: VITAL SIGNS: Blood pressure 137/85, heart rate 100, temperature 98.8, respirations 23. HEENT: Pale conjunctivae. CHEST: Absent breath sounds over the bases. HEART: S1 and S2, irregular. ABDOMEN: Positive bowel sounds. EXTREMITIES: 2+ arm and leg edema. LABORATORY DATA: Today's SMA-7: Sodium 149, potassium 3.8, chloride 114, CO2 of 24, glucose 144, BUN 51, creatinine 1.1. Today's hemoglobin and hematocrit 8.3 and 25.5. White count and platelet counts are within normal limits. Today's chest x-ray revealed mild CHF. ASSESSMENT: 1. Chronic atrial fibrillation. 2. Status post bilateral craniotomy last month for bilateral subdural hematoma. 3. [id number] pulmonary hypertension. 4. Status post tracheostomy and gastrostomy feeding tube placement yesterday. 5. Staphylococcus aureus bacteremia. RECOMMENDATIONS: Continue Cardizem 30 mg every 6 hours via gastrostomy tube. Continue Crestor 5 mg daily, Lasix 20 mg daily via gastrostomy tube. Continue IV nafcillin at 2 gm every 6 hours. The patient is scheduled to undergo replacement of his PICC line. Marquis Dawkins MD
[2017-10-14] MEDS: (Novolin R) Insulin Human Regular 100 units/ml vial SC SCH ×4 (00:53→18:11)
--- NOTE | 2017-10-14 07:56 | CON ---
DATE: 10/13/2017 INFECTIOUS DISEASE CONSULTATION REQUESTED BY: Danika Carballo MD HISTORY OF PRESENT ILLNESS: This patient is an 82-year-old male. He has had bilateral temporal subdural hematoma evacuation recently in August and was in [facility] He also suffers from hypertension, CVA, hyperlipidemia, diabetes mellitus, subdural hematoma status post craniotomy evacuation, respiratory failure on vent. He was recently transferred, as he needed a trach and a PEG, and the patient is not able given any history. He is also in contact precaution because of herpes zoster, but the lesions have dried up at this time. I am asked to evaluate because his blood cultures came out positive for gram-positive cocci and growing Staph aureus. He also had a PICC line, which was just recently removed and they have placed a new IJ catheter at this time and he remains intubated. PAST MEDICAL HISTORY: Negative otherwise. SOCIAL HISTORY: Negative. CARDIAC HISTORY: Significant for atrial fibrillation, history of cardiac arrhythmias, hypercholesterolemia, hypertension. PULMONARY HISTORY: Pneumonia. NEUROLOGICAL HISTORY: Dementia. No history of seizures, and problems, but he is on a ventilator. RENAL HISTORY: Negative. Diabetes is present. He has no HIV disease. No skin problems. He had a feeding tube when he was brought to the ER and need a trach and a PEG, and in August 2017, he had a craniotomy bilateral and abdominal surgeries. I am not sure about the abdominal surgery, . ALLERGIES: HE IS NOT ALLERGIC TO ANY MEDICINES. MEDICATIONS: When he was brought, he was on diltiazem, furosemide, Zosyn, pantoprazole, and Crestor. Now, the medications I just started, he is on Tylenol, diltiazem, furosemide. He is on Novolin R. He is on Keppra and he is on aspirin (02:46) at this time 2 grams every 6 hours. He is on Protonix and he is on Crestor. He was on Zosyn and he did get one dose of vancomycin and I advised him to nasaline . PAST SURGICAL HISTORY: He did have a surgery done by Dr. Loya. He had surgeries. Surgery was percutaneous trach and flexible bronch insertion of percutaneous tracheostomy and PEG insertion and an EGD, which was done on 10/12/2017, that is yesterday. PHYSICAL EXAMINATION GENERAL: He remains unresponsive, has two areas of multiple jose on bilateral parietal area, and he is on a trach vent at this time. FiO2 of 40%. He has a right-sided triple lumen. VITAL SIGNS: Temperature is 98.8, heart rate of 107, blood pressure is 137/85, respirations are 22. He is on FiO2 40%. NECK: Supple. LUNGS: Clear. No crackles or rales. Decreased breath sounds bilaterally. HEART: S1 and S2 are regular. ABDOMEN: Soft. PEG tube is present. He is getting feeding at this time. Left upper chest, the lesions of herpes have healed, so I do not think he needs any isolation. Abdomen is soft and nontender. EXTREMITIES: Have bilateral edema, upper as well as lower have edema. MENTAL STATUS: I am not sure about, as he is unresponsive and has foot protectors. LABORATORY DATA: White count is 10.6, hemoglobin 8.3, hematocrit 25.5, platelets count is 208. His hemoglobin is about the same as before. His lab chemistry shows sodium of 149, potassium 3.8, chloride 114, hypernatremic. Anion gap is 14. BUN is 51 and creatinine is 1.1. Glucose is 281. LFTs are unremarkable except for total bili, which is 1.9, so will need to be monitored. Blood cultures were Staph aureus. The Staph aureus sensitivity shows that either doxycycline sensitive; however, doxycycline sensitivity is 1; and rifampin sensitive; tetracycline, trimethoprim, vancomycin; and the other thing that I want to see is head CT here because he did have a line when he came here and it could be line sepsis from the PICC line, but he has status post surgery also for bilateral hematoma, so I would suggest at least to repeat the CAT scan tomorrow and to continue nasaline at this time. Check the echocardiogram to rule out any vegetation and if the echo is negative, then he will need nasaline for 14 days and we started it yesterday, so today is second day of that 14 days if the echo is negative for any vegetation. The patient remains hypernatremic. He is status post trach and PEG, status post bilateral subdural hematoma evacuation after a fall. Carlos Wells MD
--- NOTE | 2017-10-14 13:46 | RAD ---
Date of service: 10/14/2017 PROCEDURE: CHEST RADIOGRAPH, 1 VIEW HISTORY: picc line insertion COMPARISON: Portable chest 10/13/2017. FINDINGS: LUNGS: Tracheostomy tube and right central venous line are unchanged in position and interval left PICC inserted terminating at the superior vena cava. Right pleural effusion remains mild but appears slightly increased in the interval. This may be a function of differences in positioning. Small left pleural effusion is unchanged. Underlying bibasilar airspace disease remains difficult to exclude. No pneumothorax bilaterally. PLEURA: As above. CARDIOVASCULAR: Cardiac silhouette appears stable remaining mildly enlarged with no pulmonary vascular derangement evident grossly. OSSEOUS STRUCTURES: No significant abnormalities. VISUALIZED UPPER ABDOMEN: Normal. OTHER FINDINGS: None. IMPRESSION: Interval left PICC insertion terminating at superior vena cava. No pneumothorax bilaterally. Trachea to the right center venous line unchanged. Mild bilateral pleural effusions persist, potentially increased at the right with underlying airspace disease difficult exclude bilaterally.
--- NOTE | 2017-10-14 14:36 | CP.PCM.PN ---
Subjective - Date & Time of Evaluation Date of Evaluation: 10/14/17 Time of Evaluation: 02:00 - Subjective Subjective: dictated Objective - Vital Signs/Intake and Output Vital Signs (last 24 hours): Temp Pulse Resp BP Pulse Ox 98.8 F 106 H 21 158/99 H 100 10/14/17 12:00 10/14/17 14:00 10/14/17 14:00 10/14/17 14:11 10/14/17 14:00 Intake and Output: 10/14/17 10/14/17 06:59 18:59 Intake Total 2145 Output Total 350 Balance 1795 - Medications Medications: Current Medications Acetaminophen (Tylenol 650mg/20.3ml Solution Ud) 650 mg PO Q6 PRN PRN Reason: fever 100.4F and above Last Admin: 10/12/17 21:54 Dose: 650 mg Diltiazem HCl (Cardizem) 30 mg PO Q6 CHARLEEN Last Admin: 10/14/17 13:00 Dose: 30 mg Furosemide (Lasix) 20 mg PO DAILY CHARLEEN Last Admin: 10/14/17 09:26 Dose: 20 mg Levetiracetam 500 mg/ Dextrose 105 mls @ 420 mls/hr IVPB Q12H CHARLEEN Last Admin: 10/14/17 10:45 Dose: 420 mls/hr Nafcillin Sodium 2 gm/ Sodium (Chloride) 250 mls @ 250 mls/hr IVPB Q6H CHARLEEN PRN Reason: Protocol Last Admin: 10/14/17 09:12 Dose: 250 mls/hr Insulin Human Regular (Novolin R) 0 unit SC Q6 CHARLEEN PRN Reason: Protocol Last Admin: 10/14/17 13:00 Dose: 4 u Pantoprazole Sodium (Protonix Inj) 40 mg IVP DAILY CHARLEEN Last Admin: 10/14/17 09:12 Dose: 40 mg Rosuvastatin Calcium (Crestor) 5 mg PO QPM CHARLEEN Last Admin: 10/13/17 17:10 Dose: 5 mg - Labs Labs: 10/13/17 06:17 10/13/17 06:16 PT 14.6 SECONDS (9.7-12.2) H 10/12/17 06:24 INR 1.3 10/12/17 06:24 APTT 31 SECONDS (21-34) 10/12/17 06:24
[2017-10-14 17:10] VITALS: O2SAT 96
--- NOTE | 2017-10-14 21:45 | PN ---
DATE: 10/14/2017 SUBJECTIVE: The patient is unresponsive, on a ventilator. He is still hypertensive. He underwent a PICC line placement. PHYSICAL EXAMINATION: VITAL SIGNS: Blood pressure 158/99, heart rate 106, respirations 21, temperature 98.8. HEENT: Pale conjunctivae. CHEST: Absent breath sounds over the bases. HEART: S1 and S2, regular. EXTREMITIES: 2+ leg edema. Chest x-ray report, interval left PICC line insertion terminating at the superior vena cava. No pneumothorax. . ASSESSMENT: 1. Chronic atrial fibrillation. 2. Bilateral subdural hematoma, status post bilateral craniotomy. 3. Mild pulmonary hypertension. 4. Staphylococcus aureus bacteremia. 5. A 9-mm hemorrhage in the right inferior paramedian frontal lobe. RECOMMENDATIONS: Continue Cardizem 30 mg every 6 hours via gastrostomy tube, Lasix 20 mg daily, nafcillin 2 gm intravenous every 6 hours, Protonix 40 mg intravenously daily. Marquis Dawkins MD
[2017-10-15] MEDS: (Novolin R) Insulin Human Regular 100 units/ml vial SC SCH (00:23)
[2017-10-15 00:57] VITALS: BP 143/96; PULSE 109; RESP 23
[2017-10-15 00:59] VITALS: TEMP 98
--- NOTE | 2017-10-15 01:11 | PN ---
DATE: 10/14/2017 SUBJECTIVE: The patient remains in the ICU. He is sedated. He is totally comatosed. Actually on trach vent. He has parietal jose on both sides of his head. PHYSICAL EXAMINATION: VITAL SIGNS: T-max is 98, heart rate is 104, blood pressure 137/80, respirations are 19, respirations are 20 on the trach vent. HEENT: Head is described above. NECK: Supple. LUNGS: Clear. No crackles or rales present. HEART: S1, S2 are regular. ABDOMEN: Soft, nontender. PEG tube present. EXTREMITIES: Edema bilaterally. Upper and lower both have edema. LABORATORY DATA: White count is 10.6, hemoglobin 8.3, hematocrit 25.5, platelet count is 208. He has a PICC line on the left side of his left arm, and he is on nafcillin. We need repeat blood cultures, so we will order blood cultures right now as he did have positive cultures before and to see if they are getting negative as he is on treatment. We will get a blood culture done tomorrow morning and will continue with the nafcillin, and he needs nafcillin for two weeks as echo is negative for any vegetation. Echo report is from 10/09/2017. Echo final report shows left ventricular systolic function is normal. The ejection fraction is 65 to 70, [id number] aortic regurgitation, mild regurgitation, mitral regurgitation is mild to moderate, mild TR, tricuspid regurgitation, pulmonic valve is not visualized. There is [id number] pulmonary hypertension, so it is abnormal, but there is no aortic valvular vegetation. At this time, he was started on the nafcillin and should continue on that and complete two weeks. Carlos Wells MD
== END 2017-10-15 01:02 | DRG 4 ==
LOC: C.ER 23:04 → SUPCPDRO 23:04 → C.9I 10-09 00:39
PROVIDERS: ADMIT Internal Medicine; ATTEND Internal Medicine
PROC: 5A1945Z Respiratory Ventilation, 24-96 Consecutive Hours (ICD-10-PCS; 2017-10-09)
PROC: 0DH68UZ Insertion of Feeding Device into Stomach, Via Natural or Artificial Opening Endoscopic (ICD-10-PCS; 2017-10-12)
PROC: 05HM33Z Insertion of Infusion Device into Right Internal Jugular Vein, Percutaneous Approach (ICD-10-PCS; 2017-10-12)
PROC: B543ZZA Ultrasonography of Right Jugular Veins, Guidance (ICD-10-PCS; 2017-10-12)
PROC: 0B113F4 Bypass Trachea to Cutaneous with Tracheostomy Device, Percutaneous Approach (ICD-10-PCS; principal; 2017-10-12 08:00)
PROC: 0B938ZZ Drainage of Right Main Bronchus, Via Natural or Artificial Opening Endoscopic (ICD-10-PCS; 2017-10-12 08:00)
PROC: 02HV33Z Insertion of Infusion Device into Superior Vena Cava, Percutaneous Approach (ICD-10-PCS; 2017-10-14)
DX: J96.00 Acute respiratory failure, unspecified whether with hypoxia or hypercapnia (principal); Z99.11 Dependence on respirator [ventilator] status; R78.81 Bacteremia; S06.5X9D Traumatic subdural hemorrhage with loss of consciousness of unspecified duration, subsequent encounter; I61.1 Nontraumatic intracerebral hemorrhage in hemisphere, cortical; R13.10 Dysphagia, unspecified; I48.2 Chronic atrial fibrillation; I27.20 Pulmonary hypertension, unspecified; I10 Essential (primary) hypertension; G30.9 Alzheimer's disease, unspecified; F02.80 Dementia in other diseases classified elsewhere, unspecified severity, without behavioral disturbance, psychotic disturbance, mood disturbance, and anxiety; E10.65 Type 1 diabetes mellitus with hyperglycemia; K21.9 Gastro-esophageal reflux disease without esophagitis; D64.9 Anemia, unspecified; B95.61 Methicillin susceptible Staphylococcus aureus infection as the cause of diseases classified elsewhere; I49.3 Ventricular premature depolarization; B02.9 Zoster without complications; E78.5 Hyperlipidemia, unspecified; E78.00 Pure hypercholesterolemia, unspecified; Z79.01 Long term (current) use of anticoagulants; Z79.4 Long term (current) use of insulin; Z86.73 Personal history of transient ischemic attack (TIA), and cerebral infarction without residual deficits; Z87.01 Personal history of pneumonia (recurrent)